=== PATIENT | female | born 1930 | race Caucasian/White ===

== ENCOUNTER 2016-06-19 10:10 | Inpatient (IN) ==
[2016-06-19] MEDS ORDERED: methylPREDNISolone 125 MG/2 ML VIAL IVP ONE (10:19)
[2016-06-19] MEDS ORDERED: Ipratropium/Albuterol Neb 3 ML IH ONE (10:19)
--- NOTE | 2016-06-19 10:33 | Emergency Department Note ---
Disposition Clinical Impression: Acute exacerbation of chronic obstructive airways disease, SVT ( supraventricular tachycardia) Disposition: Admitted As Inpatient Condition: Fair Referrals: NO,PCP [Non-Partnered Physician] - Forms: ED Satisfaction Letter SOB HPI - General Chief Complaint: ED Shortness of Breath/Dyspnea Stated Complaint: Shortness of breath Time Seen by Provider: 06/19/16 10:16 Source: patient, family Limitations: no limitations Nursing Notes Reviewed: Yes Vital Signs Reviewed: Yes - History of Present Illness 86-year-old history of COPD comes in complaining of increasing shortness of breath. Patient apparently left her breathing machine at another house when she was visiting. Does also have a history of blood clots and been off Xarelto since beginning of April. Pt Subjective Complaint: shortness of breath Severity: moderate Consistency/Duration: constant Improves with: nothing Worsens with: exertion Known history of: COPD Treatment prior to arrival: none Cough Frequency: Intermittent - Related Data Home Medications Medication Instructions Recorded Confirmed Albuterol Sulfate [Proair Hfa] 2 puff IH Q4H PRN 10/23/15 04/25/16 Donepezil [Aricept] 5 mg PO HS 10/23/15 04/25/16 Furosemide [Lasix] 40 mg PO DAILY PRN 10/23/15 04/25/16 Rivaroxaban [Xarelto] 20 mg PO DAILY 04/26/16 04/26/16 Previous Rx's Medication Instructions Recorded Metoprolol XL (24 HR) Succ [Toprol 12.5 mg PO DAILY #30 tab.er.24h 10/27/15 Xl] Levofloxacin 500 mg PO DAILY #5 tablet 04/28/16 Allergies Allergy/AdvReac Type Severity Reaction Status Date / Time cefdinir [From Omnicef] Allergy Hypertensio Verified 04/25/16 17:00 n Constitutional: Denies: fever, chills, weakness, weight change Eyes: Denies: eye pain, eye discharge, vision change ENT ED: Denies: ear pain, throat pain, dental pain, hearing loss, epistaxis, congestion, dysphagia Cardiovascular: Denies: chest pain, palpitations, dyspnea on exertion, edema, syncope Respiratory: Reports: cough, dyspnea, wheezes. Denies: hemoptysis, stridor Gastrointestinal: Denies: abdominal pain, nausea, vomiting, diarrhea, constipation, hematemesis, melena, hematochezia Genitourinary: Denies: dysuria, frequency, hematuria, discharge Musculoskeletal: Denies: back pain, neck pain, arthralgia, myalgia Integumentary: Denies: rash, abrasion, lesions Neurological: Denies: headache, weakness, numbness, paresthesias, confusion, abnormal gait, vertigo Psychiatric: Denies: anxiety, depression, suicidal thoughts, homicidal thoughts , auditory hallucinations, visual hallucinations Endocrine: Denies: fatigue Hematological/Lymphatic: Denies: easy bleeding, easy bruising Allergic/Immunologic: Denies: facial swelling, urticaria Past Medical History - Past Medical History Medical history: Reports: hypertension, pulmonary embolus, other Psychiatric history: Reports: no psych history - Social History Smoking Status: Never smoker Smokeless Tobacco Status: No Alcohol use: Reports: none Drug use: Reports: none Physical Exam - General Limitations: no limitations General appearance: alert, in no apparent distress - Head Head exam: atraumatic, normocephalic, normal inspection - Eye Eye exam: Present: normal appearance, PERRL, EOMI - ENT ENT exam: normal exam, normal oropharynx, mucous membranes moist - Neck Neck exam: Present: normal inspection, full ROM, trachea midline - Chest Chest inspection: Present: normal inspection, symmetric chest wall rise - Respiratory Respiratory exam: Present: normal lung sounds bilaterally, wheezes - Cardiovascular Cardiovascular exam: Present: regular rate - Abdominal Exam Abdominal exam: Present: soft, Non-Tender. Absent: tenderness, distention, guarding, rebound, rigidity - Extremities Exam Extremities exam: Present: normal inspection, full ROM. Absent: tenderness, pedal edema - Expanded Lower Extremity Exam Neurovascular/Tendon exam: Absent: motor deficit, sensory deficit, tendon deficit Gait: observed and normal - Back Exam Back exam: Present: normal inspection, full ROM. Absent: tenderness - Neurological Exam Neurological exam: Present: alert, oriented X3 - Psychiatric Psychiatric exam: Present: normal affect, normal mood - Skin Skin exam: Present: warm, dry, intact, normal color Course - Reevaluation(s) Reevaluation #1: Called to the room the patient had a acute onset rapid heartbeat EKG shows an SVT with a rate of about 155. Patient does have a history of pulmonary embolism was on anticoagulation for 6 months and stopped in April. There is some concern that she may have had a blood clot today I did review her renal function back on 28 April and it was normal. Her 1/kg of Lovenox, and we gave 6 and then a card with conversion of the SVT to sinus rhythm. Time: 10:53 - Consultations Consultation #1: Discussed with Dr. Pedraza, admit. Time: 12:47 Vital Signs Temperature 98.0 F 06/19/16 10:13 Pulse Rate 83 06/19/16 10:13 Respiratory Rate 16 06/19/16 10:13 Blood Pressure 220/102 06/19/16 10:13 O2 Sat by Pulse Oximetry 94 L 06/19/16 10:13 Temperature 98.0 F 06/19/16 10:13 Pulse Rate 84 06/19/16 12:36 Respiratory Rate 16 06/19/16 12:36 Blood Pressure 177/86 06/19/16 12:36 O2 Sat by Pulse Oximetry 95 06/19/16 12:36 Oxygen Delivery Oxygen Delivery Nasal Cannula Shortness of Breath/Dyspnea - MDM Narrative Medical decision making narrative: A repeat EKG showed SVT. Repeat EKG after a [place] shows sinus rhythm with PVCs. - Lab Data Lab results reviewed: Yes I reviewed the patient's lab results. Result diagrams: 06/19/16 10:36 06/19/16 10:36 Lab Results 06/19/16 06/19/16 06/19/16 Range/Units 10:36 10:36 10:36 WBC 6.0 (4.3-11.1) K/mcL RBC 5.11 H (3.82-4.97) M/mcL Hgb 14.8 (11.5-15.4) g/dL Hct 44.4 (35.3-44.9) % MCV 86.9 (83.0-100.0) fL MCH 29.0 (28.0-33.3) pg MCHC 33.3 (31.6-35.5) g/dL RDW 12.9 (11.5-14.5) % Plt Count 157 (140-400) K/mcL MPV 9.8 (9.4-12.4) fL Immature Gran % 0.3 (0-4) % Seg Neutrophils % 49.0 % Lymphocytes % 25.3 % Monocytes % 10.9 % Eosinophils % 13.3 % Basophils % 1.2 % Neutrophils # 2.9 (1.6-8.9) K/mcL Lymphocytes # 1.5 (0.6-4.6) K/mcL Monocytes # 0.7 (0.0-1.3) K/mcL Eosinophils # 0.8 H (0.0-0.6) K/mcL Basophils # 0.1 (0.0-0.2) K/mcL D-Dimer (0-500) ng/mLFEU Sodium 141 (136-145) mEq/L Potassium 3.9 (3.5-4.5) mEq/L Chloride 108 (98-109) mEq/L Carbon Dioxide 23 (19-29) mEq/L BUN 13 (7-20) mg/dL Creatinine 0.83 (0.57-1.11) mg/dL Est GFR ( Amer) > 60 (> 60) Est GFR (Non-Af Amer) > 60 (> 60) BUN/Creatinine Ratio 16 (6-26) Glucose 98 (70-99) mg/dL Calculated Osmolality 292 (280-300) Calcium 8.9 (8.6-10.8) mg/dL Troponin I 0.01 (0-0.03) ng/mL B-Natriuretic Peptide (0-100) pg/mL 06/19/16 06/19/16 Range/Units 10:36 10:44 WBC (4.3-11.1) K/mcL RBC (3.82-4.97) M/mcL Hgb (11.5-15.4) g/dL Hct (35.3-44.9) % MCV (83.0-100.0) fL MCH (28.0-33.3) pg MCHC (31.6-35.5) g/dL RDW (11.5-14.5) % Plt Count (140-400) K/mcL MPV (9.4-12.4) fL Immature Gran % (0-4) % Seg Neutrophils % % Lymphocytes % % Monocytes % % Eosinophils % % Basophils % % Neutrophils # (1.6-8.9) K/mcL Lymphocytes # (0.6-4.6) K/mcL Monocytes # (0.0-1.3) K/mcL Eosinophils # (0.0-0.6) K/mcL Basophils # (0.0-0.2) K/mcL D-Dimer 1268 H (0-500) ng/mLFEU Sodium (136-145) mEq/L Potassium (3.5-4.5) mEq/L Chloride (98-109) mEq/L Carbon Dioxide (19-29) mEq/L BUN (7-20) mg/dL Creatinine (0.57-1.11) mg/dL Est GFR ( Amer) (> 60) Est GFR (Non-Af Amer) (> 60) BUN/Creatinine Ratio (6-26) Glucose (70-99) mg/dL Calculated Osmolality (280-300) Calcium (8.6-10.8) mg/dL Troponin I (0-0.03) ng/mL B-Natriuretic Peptide 132 H (0-100) pg/mL - Radiology Data Radiology results reviewed: Yes I reviewed the patient's radiology results. Chest X-Ray 06/19/16 10:19 IMPRESSION: 1. No acute abnormality. D/ / Tito Pittman MD / Tito Pittman MD Interpreting Provider: Tito Pittman MD Chest CTA 06/19/16 11:02 IMPRESSION: 1. No evidence of pulmonary embolus or acute thoracic abnormality. 2. Large hiatal hernia. 3. Cholelithiasis. D/ / 06/19/2016 12:20:20 Milo Hernandez MD / ritika Interpreting Provider: Milo Hernandez MD - EKG Data EKG attestation: Yes I reviewed and interpreted this EKG. EKG shows normal: Reports: sinus rhythm Rate: Reports: normal Rhythm: Reports: NSR Interpretation: Reports: no acute changes
[2016-06-19] MEDS ORDERED: *HR* Adenosine 6 MG/2 ML VIAL IVP ONE (10:40)
[2016-06-19] MEDS ORDERED: 0.9 % Sodium Chloride 1,000 ML ONE (10:44)
[2016-06-19 10:45] LABS: Basophils # 0.1 K/mcL (0.0-0.2); Basophils % 1.2 %; Eosinophils # 0.8 K/mcL (0.0-0.6); Eosinophils % 13.3 %; Hematocrit 44.4 % (35.3-44.9); Hemoglobin 14.8 g/dL (11.5-15.4); Immature Granulocytes % 0.3 % (0-4); Lymphocytes # 1.5 K/mcL (0.6-4.6); Lymphocytes % 25.3 %; Mean Corpuscular HGB Conc 33.3 g/dL (31.6-35.5); Mean Corpuscular Volume 86.9 fL (83.0-100.0); Mean Platelet Volume 9.8 fL (9.4-12.4); Monocytes # 0.7 K/mcL (0.0-1.3); Monocytes % 10.9 %; Neutrophils # 2.9 K/mcL (1.6-8.9); Platelet Count 157 K/mcL (140-400); Red Blood Count 5.11 M/mcL (3.82-4.97); Red Cell Distribution Width 12.9 % (11.5-14.5)
[2016-06-19] MEDS ORDERED: *HR* Enoxaparin 80 MG/0.8 ML SYRINGE SQ STA (10:53)
[2016-06-19 10:57] LABS: BUN/Creatinine Ratio 16 (6-26); Blood Urea Nitrogen 13 mg/dL (7-20); Calcium 8.9 mg/dL (8.6-10.8); Carbon Dioxide 23 mEq/L (19-29); Chloride 108 mEq/L (98-109); Glucose 98 mg/dL (70-99); Osmolality,Calculated 292 (280-300); Potassium 3.9 mEq/L (3.5-4.5); Sodium 141 mEq/L (136-145); eGFR For African Americans > 60 (> 60); eGFR For Non-African Americans > 60 (> 60)
[2016-06-19] MEDS ORDERED: Naloxone 0.4 MG/ML INJ IVP PRN (14:03)
[2016-06-19] MEDS ORDERED: Ondansetron 4 MG/2 ML VIAL IVP PRN (14:03)
[2016-06-19] MEDS ORDERED: Furosemide 40 MG TABLET PO PRN (14:10)
--- NOTE | 2016-06-19 14:17 | Internal Med History&Physical ---
<Dean Paulino - Last Filed: 06/19/16 14:18> Date of Encounter: 06/19/16 Time of Encounter: 13:30 Assessment and Plan (1) Acute exacerbation of chronic obstructive airways disease Current visit: Yes Status: Acute Will start supportive measures with supplemental oxygen, scheduled breathing treatments, and IV steroids No indication for antibiotics at this time as patient does not have fever or white count; await blood cultures She does not have any long acting inhalers at home, and would likely benefit from them upon discharge (2) History of pulmonary embolism Current visit: Yes Status: Acute Patient had likely provoked PE (from long car ride) and completed 6 months of Xarelto in April D-dimer elevated and CTA done in ED unremarkable for PE She did receive one therapeutic dose of of Lovenox, will continue with prophylactic dose (3) Diastolic CHF Current visit: Yes Status: Chronic Not currently in exacerbation as patient does not have any signs of fluid overload Will obtain repeat echocardiogram as patient did have arrhythmia while in ED; last one in August She does have Lasix PRN at home for fluid retention, which we will continue here Measure daily weights and I/O's Qualifiers: Qualified Code(s): I50.30 - Unspecified diastolic (congestive) heart failure (4) SVT (supraventricular tachycardia) Current visit: Yes Status: Resolved Patient did covert to NSR in the ED after Adenosine Will continue on telemetry and obtain echocardiogram (5) Hypertension Current visit: No Status: Chronic BP has been elevated upon admission Start on Hydralazine 10 mg q6hr for SBP > 150 Continue home Toprol dose and monitor vitals closely Qualifiers: Hypertension type: essential hypertension Qualified Code(s): I10 - Essential (primary) hypertension (6) Dementia Current visit: No Status: Chronic According to daughter, patient's mental status currently at baseline Will continue home Aricept Qualifiers: Dementia type: unspecified type Dementia behavioral disturbance: without behavioral disturbance Qualified Code(s): F03.90 - Unspecified dementia without behavioral disturbance (7) DVT prophylaxis Current visit: No Status: Acute Lovenox 40 mg SQ daily Internal Medicine - H&P: HPI Chief complaint: shortness of breath Admitted From: Home Plans for Post Hospital Care: Home History of present illness: Ms. Salmeron is a 86 year old female who presents from home with worsening shortness of breath over the past 2 days. Pt does have dementia and her daughter is at bedside and able to assist with history. She states her symptoms worsen with exertion and she has been having wheezing and a non-productive cough. She does have a history of COPD but does not have home oxygen and left her nebulizer in another state. Patient has a history of pulmonary embolism last October, which was likely provoked due to immobility from a long car ride, and she was treated with 6 months of Xarelto until last April. She denies any chest pain, nausea, vomiting, diarrhea, trouble urinating, fevers, or chills. She had a run of SVT while in the ED and converted to NSR with Adenosine. She does report a history of "fast heart beat". Past Med Surg Social Fam HX - Past Medical History Medical history: hypertension, pulmonary embolus, other Psychiatric history: no psych history - Social History Smoking Status: Never smoker Smokeless Tobacco Status: No Alcohol use: none Drug use: none Internal Medicine - H&P: Meds Albuterol Sulfate [Proair Hfa] 2 puff IH Q4H PRN 10/23/15 [History] Donepezil [Aricept] 5 mg PO HS 10/23/15 [History] Furosemide [Lasix] 40 mg PO DAILY PRN 10/23/15 [History] Metoprolol XL (24 HR) Succ [Toprol Xl] 12.5 mg PO DAILY #30 tab.er.24h 10/27/15 [Rx] Allergies cefdinir [From Omnicef] Allergy (Verified 04/25/16 17:00) Hypertension All Systems PM: A 10-system review of systems was performed and is negative for pertinent findings except as documented above in the HPI. - Constitutional Constitutional: no chills, no fever(s), no night sweats - EENT Eyes: no change in vision, no discharge, no pain, no photophobia Nose, mouth and throat: no dysphagia, no nasal discharge, no neck pain, no sore throat - Cardiovascular Cardiovascular ROS IM: dyspnea, dyspnea on exertion, irregular heart rhythm, no chest pain, no diaphoresis, no lightheadedness, no palpitations, no syncope - Respiratory Respiratory: cough, wheezing, no dyspnea, no excessive phlegm production - Gastrointestinal Gastrointestinal: no abdominal pain, no diarrhea, no hematemesis, no hematochezia, no melena, no nausea, no vomiting - Genitourinary Genitourinary: no change in urinary stream, no dysuria, no flank pain, no hematuria - Musculoskeletal Musculoskeletal ROS IM: no numbness, no tingling - Integumentary Integumentary IM: no rash, no unusual bruising - Neurological Neurological ROS: no confusion, no convulsions, no focal weakness, no numbness, no tingling, no tremor(s) - Hematologic/Lymphatic Hematologic/Lymphatic: no easy bruising - Constitutional Vitals: Temp Pulse Resp BP Pulse Ox 98.1 F 57 16 175/69 95 06/19/16 13:35 06/19/16 14:10 06/19/16 13:35 06/19/16 14:10 06/19/16 14:10 General appearance: Present: cooperative, A&O X 3, pleasant, no acute distress, answers questions appropriately - Head Head exam: Present: atraumatic, normocephalic - Eye Eye exam: Present: PERRL, conjuntiva pink, sclera anicteric - Neck Neck exam general surgery: Present: supple, trachea midline. Absent: lymphadenopathy - Respiratory Respiratory exam: Present: chest wall tenderness (right side ribs), wheezes. Absent: accessory muscle use, rales, rhonchi - Cardiovascular Cardiovascular exam: Present: RRR, +S1, +S2. Absent: diastolic murmur, gallop, rubs, systolic murmur - GI/Abdominal GI/Abdominal exam: Present: normal bowel sounds, soft, no peritoneal signs. Absent: distended, tenderness - Extremities Exam Extremities exam: Present: warm, radial pulses palpable and symetrical. Absent : calf tenderness, cyanotic, pedal edema - Neurological Exam Neurological exam: Present: alert, oriented X3, no focal deficits. Absent: facial droop, speech deficit - Skin Skin exam: Present: dry, intact Internal Med - H&P Results - Labs CBC & Chem 7: 06/19/16 10:36 06/19/16 10:36 <Criselda Temple - Last Filed: 06/19/16 15:29> Date of Encounter: 06/19/16 Internal Medicine - H&P: HPI History of present illness: Ms. Salmeron is a 86 year old female All Systems PM: A 10-system review of systems was performed and is negative for pertinent findings except as documented above in the HPI. - Constitutional Vitals: Temp Pulse Resp BP Pulse Ox 98.1 F 57 16 164/88 95 06/19/16 13:35 06/19/16 14:10 06/19/16 13:35 06/19/16 14:44 06/19/16 14:39 Internal Med - H&P Results - Labs CBC & Chem 7: 06/19/16 10:36 06/19/16 10:36 - Attending Attestation Patient was independently seen and examined with family present at bedside. Patient currently resting comfortably in bed, saturating well on nasal cannula. Reports of not being on home oxygen. Please reevaluate the need of home O2 once patient clinically improves. I had a detailed discussion about patient advanced directives with the patient and the daughter. As of now patient and family wishes to keep the patient as full code. I have reviewed the case with the resident physician and agree with his documented findings, assessment, and plan.
[2016-06-19] MEDS: Ipratropium/Albuterol Neb 3 ML IH SCH ×2 (15:52→22:19)
[2016-06-19] MEDS: MethylPREDNISolone 40 MG/ML VIAL IVP SCH ×2 (18:15→23:45)
[2016-06-19] MEDS: Budesonide/Formoterol 80/4.5 MDI IH SCH (22:19)
[2016-06-20] MEDS ORDERED: Menthol 9.1 MG LOZENGE PO PRN (02:46)
[2016-06-20] MEDS: Benzonatate 100 MG CAPSULE PO PRN ×3 (02:55→23:01)
[2016-06-20] MEDS: Ipratropium/Albuterol Neb 3 ML IH SCH ×4 (04:20→22:27)
[2016-06-20] MEDS: *HR* Enoxaparin 40 MG/0.4 ML SYRINGE SQ SCH (05:22)
[2016-06-20 05:30] LABS: Hematocrit 40.1 % (35.3-44.9); Hemoglobin 13.4 g/dL (11.5-15.4); Immature Granulocytes % 0.7 % (0-4); Lymphocytes # 0.7 K/mcL (0.6-4.6); Lymphocytes % 12.2 %; Mean Corpuscular HGB Conc 33.4 g/dL (31.6-35.5); Mean Corpuscular Hemoglobin 29.2 pg (28.0-33.3); Mean Corpuscular Volume 87.4 fL (83.0-100.0); Mean Platelet Volume 10.5 fL (9.4-12.4); Monocytes # 0.1 K/mcL (0.0-1.3); Neutrophils # 5.2 K/mcL (1.6-8.9); Platelet Count 161 K/mcL (140-400); Red Blood Count 4.59 M/mcL (3.82-4.97); Red Cell Distribution Width 12.9 % (11.5-14.5); Segmented Neutrophils % 86.1 %
[2016-06-20 05:43] LABS: Alanine Aminotransferase 8 Units/L (0-55); Albumin 3.5 g/dL (3.5-5.0); Albumin/Globulin Ratio 1.1 (1.1-2.2); Alkaline Phosphatase 80 Units/L (38-126); Aspartate Amino Transferase 15 Units/L (5-34); BUN/Creatinine Ratio 22 (6-26); Bilirubin,Total 0.5 mg/dL (0.2-1.2); Blood Urea Nitrogen 18 mg/dL (7-20); Carbon Dioxide 16 mEq/L (19-29); Chloride 108 mEq/L (98-109); Globulin 3.1 g/dL (2.4-3.5); Glucose 204 mg/dL (70-99); Osmolality,Calculated 288 (280-300); Potassium 3.9 mEq/L (3.5-4.5); Sodium 135 mEq/L (136-145); Total Protein 6.6 g/dL (6.0-8.3); eGFR For African Americans > 60 (> 60); eGFR For Non-African Americans > 60 (> 60)
[2016-06-20] MEDS: Acetaminophen 325 MG TABLET PO PRN (07:44)
[2016-06-20] MEDS: MethylPREDNISolone 40 MG/ML VIAL IVP SCH ×3 (07:46→23:01)
[2016-06-20] MEDS ORDERED: Metoprolol XL (24 HR) Succ 25 MG TAB.ER.24H PO SCH (09:00)
[2016-06-20] MEDS: Budesonide/Formoterol 80/4.5 MDI IH SCH ×2 (10:08→22:27)
[2016-06-20] MEDS: Levofloxacin 500 MG/100 ML 500 MG/100 ML BAG IVPB SCH (10:49)
--- NOTE | 2016-06-20 12:02 | Event Note ---
Date of Encounter: 06/20/16 Time of Encounter: 11:56 86/female Pertinent medical history: Diastolic CHF, hypertension, history of pulmonary embolism, advanced dementia and COPD. Brief history of present illness: Patient had a worsening history of shortness of breath which was gradually worsening along with the cough and mucopurulent expectoration. Patient lives with her daughter and daughter was really concerned regarding gradually worsening of her mother's illness. Patient was evaluated in the emergency room for worsening shortness of breath. She was worked up for the same. CT of chest was negative for pulmonary embolism. Troponins were negative too. Patient was admitted for further evaluation in the hospital. Reason for admission: Exacerbation of underlying COPD. This requires intravenous antibiotics and intravenous steroids. Physical examination: Examined this patient at bedside. Patient is comfortably lying down in the bed. Examination of her head, eyes, ear, nose, oral cavity and cervical area did not show any abnormality. Examination of the heart was within normal limits. I heard few crepitations and polyphonic wheezes all around her lung area. Examination of her abdomen was benign. A brief neurological examination did not reveal any abnormality. There was no breaks or bruises on the screen. Her mood was normal. Assessment and plan: Possible COPD exacerbation. Plan: -Antibiotics: IV levofloxacin 500 mg 224 hours. -Steroids: Oral prednisone 40 mg every day. -Bronchodilator dose: We will administer bronchodilators at scheduled interval. -We will get echocardiogram. -I have spoken to patient's daughter at length regarding the plan. At this point they do not have any question or concern.
--- NOTE | 2016-06-20 14:37 | ECHO - Doppler Report ---
Echocardiogram Name: Jackie Salmeron Date of Study: 06/20/2016 Date: 1930 Ht: 59.0 in Medical Record#: [id number] Age: 86 Wt: 145.0 lb Gender: Female BSA: 1.61 Order #: [id number] Location: [facility] Room #: 2NE16 Reading Physician: Bouchra Dial DO Second Baker: Keshia Carrasco Ordering Physician: Dean Paulino DO Primary Physician: Chrissy Marie DO Indications: Worsening dyspnea, Hx Congestive Heart Failure Impressions: LVEF 65%. Normal left ventricular size and systolic function. There is evidence of mild diastolic dysfunction of the left ventricle. RV is not well visualized. No significant valvular dysfunction. IVC is not well visualized to measure RVSP. Left Ventricular Wall Motion: Rest Echo Findings All wall segments showed normal motion. Findings: Study Quality * Technically adequate exam. ECG Findings * Normal sinus rhythm. Left Ventricle * LVEF 65%. * Mild left ventricular diastolic dysfunction. * LV wall thickness could not be well measured in the PLAX views. Aortic Valve * No aortic regurgitation. * Aortic valve not well visualized. There does appear to be a fair amount of calcification. * No aortic stenosis. Mitral Valve * No mitral regurgitation. * Normal mitral valve structure. * No mitral stenosis. * Mild mitral annular calcification Tricuspid Valve * Tricuspid valve not well visualized. * No tricuspid regurgitation. Pulmonic Valve * Pulmonic valve is not well visualized. * No pulmonic stenosis. * Trace pulmonic regurgitation. Pulmonary Artery * Pulmonary artery not well visualized. Left Atrium * Normal left atrial size. Right Atrium * Right atrium is not well visualized. Interatrial Septum * Interatrial septum not well evaluated. IVC * The IVC is not well evaluated. Pericardium * There is no pericardial effusion present. Right Ventricle * Not well visualized. Aorta * Normally sized aortic root. History Hypertension 08/13/2015 a Previous Echo was performed. Measurements: BP: 131/ 66 2D Normal Values IVSd: .91 cm 0.6 - 1.0 cm LVIDd: 4.37 cm 3.7 - 5.6 cm LVPWd: .86 cm 0.6 - 1.1 cm LVIDs: 2.19 cm 1.5 - 3.6 cm AO: 2.50 cm < 4.0 cm LA: 3.00 cm 2.0 - 4.0cm %FS: 49.90 cm >25 % LVOT Diam: 1.70 cm LA volume: 45 Mitral Valve Peak E:.98 m/sec Peak A:1.15 m/sec E/A Ratio:0.9 Peak E' Lat Diallo:11.1 cm/s Peak E' Med Diallo:7.83 cm/s E/E' Lat Ratio:8.8 E/E' Med Ratio:12.5 Tricuspid Valve TV Regurg Peak Grad: 24.00mmHg TV Regurg Peak Diallo: 2.46m/sec Updated by Bouchra Dial on 06/20/2016 2:30:54 PM Wall Motion Barone: 1=Normal, 2=Hypokinesis, 3=Akinesis, 4=Dyskinesis, 5=Aneurysmal, 6=Hyperkinetic, X=Not Visualized (Blank)=Missing
[2016-06-20] MEDS ORDERED: *HR* Metoprolol 5 MG/5 ML VIAL IVP ONE (23:58)
[2016-06-21 00:20] LABS: Basophils % 0.1 %; Hemoglobin 13.2 g/dL (11.5-15.4); Immature Granulocytes % 0.5 % (0-4); Lymphocytes # 0.5 K/mcL (0.6-4.6); Lymphocytes % 3.2 %; Mean Corpuscular HGB Conc 33.8 g/dL (31.6-35.5); Mean Corpuscular Hemoglobin 29.3 pg (28.0-33.3); Mean Corpuscular Volume 86.7 fL (83.0-100.0); Mean Platelet Volume 10.4 fL (9.4-12.4); Monocytes # 0.3 K/mcL (0.0-1.3); Monocytes % 1.8 %; Neutrophils # 13.8 K/mcL (1.6-8.9); Platelet Count 163 K/mcL (140-400); Red Cell Distribution Width 13.1 % (11.5-14.5); Segmented Neutrophils % 94.4 %
[2016-06-21 00:31] LABS: Alanine Aminotransferase 8 Units/L (0-55); Albumin 3.7 g/dL (3.5-5.0); Albumin/Globulin Ratio 1.4 (1.1-2.2); Alkaline Phosphatase 73 Units/L (38-126); Aspartate Amino Transferase 19 Units/L (5-34); BUN/Creatinine Ratio 24 (6-26); Bilirubin,Total 0.5 mg/dL (0.2-1.2); Blood Urea Nitrogen 21 mg/dL (7-20); Carbon Dioxide 20 mEq/L (19-29); Chloride 107 mEq/L (98-109); Globulin 2.6 g/dL (2.4-3.5); Glucose 169 mg/dL (70-99); Osmolality,Calculated 287 (280-300); Potassium 3.8 mEq/L (3.5-4.5); Sodium 135 mEq/L (136-145); Total Protein 6.3 g/dL (6.0-8.3); eGFR For African Americans > 60 (> 60); eGFR For Non-African Americans > 60 (> 60)
[2016-06-21] MEDS: Ipratropium/Albuterol Neb 3 ML IH SCH ×4 (03:58→22:31)
[2016-06-21] MEDS: *HR* Enoxaparin 40 MG/0.4 ML SYRINGE SQ SCH (05:24)
[2016-06-21] MEDS: Benzonatate 100 MG CAPSULE PO PRN ×2 (05:27→14:30)
[2016-06-21] MEDS: MethylPREDNISolone 40 MG/ML VIAL IVP SCH (08:43)
[2016-06-21] MEDS ORDERED: Metoprolol XL (24 HR) Succ 50 MG TAB.ER.24H PO SCH (09:00)
[2016-06-21] MEDS: Budesonide/Formoterol 80/4.5 MDI IH SCH ×2 (11:23→22:31)
--- NOTE | 2016-06-21 12:18 | Electrocardiograph Report ---
[facility] Test Date: 2016-06-19 Pat Name: Jackie Salmeron Department: 102 Room: 2NE16 Gender: F Addiction Professional: Ovi : 1930 Requested By: José Miguel Rodríguez Order Number: [id number] Reading MD: Raffaele Celestin DO Measurements Intervals [place] Rate: 84 P: 80 TN: 189 QRS: 51 QRSD: 84 T: 70 QT: 335 QTc: 376 Interpretive Statements Sinus rhythm Left atrial enlargement PVCs Electronically Signed On 06-21-16 12:17:49 EST by Raffaele Celestin DO
--- NOTE | 2016-06-21 12:19 | Electrocardiograph Report ---
[facility] Test Date: 2016-06-19 Pat Name: Jackie Salmeron Department: 102 Room: 2NE16 Gender: F Conventional Machinist: Ovi : 1930 Requested By: Francois Griggs Order Number: [id number] Reading MD: Raffaele Celestin DO Measurements Intervals [place] Rate: 96 P: 64 MS: 190 QRS: 39 QRSD: 90 T: 57 QT: 330 QTc: 384 Interpretive Statements Sinus rhythm Left atrial enlargement Nonspecific ST-T changes Electronically Signed On 06-21-16 12:19:16 EST by Raffaele Celestin DO
--- NOTE | 2016-06-21 12:19 | Electrocardiograph Report ---
[facility] Test Date: 2016-06-19 Pat Name: Jackie Salmeron Department: 102 Room: 2NE16 Gender: F Credit Compliance Officer: Ovi : 1930 Requested By: Francois Griggs Order Number: [id number] Reading MD: Raffaele Celestin DO Measurements Intervals [place] Rate: 148 P: SC: 0 QRS: 54 QRSD: 96 T: 51 QT: 286 QTc: 371 Interpretive Statements Supraventricular tachycardia, possibly AVNRT ST changes probably due to rate Electronically Signed On 06-21-16 12:18:37 EST by Raffaele Celestin DO
--- NOTE | 2016-06-21 12:59 | Internal Med Progress Note ---
<Dean Paulino - Last Filed: 06/21/16 14:30> Date of Encounter: 06/21/16 Time of Encounter: 12:58 - Assessment and plan (1) Acute exacerbation of chronic obstructive airways disease Current Visit: Yes Status: Acute Assessment and plan: Will continue supportive measures with supplemental oxygen, scheduled breathing treatments, and changed to PO steroids Continue Levaquin 500 mg, day 2; blood cultures x2 negative thus far She does not have any oxygen long acting inhalers at home, and would likely benefit from them upon discharge (2) History of pulmonary embolism Current Visit: Yes Status: Acute Assessment and plan: Patient had likely provoked PE (from long car ride) and completed 6 months of Xarelto in April D-dimer elevated and CTA done in ED unremarkable for PE Continue with prophylactic dose of Lovenox (3) Diastolic CHF Current Visit: Yes Status: Chronic Assessment and plan: Not currently in exacerbation as patient does not have any signs of fluid overload Echocardiogram shows EF 65% with mild diastolic dysfunction She does have Lasix PRN at home for fluid retention and beta vicky, which we will continue here Qualifiers: Qualified Code(s): I50.30 - Unspecified diastolic (congestive) heart failure (4) Hypertension Current Visit: No Status: Chronic Assessment and plan: BP has been slightly better since admission Continue Hydralazine 10 mg q6hr for SBP > 150 Increased beta vicky dose and monitor vitals closely Qualifiers: Hypertension type: essential hypertension Qualified Code(s): I10 - Essential (primary) hypertension (5) Dementia Current Visit: No Status: Chronic Assessment and plan: According to daughter, patient's mental status currently at baseline Will continue home Aricept Qualifiers: Dementia type: unspecified type Dementia behavioral disturbance: without behavioral disturbance Qualified Code(s): F03.90 - Unspecified dementia without behavioral disturbance (6) DVT prophylaxis Current Visit: No Status: Acute Assessment and plan: Lovenox 40 mg SQ daily - Subjective Interval history: Pt seen and examined. She states she is breathing better today but still not at her baseline. Denies pain anywhere including her chest. She does report a non- productive cough and being awake all night due to steroids. Denies nausea, vomiting, diarrhea, fevers. - Constitutional Vitals: Temp Pulse Resp BP Pulse Ox 97.4 F L 137 20 142/95 96 06/21/16 11:16 06/21/16 11:16 06/21/16 11:24 06/21/16 11:16 06/21/16 11:24 General appearance: Present: cooperative, pleasant, no acute distress, answers questions appropriately - Head Head exam: Present: atraumatic, normocephalic - Eye Eye exam: Present: PERRL, conjuntiva pink, sclera anicteric - Neck Neck exam general surgery: Present: supple, trachea midline. Absent: lymphadenopathy - Respiratory Respiratory exam: Present: wheezes (mild). Absent: accessory muscle use, rales , rhonchi - Cardiovascular Cardiovascular exam: Present: RRR, +S1, +S2. Absent: diastolic murmur, gallop, rubs, systolic murmur - GI/Abdominal GI/Abdominal exam: Present: normal bowel sounds, soft, no peritoneal signs. Absent: distended, tenderness - Extremities Exam Extremities exam: Present: tenderness, warm, radial pulses palpable and symetrical. Absent: calf tenderness, cyanotic, pedal edema - Neurological Exam Neurological exam: Present: alert, oriented X3, no focal deficits. Absent: facial droop, speech deficit - Skin Skin exam: Present: dry, intact Internal Medicine: Result - Labs CBC & Chem 7: 06/21/16 00:05 06/21/16 00:05 Labs: Short CBC 06/21/16 Range/Units 00:05 WBC 14.6 H D (4.3-11.1) K/mcL Hgb 13.2 (11.5-15.4) g/dL Hct 39.0 (35.3-44.9) % Plt Count 163 (140-400) K/mcL Neutrophils # 13.8 H (1.6-8.9) K/mcL BMP 06/21/16 00:05 Sodium 135 L Potassium 3.8 Chloride 107 Carbon Dioxide 20 BUN 21 H Creatinine 0.88 Glucose 169 H Calcium 9.0 Cardiac Enzymes 06/21/16 06/21/16 06/21/16 Range/Units 00:05 05:15 11:41 Troponin I 0.02 0.02 0.02 (0-0.03) ng/mL Liver Function 06/21/16 Range/Units 00:05 Total Bilirubin 0.5 (0.2-1.2) mg/dL AST 19 (5-34) Units/L ALT 8 (0-55) Units/L Alkaline Phosphatase 73 (38-126) Units/L Albumin 3.7 (3.5-5.0) g/dL - ABG Interpretation ABG results: PT/INR, D-dimer D-Dimer 1268 ng/mLFEU (0-500) H 06/19/16 10:44 Consult Discharge Plan - Plan Referrals: Chrissy Marie DO [Primary Care Provider] - 06/30/16 9:30 am <Francois Griggs - Last Filed: 06/21/16 18:09> Date of Encounter: 06/21/16 - Constitutional Vitals: Temp Pulse Resp BP Pulse Ox 98.1 F 77 16 179/85 94 L 06/21/16 15:35 06/21/16 17:42 06/21/16 17:42 06/21/16 17:42 06/21/16 17:42 Internal Medicine: Result - Labs CBC & Chem 7: 06/21/16 00:05 06/21/16 00:05 Labs: Short CBC 06/21/16 Range/Units 00:05 WBC 14.6 H D (4.3-11.1) K/mcL Hgb 13.2 (11.5-15.4) g/dL Hct 39.0 (35.3-44.9) % Plt Count 163 (140-400) K/mcL Neutrophils # 13.8 H (1.6-8.9) K/mcL BMP 06/21/16 00:05 Sodium 135 L Potassium 3.8 Chloride 107 Carbon Dioxide 20 BUN 21 H Creatinine 0.88 Glucose 169 H Calcium 9.0 Cardiac Enzymes 06/21/16 06/21/16 06/21/16 Range/Units 00:05 05:15 11:41 Troponin I 0.02 0.02 0.02 (0-0.03) ng/mL Liver Function 06/21/16 Range/Units 00:05 Total Bilirubin 0.5 (0.2-1.2) mg/dL AST 19 (5-34) Units/L ALT 8 (0-55) Units/L Alkaline Phosphatase 73 (38-126) Units/L Albumin 3.7 (3.5-5.0) g/dL - ABG Interpretation ABG results: PT/INR, D-dimer D-Dimer 1268 ng/mLFEU (0-500) H 06/19/16 10:44 - Attending Attestation I examined this patient and my medical decision-making was reviewed with the MAIL HANDLER/PA/Advanced Practice Nurse/Resident Physician. I agree with the documented findings, disposition and treatment plan as described except to the extent set forth below.
[2016-06-21] MEDS: Levofloxacin 500 MG/100 ML 500 MG/100 ML BAG IVPB SCH (14:21)
[2016-06-21] MEDS: Acetaminophen 325 MG TABLET PO PRN (14:28)
--- NOTE | 2016-06-21 15:08 | Electrocardiograph Report ---
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
[2016-06-21] MEDS ORDERED: MethylPREDNISolone 40 MG/ML VIAL IVP SCH (19:00)
[2016-06-22] MEDS: Ipratropium/Albuterol Neb 3 ML IH SCH ×4 (04:36→22:02)
[2016-06-22 05:17] LABS: Basophils % 0.1 %; Hematocrit 38.3 % (35.3-44.9); Hemoglobin 12.7 g/dL (11.5-15.4); Immature Granulocytes % 0.6 % (0-4); Lymphocytes % 8.3 %; Mean Corpuscular HGB Conc 33.2 g/dL (31.6-35.5); Mean Corpuscular Hemoglobin 29.1 pg (28.0-33.3); Mean Corpuscular Volume 87.6 fL (83.0-100.0); Mean Platelet Volume 10.5 fL (9.4-12.4); Monocytes # 0.8 K/mcL (0.0-1.3); Neutrophils # 10.6 K/mcL (1.6-8.9); Platelet Count 189 K/mcL (140-400); Red Blood Count 4.37 M/mcL (3.82-4.97); Red Cell Distribution Width 13.3 % (11.5-14.5)
[2016-06-22 05:30] LABS: BUN/Creatinine Ratio 29 (6-26); Blood Urea Nitrogen 23 mg/dL (7-20); Calcium 8.7 mg/dL (8.6-10.8); Carbon Dioxide 20 mEq/L (19-29); Chloride 109 mEq/L (98-109); Glucose 89 mg/dL (70-99); Osmolality,Calculated 287 (280-300); Potassium 4.2 mEq/L (3.5-4.5); Sodium 137 mEq/L (136-145); eGFR For African Americans > 60 (> 60); eGFR For Non-African Americans > 60 (> 60)
[2016-06-22] MEDS: *HR* Enoxaparin 40 MG/0.4 ML SYRINGE SQ SCH (05:54)
[2016-06-22] MEDS ORDERED: predniSONE 20 MG TABLET PO SCH (09:00)
--- NOTE | 2016-06-22 09:22 | Internal Med Progress Note ---
<PaulinoDean - Last Filed: 06/22/16 14:48> Date of Encounter: 06/22/16 Time of Encounter: 09:20 - Assessment and plan (1) Acute exacerbation of chronic obstructive airways disease Current Visit: Yes Status: Acute Assessment and plan: Will continue supportive measures with supplemental oxygen, scheduled breathing treatments; clinically improving today Transitioned to PO steroids and she slept much better last night Add Mucinex to help with expectorant for sputum Continue Levaquin 500 mg, day 3; blood cultures x2 negative thus far She does not have any oxygen long acting inhalers at home, and would likely benefit from them upon discharge (2) History of pulmonary embolism Current Visit: Yes Status: Acute Assessment and plan: Patient had likely provoked PE (from long car ride) and completed 6 months of Xarelto in April D-dimer elevated and CTA done in ED unremarkable for PE Continue with prophylactic dose of Lovenox (3) Diastolic CHF Current Visit: Yes Status: Chronic Assessment and plan: Not currently in exacerbation as patient does not have any signs of fluid overload Echocardiogram shows EF 65% with mild diastolic dysfunction She does have Lasix PRN at home for fluid retention and beta vicky, which we will continue here Qualifiers: Qualified Code(s): I50.30 - Unspecified diastolic (congestive) heart failure (4) Hypertension Current Visit: No Status: Chronic Assessment and plan: BP has been slightly better since admission Continue Hydralazine 10 mg q6hr for SBP > 150 Increased beta vicky dose and monitor vitals closely Qualifiers: Hypertension type: essential hypertension Qualified Code(s): I10 - Essential (primary) hypertension (5) Dementia Current Visit: No Status: Chronic Assessment and plan: According to daughter, patient's mental status currently at baseline Will continue home Aricept PT/OT has recommended home health upon discharge Qualifiers: Dementia type: unspecified type Dementia behavioral disturbance: without behavioral disturbance Qualified Code(s): F03.90 - Unspecified dementia without behavioral disturbance (6) DVT prophylaxis Current Visit: No Status: Acute Assessment and plan: Lovenox 40 mg SQ daily - Subjective Interval history: Pt seen and examined. She continues to improve with her breathing and does not complain of any pain anywhere, as her rib pain has resolved. Eating well, denies any nausea, vomiting, diarrhea. She still has a non-productive cough. - Constitutional Vitals: Temp Pulse Resp BP Pulse Ox 97.6 F 74 16 156/67 97 06/22/16 06:37 06/22/16 06:37 06/22/16 06:37 06/22/16 06:37 06/22/16 06:37 General appearance: Present: cooperative, pleasant, no acute distress, answers questions appropriately - Head Head exam: Present: atraumatic, normocephalic - Eye Eye exam: Present: PERRL, conjuntiva pink, sclera anicteric - Neck Neck exam general surgery: Present: supple, trachea midline. Absent: lymphadenopathy - Respiratory Respiratory exam: Present: wheezes (faint). Absent: accessory muscle use, rhonchi - Cardiovascular Cardiovascular exam: Present: RRR, +S1, +S2. Absent: diastolic murmur, gallop, rubs, systolic murmur - GI/Abdominal GI/Abdominal exam: Present: normal bowel sounds, soft, no peritoneal signs. Absent: distended, tenderness - Extremities Exam Extremities exam: Present: warm, radial pulses palpable and symetrical. Absent : calf tenderness, cyanotic, pedal edema - Neurological Exam Neurological exam: Present: alert, oriented X3, no focal deficits. Absent: pronater drift, facial droop, speech deficit - Skin Skin exam: Present: dry, intact Internal Medicine: Result - Labs CBC & Chem 7: 06/22/16 04:24 06/22/16 04:24 Labs: Short CBC 06/22/16 Range/Units 04:24 WBC 12.5 H (4.3-11.1) K/mcL Hgb 12.7 (11.5-15.4) g/dL Hct 38.3 (35.3-44.9) % Plt Count 189 (140-400) K/mcL Neutrophils # 10.6 H (1.6-8.9) K/mcL BMP 06/22/16 04:24 Sodium 137 Potassium 4.2 Chloride 109 Carbon Dioxide 20 BUN 23 H Creatinine 0.80 Glucose 89 Calcium 8.7 Cardiac Enzymes 06/21/16 Range/Units 11:41 Troponin I 0.02 (0-0.03) ng/mL - ABG Interpretation ABG results: PT/INR, D-dimer D-Dimer 1268 ng/mLFEU (0-500) H 06/19/16 10:44 Consult Discharge Plan - Plan Referrals: Chrissy Marie DO [Primary Care Provider] - 06/30/16 9:30 am <Francois Griggs - Last Filed: 06/22/16 16:39> Date of Encounter: 06/22/16 - Constitutional Vitals: Temp Pulse Resp BP Pulse Ox 97.5 F L 76 16 155/72 94 L 06/22/16 11:45 06/22/16 11:45 06/22/16 15:46 06/22/16 11:45 06/22/16 15:46 Internal Medicine: Result - Labs CBC & Chem 7: 06/22/16 04:24 06/22/16 04:24 Labs: Short CBC 06/22/16 Range/Units 04:24 WBC 12.5 H (4.3-11.1) K/mcL Hgb 12.7 (11.5-15.4) g/dL Hct 38.3 (35.3-44.9) % Plt Count 189 (140-400) K/mcL Neutrophils # 10.6 H (1.6-8.9) K/mcL BMP 06/22/16 04:24 Sodium 137 Potassium 4.2 Chloride 109 Carbon Dioxide 20 BUN 23 H Creatinine 0.80 Glucose 89 Calcium 8.7 - ABG Interpretation ABG results: PT/INR, D-dimer D-Dimer 1268 ng/mLFEU (0-500) H 06/19/16 10:44 - Attending Attestation I examined this patient and my medical decision-making was reviewed with the KEY RINGER/PA/Advanced Practice Nurse/Resident Physician. I agree with the documented findings, disposition and treatment plan as described except to the extent set forth below. Likely home tomorrow.
[2016-06-22] MEDS: Budesonide/Formoterol 80/4.5 MDI IH SCH ×2 (10:44→22:02)
[2016-06-22] MEDS: Benzonatate 100 MG CAPSULE PO PRN ×2 (11:09→20:48)
[2016-06-22] MEDS: Levofloxacin 500 MG/100 ML 500 MG/100 ML BAG IVPB SCH (14:00)
[2016-06-22] MEDS: Acetaminophen 325 MG TABLET PO PRN (17:21)
[2016-06-22] MEDS: predniSONE 20 MG TABLET PO SCH (17:21)
[2016-06-23] MEDS: Ipratropium/Albuterol Neb 3 ML IH SCH ×2 (04:08→10:23)
[2016-06-23 05:31] LABS: Basophils % 0.1 %; Hematocrit 37.1 % (35.3-44.9); Hemoglobin 12.7 g/dL (11.5-15.4); Immature Granulocytes % 1.2 % (0-4); Immature Platelets 4.4 % (1.1-6.1); Lymphocytes # 0.8 K/mcL (0.6-4.6); Lymphocytes % 11.2 %; Mean Corpuscular HGB Conc 34.2 g/dL (31.6-35.5); Mean Corpuscular Hemoglobin 29.4 pg (28.0-33.3); Mean Corpuscular Volume 85.9 fL (83.0-100.0); Mean Platelet Volume 10.5 fL (9.4-12.4); Monocytes # 0.2 K/mcL (0.0-1.3); Monocytes % 3.3 %; Neutrophils # 6.2 K/mcL (1.6-8.9); Platelet Count 174 K/mcL (140-400); Red Blood Count 4.32 M/mcL (3.82-4.97); Red Cell Distribution Width 13.1 % (11.5-14.5); Segmented Neutrophils % 84.2 %
[2016-06-23 05:46] LABS: BUN/Creatinine Ratio 26 (6-26); Blood Urea Nitrogen 19 mg/dL (7-20); Calcium 8.4 mg/dL (8.6-10.8); Carbon Dioxide 20 mEq/L (19-29); Chloride 107 mEq/L (98-109); Glucose 134 mg/dL (70-99); Osmolality,Calculated 286 (280-300); Potassium 4.2 mEq/L (3.5-4.5); Sodium 136 mEq/L (136-145); eGFR For African Americans > 60 (> 60); eGFR For Non-African Americans > 60 (> 60)
[2016-06-23] MEDS: *HR* Enoxaparin 40 MG/0.4 ML SYRINGE SQ SCH (06:19)
[2016-06-23 07:07] VITALS: BP 149/75
--- NOTE | 2016-06-23 08:24 | Discharge Summary ---
<Dean Paulino - Last Filed: 06/23/16 12:22> Date of Encounter: 06/23/16 Time of Encounter: 08:19 - Discharge Diagnosis (1) Acute exacerbation of chronic obstructive airways disease Priority: Primary Status: Acute (2) History of pulmonary embolism Priority: Secondary Status: Acute (3) Diastolic CHF Priority: Secondary Status: Chronic Qualifiers: Qualified Code(s): I50.30 - Unspecified diastolic (congestive) heart failure (4) Hypertension Priority: Secondary Status: Chronic Qualifiers: Hypertension type: essential hypertension Qualified Code(s): I10 - Essential (primary) hypertension (5) Dementia Priority: Secondary Status: Chronic Qualifiers: Dementia type: unspecified type Dementia behavioral disturbance: without behavioral disturbance Qualified Code(s): F03.90 - Unspecified dementia without behavioral disturbance - Discharge Medications Prescriptions: Albuterol Neb [AccuNeb] 1.25 mg IH BID 30 Days Budesonide/Formoterol 160/4.5 [Symbicort] 1 puff IH BID 30 Days Guaifenesin [Mucinex] 1,200 mg PO BID #30 tab.er.12h Levofloxacin [Levaquin] 500 mg PO DAILY #3 tablet Nebulizer/Compressor [Portable Nebulizer System] 1 each MC BID #1 each PredniSONE 40 mg PO DAILY #5 tablet Home Medications: Albuterol Sulfate [Proair Hfa] 2 puff IH Q4H PRN 10/23/15 [History] Donepezil [Aricept] 5 mg PO HS 10/23/15 [History] Furosemide [Lasix] 40 mg PO DAILY PRN 10/23/15 [History] Metoprolol XL (24 HR) Succ [Toprol Xl] 12.5 mg PO DAILY #30 tab.er.24h 10/27/15 [Rx] Albuterol Neb [AccuNeb] 1.25 mg IH BID 30 Days 06/23/16 [Rx] Budesonide/Formoterol 160/4.5 [Symbicort] 1 puff IH BID 30 Days 06/23/16 [Rx] Guaifenesin [Mucinex] 1,200 mg PO BID #30 tab.er.12h 06/23/16 [Rx] Levofloxacin [Levaquin] 500 mg PO DAILY #3 tablet 06/23/16 [Rx] Nebulizer/Compressor [Portable Nebulizer System] 1 each MC BID #1 each 06/23/16 [Rx] PredniSONE 40 mg PO DAILY #5 tablet 06/23/16 [Rx] Allergies/Adverse Reactions: Allergies cefdinir [From Omnicef] Allergy (Verified 04/25/16 17:00) Hypertension Procedures/tests Complete & Pending: Procedures Performed prior 72 hours Category Date Time Status ECG 12 lead ECG [ECG] Routine Y 06/20/16 23:31 Completed Date of admission: 06/20/16 09:12 Primary care physician: Javad Ivey Discharging clinician: Francois Griggs Anticipated date of discharge: 06/23/16 - Patient Status Disposition: Home Health Service Condition: Fair Functional capacity at discharge: uses cane/walker Overall status at discharge: patient is progressing back to baseline - Discharge Instructions Instructions: Albuterol (By breathing), Guaifenesin (By mouth), Levofloxacin ( By mouth), Budesonide/Formoterol (By breathing), Heart Failure (DC), Urinary Tract Infection in Women (DC), Chronic Obstructive Pulmonary Disease (DC), Chronic Hypertension (DC) Follow Up With: Chrissy Maire DO [Primary Care Provider] - 06/30/16 9:30 am Additional Instructions: Please follow up with your PCP in 1 week - Diet and Activity Activity: increase activity as tolerated Diet: low fat, low cholesterol Hospital course: Ms. Salmeron is a 86 year old female presented on 06/19 with worsening shortness of breath over the past 2 days due to COPD exacerbation. Pt does have dementia and her daughter is at bedside and able to assist with history. She states her symptoms worsen with exertion and she has been having wheezing and a non- productive cough. She does have a history of COPD but does not have home oxygen and [place] nebulizer [place] state. /Of note, she has a history of pulmonary embolism last October, which was likely provoked due to immobility from a long car ride, and she was treated with 6 months of Xarelto until last April. She was started on Levaquin, steroids, and scheduled breathing treatments. She has been qualified for home O2 and PT/OT has recommended home health upon discharge. Today, she continues to breathe better and has no issues with any pain. She denies any nausea, vomiting, diarrhea, fever, or chills. She will be going home with Symbicort as she lacks any long acting inhalers at home. Also will prescribe her nebulizer and albuterol, as she left her machine at a friend's house out of state. Will give 5 days of steroids and 3 more days of PO Levaquin. - Time Spent with Patient Total time spent providing and/or coordinating discharge services: Greater than 30 minutes - Constitutional Vitals: Temp Pulse Resp BP Pulse Ox 97.9 F 79 16 149/75 94 L 06/23/16 07:04 06/23/16 07:04 06/23/16 07:04 06/23/16 07:04 06/23/16 07:04 General appearance: Present: cooperative, pleasant, no acute distress, answers questions appropriately - Head Head exam: Present: atraumatic, normocephalic - Eye Eye exam: Present: PERRL, conjuntiva pink, sclera anicteric - Neck Neck exam general surgery: Present: supple, trachea midline. Absent: lymphadenopathy - Respiratory Respiratory exam: Present: wheezes (faint). Absent: accessory muscle use, rales , rhonchi - Cardiovascular Cardiovascular exam: Present: RRR, +S1, +S2. Absent: diastolic murmur, gallop, rubs, systolic murmur - GI/Abdominal GI/Abdominal exam: Present: normal bowel sounds, soft, no peritoneal signs. Absent: distended, tenderness - Extremities Exam Extremities exam: Present: warm, radial pulses palpable and symetrical. Absent : calf tenderness, cyanotic, pedal edema - Neurological Exam Neurological exam: Present: alert, CN II-XII intact, no focal deficits. Absent : facial droop, speech deficit - Skin Skin exam: Present: dry, intact <Indu,Francois P - Last Filed: 06/23/16 18:23> Date of Encounter: 06/23/16 Procedures/tests Complete & Pending: Procedures Performed prior 72 hours Category Date Time Status ECG 12 lead ECG [ECG] Routine Y 06/20/16 23:31 Completed Date of admission: 06/20/16 09:12 Primary care physician: Javad Ivey Hospital course: Ms. Salmeron is a 86 year old female - Time Spent with Patient Total time spent providing and/or coordinating discharge services: - Constitutional Vitals: Temp Pulse Resp BP Pulse Ox 97.9 F 79 18 149/75 97 06/23/16 07:04 06/23/16 07:04 06/23/16 10:24 06/23/16 07:04 06/23/16 12:00 - Attending Attestation I examined this patient and my medical decision-making was reviewed with the SUPERVISOR COMMUNICATIONS AND SIGNALS/PA/Advanced Practice Nurse/Resident Physician. I agree with the documented findings, disposition and treatment plan as described except to the extent set forth below.
--- NOTE | 2016-06-23 08:29 | Physician Discharge Referral ---
<Dean Paulino - Last Filed: 06/23/16 12:23> Home Health/Hosp Referral Info Transfer to: Home Health Attending Provider: Francois Griggs MD Provider in Charge Post Discharge: PCP - Diagnosis (1) Acute exacerbation of chronic obstructive airways disease Priority: Primary Status: Acute (2) History of pulmonary embolism Priority: Secondary Status: Acute (3) Diastolic CHF Priority: Secondary Status: Chronic (4) Hypertension Priority: Secondary Status: Chronic (5) Dementia Priority: Secondary Status: Chronic - Respiratory Orders Smoking Cessation: Smoking cessation has been advised. For more information, call the [place] Tobacco Quit Line at 1-913-ABYI-NOW. - Diet/Nutrition Diet/Nutrition Orders: Cardiac - Activity Activity Orders: Walker - Services Needed Following services are medically necessary services: Nursing, Home Health Aide, Physical Therapy, Occupational Therapy - Transfer Medications Prescriptions: Albuterol Neb [AccuNeb] 1.25 mg IH BID 30 Days Budesonide/Formoterol 160/4.5 [Symbicort] 1 puff IH BID 30 Days Guaifenesin [Mucinex] 1,200 mg PO BID #30 tab.er.12h Levofloxacin [Levaquin] 500 mg PO DAILY #3 tablet Nebulizer/Compressor [Portable Nebulizer System] 1 each MC BID #1 each PredniSONE 40 mg PO DAILY #5 tablet Home Medications: Albuterol Sulfate [Proair Hfa] 2 puff IH Q4H PRN 10/23/15 [History] Donepezil [Aricept] 5 mg PO HS 10/23/15 [History] Furosemide [Lasix] 40 mg PO DAILY PRN 10/23/15 [History] Metoprolol XL (24 HR) Succ [Toprol Xl] 12.5 mg PO DAILY #30 tab.er.24h 10/27/15 [Rx] Albuterol Neb [AccuNeb] 1.25 mg IH BID 30 Days 06/23/16 [Rx] Budesonide/Formoterol 160/4.5 [Symbicort] 1 puff IH BID 30 Days 06/23/16 [Rx] Guaifenesin [Mucinex] 1,200 mg PO BID #30 tab.er.12h 06/23/16 [Rx] Levofloxacin [Levaquin] 500 mg PO DAILY #3 tablet 06/23/16 [Rx] Nebulizer/Compressor [Portable Nebulizer System] 1 each MC BID #1 each 06/23/16 [Rx] PredniSONE 40 mg PO DAILY #5 tablet 06/23/16 [Rx] Allergies/Adverse Reactions: Allergies cefdinir [From Omnicef] Allergy (Verified 04/25/16 17:00) Hypertension Certification: Further, I certify that my clinical findings support that this patient is homebound (i.e. absences from home require considerable and taxing effort and are for medical reasons or rastafarian services or infrequently or short duration when for other reasons) because: Homebound Reason: Patient requires assistance of a person or device to safely leave home Attestation: My signature below is to certify that this patient is under my care and that I, or nurse practitioner, or a physician's assistant professor of philosophy working with me, has a face-to -face encounter with this patient. <Francois Griggs P - Last Filed: 06/23/16 18:23> - Respiratory Orders Smoking Cessation: Smoking cessation has been advised. For more information, call the [place] Tobacco Quit Line at 9-345-AIBP-NOW. Certification: Further, I certify that my clinical findings support that this patient is homebound (i.e. absences from home require considerable and taxing effort and are for medical reasons or rastafarian services or infrequently or short duration when for other reasons) because: Attestation: My signature below is to certify that this patient is under my care and that I, or nurse practitioner, or a physician's assistant professor of philosophy working with me, has a face-to -face encounter with this patient.
[2016-06-23] MEDS: Budesonide/Formoterol 80/4.5 MDI IH SCH (10:23)
[2016-06-23] MEDS: predniSONE 20 MG TABLET PO SCH (11:02)
[2016-06-23] MEDS: Levofloxacin 500 MG/100 ML 500 MG/100 ML BAG IVPB SCH (11:04)
== END 2016-06-23 13:10 | disposition home health service (06) | DRG 191 ==
LOC: EMEROO 10:10 → 2NENU 10:10
PROVIDERS: ADMIT Internal Medicine; ATTEND Internal Medicine

== ENCOUNTER 2016-08-30 08:54 | Observation (INO) ==
[2016-08-30] MEDS ORDERED: Ondansetron 4 MG/2 ML VIAL IVP ONE (09:21)
[2016-08-30 09:35] LABS: Basophils % 0.3 %; Eosinophils # 0.1 K/mcL (0.0-0.6); Eosinophils % 0.9 %; Hematocrit 42.6 % (35.3-44.9); Hemoglobin 14.3 g/dL (11.5-15.4); Immature Granulocytes % 1.3 % (0-4); Lymphocytes # 1.8 K/mcL (0.6-4.6); Lymphocytes % 12.8 %; Mean Corpuscular HGB Conc 33.6 g/dL (31.6-35.5); Mean Corpuscular Hemoglobin 29.1 pg (28.0-33.3); Mean Corpuscular Volume 86.8 fL (83.0-100.0); Mean Platelet Volume 9.8 fL (9.4-12.4); Monocytes # 1.3 K/mcL (0.0-1.3); Monocytes % 9.5 %; Neutrophils # 10.4 K/mcL (1.6-8.9); Platelet Count 141 K/mcL (140-400); Red Blood Count 4.91 M/mcL (3.82-4.97); Red Cell Distribution Width 13.6 % (11.5-14.5); Segmented Neutrophils % 75.2 %
--- NOTE | 2016-08-30 09:39 | Emergency Department Note ---
Disposition Clinical Impression: Biliary colic, Hyperbilirubinemia Leukocytosis Qualifiers: Leukocytosis type: unspecified Qualified Code(s): D72.829 - Elevated white blood cell count, unspecified Cholelithiasis Qualifiers: Cholelithiasis location: other site Biliary obstruction: with biliary obstruction Qualified Code(s): K80.81 - Other cholelithiasis with obstruction Abdominal pain Qualifiers: Abdominal location: right upper quadrant Qualified Code(s): R10.11 - Right upper quadrant pain Disposition: Admitted As Inpatient Condition: Fair Referrals: Chrissy Marie DO [Primary Care Provider] - Time of Disposition: 11:31 Abdominal Pain HPI - General Chief Complaint: ED Abdominal Pain Stated Complaint: R flank pain Time Seen by Provider: 08/30/16 09:11 Source: patient, EMS Mode of arrival: EMS Limitations: no limitations Nursing Notes Reviewed: Yes Vital Signs Reviewed: Yes - History of Present Illness HPI Narrative: 86-year-old female with acute onset right upper quadrant pain starting this morning at rest. Patient has some dementia but is a fairly good historian, other history is obtained from her daughter who is at bedside. Patient states that she has as bad as 10 out of 10 pain, currently has 6 out of 10, crampy right upper quadrant, radiating from her right upper quadrant to right flank. Denies dysuria or hematuria. Weight loss chills. Pain is worse after meals and patient does not have an appetite. Patient denies any chest pain, no history of NC, no history of cholecystectomy or appendectomy. No hx Renal stones Pt Subjective Complaint: abdominal pain Consistency: intermittent Location: RUQ Pain Severity: moderate Pain Scale: 3 Radiation: R flank Improves with: nothing Worsens with: eating Associated symptoms: Reports: nausea. Denies: vomiting, diarrhea, fever, chills , constipation, dysuria, hematemesis, hematochezia - Related Data Home Medications Medication Instructions Recorded Confirmed Albuterol Sulfate [Proair Hfa] 2 puff IH Q4H PRN 10/23/15 08/30/16 Donepezil [Aricept] 5 mg PO DAILY 10/23/15 08/30/16 Furosemide [Lasix] 40 mg PO DAILY PRN 10/23/15 08/30/16 Albuterol Neb [AccuNeb] 1.25 mg IH Q12H 07/21/16 08/30/16 Previous Rx's Medication Instructions Recorded Metoprolol XL (24 HR) Succ [Toprol 12.5 mg PO DAILY #30 tab.er.24h 10/27/15 Xl] Budesonide/Formoterol 160/4.5 1 puff IH BID 30 Days 06/23/16 [Symbicort 160/4.5] Allergies Allergy/AdvReac Type Severity Reaction Status Date / Time cefdinir [From Omnicef] Allergy Hypertensio Verified 04/25/16 17:00 n All systems ED: reviewed and negative except as stated. Constitutional: Reports: as per HPI, weakness. Denies: fever, chills Cardiovascular: Reports: as per HPI. Denies: chest pain, palpitations, dyspnea on exertion Respiratory: Reports: as per HPI, cough. Denies: dyspnea, wheezes Gastrointestinal: Reports: as per HPI, abdominal pain, nausea. Denies: vomiting , diarrhea, hematemesis, melena Genitourinary: Denies: urgency, dysuria, frequency Musculoskeletal: Reports: as per HPI, back pain Neurological: Reports: as per HPI, weakness, confusion (baseline dementia). Denies: headache, numbness, abnormal gait Abdominal Pain PMH - Past Medical History Medical history: Reports: asthma, dementia, hypertension, pulmonary embolus, SVT , other Female Surgical History: Reports: hysterectomy Psychiatric history: Reports: anxiety - Social History Smoking status: Never smoker Alcohol use: Reports: none Drug use: Reports: none Physical Exam Constitutional: Elderly female, appears in no acute distress, mildly uncomfortable, vitals signs reviewed and were normal limits HEENT: NCAT, sclera anicteric, PERRLA bilaterally, normal external ears bilaterally, nasal septum nondeviated, average dentition, mucous membranes dry Neck: normal inspection, neck is supple, trachea midline Resp: normal chest inspection, CTA bilaterally, no resp distress CV: RRR, no m/g/r GI: Moderate right upper quadrant tenderness to palpation epigastrium tenderness to palpation with positive Tucker sign. Otherwise abdomen is soft, normoactive bowel sounds. Positive right CVA tenderness. Back: normal inspection, no tenderness to palpation Neuro: A&O3, no gross motor or sensory deficits bilaterally Skin: Poor skin turgor. - General Limitations: no limitations General appearance: alert, in no apparent distress Course Course Narrative: 86-year-old female with concerns for hepatobiliary etiology of her symptoms in the right upper quadrant tenderness with Tucker sign, I did want to check a gallbladder ultrasound this was ordered along with initial nursing abdominal labs and do agree with lipase, CBC BMP urinalysis and also order her antiemetics and IV fluids. Reassessed - Reevaluation(s) Reevaluation #1: Admitted to Dr Ruiz for Cholelithiassis biliary colic, for surgical eval. Time: 11:30 - Consultations Consultation #1: I spoke with Dr. Garner given leukocytosis positive Tucker sign and evidence of gallstones on ultrasound, she agrees with admission, given age and comorbids she will eval to disucss with patient possible op management, we will keep the patient nothing by mouth at this time admission to the hospitalist service, no recommendation for empiric abx. Consult placed in ED> Vital Signs Temperature 98.3 F 08/30/16 08:56 Pulse Rate 64 08/30/16 08:56 Respiratory Rate 16 08/30/16 08:56 Blood Pressure 138/69 08/30/16 08:56 O2 Sat by Pulse Oximetry 95 08/30/16 08:56 Temperature 98.3 F 08/30/16 08:56 Pulse Rate 64 08/30/16 10:34 Respiratory Rate 18 08/30/16 10:34 Blood Pressure 151/69 08/30/16 10:34 O2 Sat by Pulse Oximetry 94 L 08/30/16 10:34 Oxygen Delivery Oxygen Delivery Room Air Abdominal Pain - MDM Narrative Medical decision making narrative: 86-year-old female with leukocytosis, right upper quadrant pain, biliary colic, hyperbilirubinemia, admitted to medicine service with surgical evaluation in stable condition nothing by mouth - Differential Diagnosis Differential Diagnosis: Likely: abdominal pain non-specific, acute appendicitis , colonic obstruction, diverticulitis, diverticulosis - Medical Records Medical records reviewed: Yes I reviewed the patient's medical records. - Lab Data Lab results reviewed: Yes I reviewed the patient's lab results. Result diagrams: 08/30/16 09:29 08/30/16 09:29 Lab Results 08/30/16 08/30/16 08/30/16 Range/Units 09:25 09:29 09:29 WBC 13.8 H (4.3-11.1) K/mcL RBC 4.91 (3.82-4.97) M/mcL Hgb 14.3 (11.5-15.4) g/dL Hct 42.6 (35.3-44.9) % MCV 86.8 (83.0-100.0) fL MCH 29.1 (28.0-33.3) pg MCHC 33.6 (31.6-35.5) g/dL RDW 13.6 (11.5-14.5) % Plt Count 141 (140-400) K/mcL MPV 9.8 (9.4-12.4) fL Immature Gran % 1.3 (0-4) % Seg Neutrophils % 75.2 % Lymphocytes % 12.8 % Monocytes % 9.5 % Eosinophils % 0.9 % Basophils % 0.3 % Neutrophils # 10.4 H (1.6-8.9) K/mcL Lymphocytes # 1.8 (0.6-4.6) K/mcL Monocytes # 1.3 (0.0-1.3) K/mcL Eosinophils # 0.1 (0.0-0.6) K/mcL Basophils # 0.0 (0.0-0.2) K/mcL PT 13.6 H (9.4-12.1) Seconds INR 1.3 APTT 26.0 (26.0-36.0) Seconds Sodium 134 L (136-145) mEq/L Potassium 4.1 (3.5-4.5) mEq/L Chloride 103 (98-109) mEq/L Carbon Dioxide 24 (19-29) mEq/L BUN 18 (7-20) mg/dL Creatinine 0.76 (0.57-1.11) mg/dL Est GFR ( Amer) > 60 (> 60) Est GFR (Non-Af Amer) > 60 (> 60) BUN/Creatinine Ratio 24 (6-26) Glucose 76 (70-99) mg/dL Calculated Osmolality 279 L (280-300) Calcium 7.9 L (8.6-10.8) mg/dL Total Bilirubin 1.6 H (0.2-1.2) mg/dL Direct Bilirubin 0.5 (0.0-0.5) mg/dL Indirect Bilirubin 1.1 (0.0-1.2) mg/dL AST 17 (5-34) Units/L ALT 14 (0-55) Units/L Alkaline Phosphatase 57 (38-126) Units/L Troponin I (0-0.03) ng/mL Serum Total Protein 5.2 L (6.0-8.3) g/dL Albumin 2.9 L (3.5-5.0) g/dL Globulin 2.3 L (2.4-3.5) g/dL Albumin/Globulin Ratio 1.3 (1.1-2.2) Lipase 66 (8-78) Units/L Urine Color (Yellow) Urine Clarity (Clear) Urine pH (5.0-8.0) pH Units Ur Specific [place] (1.010-1.025) Urine Protein (Neg-Trace) mg/dL Urine Glucose (UA) (Normal) mg/dL Urine Ketones (Negative) mg/dL Urine Blood (Negative) Urine Nitrite (Negative) Urine Bilirubin (Negative) Urine Urobilinogen (Normal) mg/dL Ur Leukocyte Esterase (Negative) Urine Microscopic RBC (0-3) per hpf Urine Microscopic WBC (0-3) per hpf Ur Squamous Epith Cells (None-Few) per lpf Urine Bacteria (None-Few) per hpf Hyaline Casts (None-Few) per lpf Ur Culture Indicated? (NO) 08/30/16 08/30/16 Range/Units 09:29 09:40 WBC (4.3-11.1) K/mcL RBC (3.82-4.97) M/mcL Hgb (11.5-15.4) g/dL Hct (35.3-44.9) % MCV (83.0-100.0) fL MCH (28.0-33.3) pg MCHC (31.6-35.5) g/dL RDW (11.5-14.5) % Plt Count (140-400) K/mcL MPV (9.4-12.4) fL Immature Gran % (0-4) % Seg Neutrophils % % Lymphocytes % % Monocytes % % Eosinophils % % Basophils % % Neutrophils # (1.6-8.9) K/mcL Lymphocytes # (0.6-4.6) K/mcL Monocytes # (0.0-1.3) K/mcL Eosinophils # (0.0-0.6) K/mcL Basophils # (0.0-0.2) K/mcL PT (9.4-12.1) Seconds INR APTT (26.0-36.0) Seconds Sodium (136-145) mEq/L Potassium (3.5-4.5) mEq/L Chloride (98-109) mEq/L Carbon Dioxide (19-29) mEq/L BUN (7-20) mg/dL Creatinine (0.57-1.11) mg/dL Est GFR ( Amer) (> 60) Est GFR (Non-Af Amer) (> 60) BUN/Creatinine Ratio (6-26) Glucose (70-99) mg/dL Calculated Osmolality (280-300) Calcium (8.6-10.8) mg/dL Total Bilirubin (0.2-1.2) mg/dL Direct Bilirubin (0.0-0.5) mg/dL Indirect Bilirubin (0.0-1.2) mg/dL AST (5-34) Units/L ALT (0-55) Units/L Alkaline Phosphatase (38-126) Units/L Troponin I 0.02 (0-0.03) ng/mL Serum Total Protein (6.0-8.3) g/dL Albumin (3.5-5.0) g/dL Globulin (2.4-3.5) g/dL Albumin/Globulin Ratio (1.1-2.2) Lipase (8-78) Units/L Urine Color Yellow (Yellow) Urine Clarity Clear (Clear) Urine pH 7.5 (5.0-8.0) pH Units Ur Specific [place] 1.021 (1.010-1.025) Urine Protein Negative (Neg-Trace) mg/dL Urine Glucose (UA) Normal (Normal) mg/dL Urine Ketones Negative (Negative) mg/dL Urine Blood Negative (Negative) Urine Nitrite Negative (Negative) Urine Bilirubin Negative (Negative) Urine Urobilinogen 2.0 H (Normal) mg/dL Ur Leukocyte Esterase Small H (Negative) Urine Microscopic RBC 0-3 (0-3) per hpf Urine Microscopic WBC 5-15 H (0-3) per hpf Ur Squamous Epith Cells Many H (None-Few) per lpf Urine Bacteria None Seen (None-Few) per hpf Hyaline Casts None Seen (None-Few) per lpf Ur Culture Indicated? YES A (NO) - Radiology Data Radiology results reviewed: Yes I reviewed the patient's radiology results. - EKG Data EKG attestation: Yes I reviewed and interpreted this EKG. EKG shows normal: sinus rhythm Rate: normal (60 bpm SC 161 QRS 89 QTc 383) Stephen/QRS: normal Interpretation: no acute changes - Core Measures AMI Core Measures Followed: No Measure Exclusions: not indicated Attestation Statement - Attestation Attestation: I examined this patient and my medical decision-making was reviewed with the BARMAID/PA/Advanced Practice Nurse/Resident Physician. I agree with the documented findings, disposition and treatment plan as described except to the extent set forth below. Patient to emergency Department with a chief complaint of right-sided abdominal pain. Woke up this morning. Still has her gallbladder. On exam he has right upper quadrant tenderness and guarding. Plan. Labs and ultrasound gallbladder. Leukocytosis. Ultrasound pending. Hemodynamically stable at this time. Ultrasound shows gallstones. She does have a positive sign and a white count. She was discussed with surgery. Admitted to hospitalist with surgical consult.
[2016-08-30 09:50] LABS: Alanine Aminotransferase 14 Units/L (0-55); Albumin 2.9 g/dL (3.5-5.0); Albumin/Globulin Ratio 1.3 (1.1-2.2); Alkaline Phosphatase 57 Units/L (38-126); Aspartate Amino Transferase 17 Units/L (5-34); BUN/Creatinine Ratio 24 (6-26); Bilirubin,Direct 0.5 mg/dL (0.0-0.5); Bilirubin,Indirect 1.1 mg/dL (0.0-1.2); Bilirubin,Total 1.6 mg/dL (0.2-1.2); Blood Urea Nitrogen 18 mg/dL (7-20); Calcium 7.9 mg/dL (8.6-10.8); Carbon Dioxide 24 mEq/L (19-29); Chloride 103 mEq/L (98-109); Globulin 2.3 g/dL (2.4-3.5); Glucose 76 mg/dL (70-99); Lipase 66 Units/L (8-78); Osmolality,Calculated 279 (280-300); Potassium 4.1 mEq/L (3.5-4.5); Sodium 134 mEq/L (136-145); Total Protein 5.2 g/dL (6.0-8.3); eGFR For African Americans > 60 (> 60); eGFR For Non-African Americans > 60 (> 60)
[2016-08-30 09:52] LABS: Bilirubin,Urine Negative (Negative); Blood,Urine Negative (Negative); Clarity,Urine Clear (Clear); Color,Urine Yellow (Yellow); Glucose,Urine (UA) Normal (Normal); Ketones,Urine Negative (Negative); Leukocyte Esterase,Urine Small (Negative); Nitrite,Urine Negative (Negative); PH,Urine 7.5 pH Units (5.0-8.0); Protein,Urine Negative (Neg-Trace); Specific Gravity,Urine 1.021 (1.010-1.025)
[2016-08-30 09:55] LABS: Bacteria,Urine None Seen per hpf (None-Few); Hyaline Casts,Urine None Seen per lpf (None-Few); RBC,Urine 0-3 per hpf (0-3); Squamous Epithelial Cell,Urine Many per lpf (None-Few)
[2016-08-30] MEDS ORDERED: 0.9 % Sodium Chloride 1,000 ML IV ONE (10:17)
[2016-08-30 10:28] LABS: INR 1.3; Prothrombin Time 13.6 Seconds (9.4-12.1)
[2016-08-30] MEDS ORDERED: Ondansetron 4 MG/2 ML VIAL IVP PRN (11:07)
[2016-08-30] MEDS ORDERED: Naloxone 0.4 MG/ML INJ IVP PRN (11:07)
[2016-08-30] MEDS ORDERED: *HR* Morphine 2 MG/ML SYRINGE IVP PRN (11:07)
--- NOTE | 2016-08-30 12:26 | General Surgery Consult Note ---
<Salvador Arshad - Last Filed: 08/30/16 19:00> Date of Encounter: 08/30/16 Time of Encounter: 12:24 Assessment and Plan (1) Abdominal pain Current Visit: Yes Status: Acute Pt. with acute onset RUQ pain. She is also having suprapubic tenderness. Gallbladder u/s: revealed gallstones. common bile duct is 2mm (wnl) mild RUQ tenderness on exam. negative murphys sign. no guarding, no rebound. no nausea/vomiting, afebrile, no tachycardia mild leukocytosis, wbc: 13.8 total bili: 1.6, albumin 2.9, Otherwise hepatic panel wnl. Unclear etiology for abdominal pain. Will obtain CT abd/pel to r/o acute process. 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 (3) Hypertension Current Visit: Yes Status: Chronic Qualifiers: Hypertension type: essential hypertension Qualified Code(s): I10 - Essential (primary) hypertension (4) Dementia Current Visit: No Status: Chronic Qualifiers: Dementia type: unspecified type Dementia behavioral disturbance: without behavioral disturbance Qualified Code(s): F03.90 - Unspecified dementia without behavioral disturbance (5) DVT prophylaxis Current Visit: No Status: Acute History of Present Illness Consult date: 08/30/16 Reason for consult: gallstones Requesting physician: Tohmas Arrington History of present illness: Ms. Negron is a pleasant 86-year-old female with acute onset right upper quadrant pain starting this morning at rest. She has a history significant for PE (not currently anticoagulated), HTN, obstructive lung disease, Afib s/p ablation. This history was taken mainly from the patient family in the room as the patient has mild dementia. This morning she had acute onset RUQ pain which was rated as 10/10, and she was unable to move d/t the pain. The pain did not radiate and is intermittent in nature. She has not had any nausea or vomiting. She states she currently does have an appetite. She has no dysuria. She is having flatus and recent bm. She was just treated for bronchitis outpatient and finished a 5 day course of Levaquin and prednisone. She had her Afib ablation done on 08/10/16. She reports abdominal pain (RUQ), fatigue and diaphoresis. She denies fever, n/ v/d, sob, cp, tachycardia, melena, hematochezia, or hemoptysis. Past Med Surg Social Fam HX - Past Medical History Medical history: asthma, dementia, hypertension, pulmonary embolus, SVT, other Psychiatric history: anxiety - Past Surgical History Surgical History: hysterectomy - Social History Smoking Status: Never smoker Smokeless Tobacco Status: No Alcohol use: none Drug use: none - Family History Father Living Status: Hx Family Cardiac Disorders: Yes (OR) Medications and Allergies Albuterol Sulfate [Proair Hfa] 2 puff IH Q4H PRN 10/23/15 [History] Donepezil [Aricept] 5 mg PO DAILY 10/23/15 [History] Furosemide [Lasix] 40 mg PO DAILY PRN 10/23/15 [History] Metoprolol XL (24 HR) Succ [Toprol Xl] 12.5 mg PO DAILY #30 tab.er.24h 10/27/15 [Rx] Budesonide/Formoterol 160/4.5 [Symbicort 160/4.5] 1 puff IH BID 30 Days [Rx] Albuterol Neb [AccuNeb] 1.25 mg IH Q12H 07/21/16 [History] Allergies cefdinir [From Omnicef] Allergy (Verified 04/25/16 17:00) Hypertension Review of Systems All systems PM: reviewed and no additional remarkable complaints except as stated All systems PM: A 10-system review of systems was performed and is negative for pertinent findings except as documented above in the HPI. - Constitutional fatigue - EENT Nose, mouth and throat: dry mouth - Cardiovascular no chest pain, no dyspnea, no rapid heart rate - Respiratory no cough, no hemoptysis, no dyspnea on exertion - Gastrointestinal abdominal pain, cramping, no coffee ground emesis, no constipation, no diarrhea , no melena, no nausea, no vomiting - Neurological confusion (baseline dementia), no syncope General Surgery Exam Initial Vital Signs Temp Pulse Resp BP Pulse Ox 98.3 F 64 16 138/69 95 08/30/16 08:56 08/30/16 08:56 08/30/16 08:56 08/30/16 08:56 08/30/16 08:56 - General physical appearance well developed, no distress - Neck trachea midline - Respiratory clear to auscultation - Cardiovascular Cardiovascular exam: Present: RRR - Abdomen Abdomen general surgery: Present: bowel sounds present, soft, tender. Absent: guarding, rebound, rigid Abdominal Tenderness: Present: RUQ - Neurologic Present: CN 2-12 grossly intact - Psychiatric Psychiatric general surgery: Present: A&Ox3 Exam Initial Vital Signs Temp Pulse Resp BP Pulse Ox 98.3 F 64 16 138/69 95 08/30/16 08:56 08/30/16 08:56 08/30/16 08:56 08/30/16 08:56 08/30/16 08:56 Results - Labs 08/30/16 09:29 08/30/16 09:29 Abnormal lab results WBC 13.8 K/mcL (4.3-11.1) H 08/30/16 09:29 Neutrophils # 10.4 K/mcL (1.6-8.9) H 08/30/16 09:29 PT 13.6 Seconds (9.4-12.1) H 08/30/16 09:25 Sodium 134 mEq/L (136-145) L 08/30/16 09:29 Calculated Osmolality 279 (280-300) L 08/30/16 09:29 Calcium 7.9 mg/dL (8.6-10.8) L 08/30/16 09:29 Total Bilirubin 1.6 mg/dL (0.2-1.2) H 08/30/16 09:29 Serum Total Protein 5.2 g/dL (6.0-8.3) L 08/30/16 09:29 Albumin 2.9 g/dL (3.5-5.0) L 08/30/16 09:29 Globulin 2.3 g/dL (2.4-3.5) L 08/30/16 09:29 Urine Urobilinogen 2.0 mg/dL (Normal) H 08/30/16 09:40 Ur Leukocyte Esterase Small (Negative) H 08/30/16 09:40 Urine Microscopic WBC 5-15 per hpf (0-3) H 08/30/16 09:40 Ur Squamous Epith Cells Many per lpf (None-Few) H 08/30/16 09:40 Ur Culture Indicated? YES (NO) A 08/30/16 09:40 All other labs normal. Consult Discharge Plan - Plan Referrals: Chrissy Marie, [Primary Care Provider] - <María Garner - Last Filed: 08/30/16 19:36> Assessment and Plan (1) Lower abdominal pain Current Visit: Yes Status: Acute patients complaints of pain and tenderness are bilateral lower abdominal without rebound or guarding, her pain is mild. Given her urinalysis I question if she has a uti, await culture. Cannot rule out diverticulitis or appendicits. Will ct abdomen and pelvis with po and iv contrast, discussed with patient and family She has no RUQ pain and although her US showed cholelithiasis I do not think it is a gallbladder problem (2) Hypertension Current Visit: Yes Status: Chronic Qualifiers: Hypertension type: essential hypertension Qualified Code(s): I10 - Essential (primary) hypertension (3) Cholelithiasis Current Visit: Yes Status: Acute patient US gallbladder showed cholelithiasis with normal cbd, no pericholecystic fluid, no gb wall thickening, she is not tender in RUQ, no nausea or diarrhea I do not feel it is a gallbladder issue at this time her elevated T bilirubin in 1/10th point above normal Qualifiers: Cholelithiasis location: gallbladder Cholecystitis presence: without cholecystitis Biliary obstruction: without biliary obstruction Qualified Code(s): K80.20 - Calculus of gallbladder without cholecystitis without obstruction (4) Leukocytosis Current Visit: Yes Status: Acute she has recently been on steroids, will trend afebrile, no bandemia Qualifiers: Leukocytosis type: unspecified Qualified Code(s): D72.829 - Elevated white blood cell count, unspecified History of Present Illness History of present illness: Information gathered from patient and family present in room. She had right sided abdominal pain this am. Denies nausea or emesis. No diarrhea. Unable to say if has dysuria. In the room she states her pain is bilateral lower abdomen. She is crying and tearful in the room and cannot state why. She was recently treated from a pneumonia with antibiotics and steroids, 20 mg po x 10 days. Past Med Surg Social Fam HX - Past Medical History Source: patient, obtained from family Medical history: DVT Review of Systems All systems PM: A 10-system review of systems was performed and is negative for pertinent findings except as documented above in the HPI. General Surgery Exam Initial Vital Signs Temp Pulse Resp BP Pulse Ox 98.3 F 64 16 138/69 95 08/30/16 08:56 08/30/16 08:56 08/30/16 08:56 08/30/16 08:56 08/30/16 08:56 - General physical appearance well nourished, no distress, no pain - Eyes PERRL, normal ocular movement - ENT normal mucosa, normocephalic - Neck trachea midline - Respiratory normal respiratory effort - Cardiovascular Cardiovascular exam: Present: RRR - Abdomen Abdomen general surgery: Present: soft, tender (mildly). Absent: guarding, rebound, rigid Abdominal Tenderness: Present: RLQ, LLQ. Absent: RUQ, LUQ - Integumentary Integumentary general surgery: Present: no abnormal pigmentation - Neurologic Present: CN 2-12 grossly intact - Musculoskeletal Present: normal posture - Psychiatric Psychiatric general surgery: Present: oriented to person, tearful Exam Initial Vital Signs Temp Pulse Resp BP Pulse Ox 98.3 F 64 16 138/69 95 08/30/16 08:56 08/30/16 08:56 08/30/16 08:56 08/30/16 08:56 08/30/16 08:56 Results - Labs 08/30/16 09:29 08/30/16 09:29 Abnormal lab results WBC 13.8 K/mcL (4.3-11.1) H 08/30/16 09:29 Neutrophils # 10.4 K/mcL (1.6-8.9) H 08/30/16 09:29 PT 13.6 Seconds (9.4-12.1) H 08/30/16 09:25 Sodium 134 mEq/L (136-145) L 08/30/16 09:29 Calculated Osmolality 279 (280-300) L 08/30/16 09:29 Calcium 7.9 mg/dL (8.6-10.8) L 08/30/16 09:29 Total Bilirubin 1.6 mg/dL (0.2-1.2) H 08/30/16 09:29 Serum Total Protein 5.2 g/dL (6.0-8.3) L 08/30/16 09:29 Albumin 2.9 g/dL (3.5-5.0) L 08/30/16 09:29 Globulin 2.3 g/dL (2.4-3.5) L 08/30/16 09:29 Urine Urobilinogen 2.0 mg/dL (Normal) H 08/30/16 09:40 Ur Leukocyte Esterase Small (Negative) H 08/30/16 09:40 Urine Microscopic WBC 5-15 per hpf (0-3) H 08/30/16 09:40 Ur Squamous Epith Cells Many per lpf (None-Few) H 08/30/16 09:40 Ur Culture Indicated? YES (NO) A 08/30/16 09:40 All other labs normal. - Imaging US - abdomen: report reviewed - Attending Attestation I examined this patient and my medical decision-making was reviewed with the TECHNICAL SPECIALIST/PA/Advanced Practice Nurse/Resident Physician. I agree with the documented findings, disposition and treatment plan as described except to the extent set forth below.
--- NOTE | 2016-08-30 13:30 | Internal Med History&Physical ---
Date of Encounter: 08/30/16 Time of Encounter: 13:15 Assessment and Plan (1) Abdominal pain Current visit: Yes Status: Acute Acute intractable right upper quadrant pain. Likely from biliary colic and cholelithiasis. Will keep nothing by mouth. Treat underlying pain. IV hydration. Antiemetics for nausea. Consult surgery for further recommendations. Observation in the hospital for now Qualifiers: Abdominal location: right upper quadrant Qualified Code(s): R10.11 - Right upper quadrant pain (2) Bilateral lower extremity pain Current visit: Yes Status: Acute Bilateral lower extremity pain. Will get venous Doppler given her history of PE. (3) Biliary colic Current visit: Yes Status: Acute Will treat with keeping the patient nothing by mouth and with IV hydration, IV pain medications. Consult surgery. (4) Cholelithiasis Current visit: Yes Status: Acute Patient with cholelithiasis. She does have positive Tucker's sign and leukocytosis. Her liver enzymes are not elevated. Patient does have a slight increase in bilirubin. Treat empirically as above. If patient develops fever will start antibiotics. Qualifiers: Cholelithiasis location: gallbladder Cholecystitis presence: without cholecystitis Biliary obstruction: without biliary obstruction Qualified Code(s): K80.20 - Calculus of gallbladder without cholecystitis without obstruction (5) History of pulmonary embolism Current visit: No Status: Chronic Not on any anticoagulation currently. We will use O2 supplementation if needed (6) Hypertension Current visit: Yes Status: Chronic Monitor blood pressure. Currently elevated due to pain. Resume home medications. Qualifiers: Hypertension type: essential hypertension Qualified Code(s): I10 - Essential (primary) hypertension Internal Medicine - H&P: HPI Chief complaint: Right upper quadrant abdominal pain Admitted From: Emergency Dept Plans for Post Hospital Care: Home History of present illness: Ms. Salmeron is a 86 year old female history of dementia, essential hypertension , pulmonary embolism, atrial fibrillation status post ablation presented to the ER with complaints of severe right upper quadrant pain. It was 10 out of 10 in severity on presentation without any radiation or relation to diet. Patient was severely disabled from the pain. She was brought into the ER and was given pain medications with improvement in her pain. She still gets the pain when she ambulates or sits up. She did not have any nausea or vomiting. No diarrhea or constipation. She has not had similar kind of pain before. She underwent radiofrequency ablation for atrial fibrillation last month. She was treated for bronchitis with prednisone and Levaquin recently. She denies any fever or chills or night sweats. No dysuria or hematuria. No Cough or shortness of breath at this time. Patient had a PE last year and was treated with Coumadin for that. She is not on Coumadin or any anticoagulation at this time. Given the patient's dementia, also the history has been obtained through her daughters who were present at bedside. Past Med Surg Social Fam HX - Past Medical History Source: old records reviewed, obtained from family Medical history: asthma, atrial fibrillation, dementia, hypertension, pulmonary embolus, SVT, other Psychiatric history: anxiety - Past Surgical History Surgical History: hysterectomy - Social History Smoking Status: Never smoker Smokeless Tobacco Status: No Alcohol use: none Drug use: none - Family History Father Living Status: Age at : 69 Cause of : Heart attack Hx Family Cardiac Disorders: Yes Hx Family Respiratory Disorders: No Hx Family Cancer: Yes (Melenoma) Hx Family GI Disorders: No Hx Family Genitourinary Disorders: No Hx Family Endocrine Disorder: No Hx Family Musculoskeletal Disorders: No Hx Family Neuromuscular Disorders: No Hx Family Neurologic Disorders: No Hx Family HEENT Disorders: No Hx Family Autoimmune Disorders: No Hx Family Reproductive Disorders: No Hx Family Psychosocial Disorders: No Hx Family Medical Disorders: No - Additional Family History Additional family history: Reviewed and found to be noncontributory at this time Internal Medicine - H&P: Meds Albuterol Sulfate [Proair Hfa] 2 puff IH Q4H PRN 10/23/15 [History] Donepezil [Aricept] 5 mg PO DAILY 10/23/15 [History] Furosemide [Lasix] 40 mg PO DAILY PRN 10/23/15 [History] Metoprolol XL (24 HR) Succ [Toprol Xl] 12.5 mg PO DAILY #30 tab.er.24h 10/27/15 [Rx] Budesonide/Formoterol 160/4.5 [Symbicort 160/4.5] 1 puff IH BID 30 Days [Rx] Albuterol Neb [AccuNeb] 1.25 mg IH Q12H 07/21/16 [History] Allergies cefdinir [From Omnicef] Allergy (Verified 04/25/16 17:00) Hypertension All Systems PM: A 10-system review of systems was performed and is negative for pertinent findings except as documented above in the HPI. - Constitutional Constitutional: no chills, no fever(s), no night sweats - EENT Eyes: no change in vision, no discharge, no pain, no photophobia Ears: no ear discharge, no ear pain, no tinnitus Nose, mouth and throat: no dysphagia, no nasal discharge, no neck pain, no sore throat - Cardiovascular Cardiovascular ROS IM: no chest pain, no diaphoresis, no dyspnea, no lightheadedness, no palpitations, no syncope - Respiratory Respiratory: no cough, no dyspnea, no wheezing, no excessive phlegm production - Gastrointestinal Gastrointestinal: abdominal pain, no diarrhea, no hematemesis, no hematochezia, no melena, no nausea, no vomiting - Constitutional Vitals: Temp Pulse Resp BP Pulse Ox 97.5 F L 59 20 148/81 95 08/30/16 12:25 08/30/16 12:25 08/30/16 12:25 08/30/16 12:25 08/30/16 12:25 General appearance: Present: cooperative, A&O X 2, mild distress, answers questions appropriately - Neck Neck exam general surgery: Present: supple, trachea midline. Absent: lymphadenopathy - Cardiovascular Cardiovascular exam: Present: RRR, +S1, +S2. Absent: diastolic murmur, gallop, rubs, systolic murmur - GI/Abdominal GI/Abdominal exam: Present: normal bowel sounds, soft, tenderness (In the right upper quadrant with positive Tucker's sign), no peritoneal signs. Absent: distended - Extremities Exam Extremities exam: Present: tenderness (In bilateral lower legs), warm, radial pulses palpable and symetrical. Absent: calf tenderness, cyanotic, pedal edema - Neurological Exam Neurological exam: Present: alert, CN II-XII intact, no focal deficits. Absent : facial droop, speech deficit - Skin Skin exam: Present: dry, intact Internal Med - H&P Results - Labs CBC & Chem 7: 08/30/16 09:29 08/30/16 09:29 - Impressions Impressions Gallbladder Ultrasound 08/30/16 09:21 IMPRESSION: Slightly nodular echogenic liver. Gallstones. Right renal cyst. D/ / Junior Gonzalez MD / Junior Gonzalez MD Interpreting Provider: Junior Gonzalez MD Chest X-Ray 08/30/16 09:22 IMPRESSION: 1. No acute cardiopulmonary disease. 2. Hiatal hernia. D/ / 08/30/2016 10:03:13 Marsha Kurtz MD / triston Interpreting Provider: Marsha Kurtz MD - Attending Attestation This document has been at least partially created by [employer] recognition technology by Dr. Ruiz. Errors in grammar, wording or other phrases may exist. If errors are found after the documentation is signed, they will be addressed individually in the addendum section of this document when appropriate.
[2016-08-30] MEDS ORDERED: Albuterol Neb 1.25 MG/3 ML VIAL IH SCH (13:45)
[2016-08-30] MEDS: 0.9 % Sodium Chloride 1,000 ML IVC SCH (14:25)
--- NOTE | 2016-08-30 16:28 | Electrocardiograph Report ---
[address] [address] Test Date: 2016-08-30 Pat Name: Jackie Salmeron Department: 104 Room: 3A Gender: F Corporate Training Manager: : 1930 Requested By: Thomas Arrington Order Number: [id number] Reading MD: Wilfredo Flaherty MD Measurements Intervals [place] Rate: 62 P: 56 DE: 161 QRS: 46 QRSD: 89 T: 59 QT: 378 QTc: 383 Interpretive Statements SINUS RHYTHM Electronically Signed On 08-30-2016 16:27:05 EDT by Wilfredo Flaherty MD
[2016-08-30] MEDS ORDERED: *HR* Heparin 5,000 UNIT/ML VIAL IVP PRN ×2 (17:55)
[2016-08-30] MEDS ORDERED: *HR* Heparin 5,000 UNIT/ML VIAL SQ SCH (18:00)
[2016-08-30] MEDS: Metoprolol XL (24 HR) Succ 25 MG TAB.ER.24H PO SCH (18:15)
[2016-08-30] MEDS: Heparin 25,000 UNIT/500 ML D5W 25,000 UNIT/500 ML MLS IVC SCH (20:23)
[2016-08-30] MEDS: Budesonide/Formoterol 160/4.5 MDI IH SCH (22:06)
[2016-08-30] MEDS: Albuterol Neb 1.25 MG/3 ML VIAL IH SCH (22:06)
[2016-08-31] MEDS: 0.9 % Sodium Chloride 1,000 ML IVC SCH ×3 (00:35→21:08)
[2016-08-31 04:13] LABS: Basophils % 0.2 %; Eosinophils # 0.1 K/mcL (0.0-0.6); Eosinophils % 1.5 %; Hematocrit 40.9 % (35.3-44.9); Hemoglobin 13.2 g/dL (11.5-15.4); Immature Granulocytes % 1.6 % (0-4); Lymphocytes # 1.3 K/mcL (0.6-4.6); Lymphocytes % 13.4 %; Mean Corpuscular HGB Conc 32.3 g/dL (31.6-35.5); Mean Corpuscular Hemoglobin 28.7 pg (28.0-33.3); Mean Corpuscular Volume 88.9 fL (83.0-100.0); Mean Platelet Volume 10.4 fL (9.4-12.4); Monocytes # 0.9 K/mcL (0.0-1.3); Monocytes % 9.1 %; Neutrophils # 7.2 K/mcL (1.6-8.9); Platelet Count 125 K/mcL (140-400); Red Cell Distribution Width 13.5 % (11.5-14.5); Segmented Neutrophils % 74.2 %
[2016-08-31 04:22] LABS: BUN/Creatinine Ratio 16 (6-26); Blood Urea Nitrogen 11 mg/dL (7-20); Calcium 7.5 mg/dL (8.6-10.8); Carbon Dioxide 19 mEq/L (19-29); Chloride 105 mEq/L (98-109); Glucose 66 mg/dL (70-99); Osmolality,Calculated 276 (280-300); Potassium 4.5 mEq/L (3.5-4.5); Sodium 134 mEq/L (136-145); eGFR For African Americans > 60 (> 60); eGFR For Non-African Americans > 60 (> 60)
[2016-08-31 04:23] LABS: Albumin 2.7 g/dL (3.5-5.0); Albumin/Globulin Ratio 1.2 (1.1-2.2); Bilirubin,Direct 0.6 mg/dL (0.0-0.5); Bilirubin,Indirect 1.1 mg/dL (0.0-1.2); Bilirubin,Total 1.7 mg/dL (0.2-1.2); Globulin 2.3 g/dL (2.4-3.5)
[2016-08-31 04:35] LABS: Activated Partial Thrombo Time 125.4 Seconds (26.0-36.0)
[2016-08-31 04:45] LABS: Heparin anti-factor XA UFH 0.76 IU/mL (0.30-0.70)
[2016-08-31] MEDS: Acetaminophen 325 MG TABLET PO PRN (06:05)
[2016-08-31] MEDS: Budesonide/Formoterol 160/4.5 MDI IH SCH ×2 (07:32→21:05)
[2016-08-31] MEDS: Albuterol Neb 1.25 MG/3 ML VIAL IH SCH ×2 (07:33→21:05)
[2016-08-31] MEDS ORDERED: Metoprolol XL (24 HR) Succ 25 MG TAB.ER.24H PO SCH (09:00)
--- NOTE | 2016-08-31 11:56 | Venous Imaging Report ---
LE Venous Duplex Patient Name:Jackie Salmeron Order Number:[id number] Procedure Date:08/30/2016 Date:1930Age:86 yrs Gender:Female Location:[facility] Room #: 3A52 [place] Firer/Fireman:La Nena Galeano Referring MD:Keara Ruiz MD medical center director:DO Ran Meza MD:David Tran MD Primary Indications:BLE pain, new onset Secondary Indications: Risk Factors Yes/No Hx of DVT Hx of Chemotherapy Impressions: Acute deep venous thrombosis is present in the right common femoral vein. Normal right lower extremity superficial venous exam. Normal left lower extremity deep and superficial venous exam. Recommendations: Test completed on 08/30/2016 at 5:13:00 pm. Critical findings reported to PAUL Leon in person at 5:15:00 pm on 08/30/2016 by La Nena Galeano. Findings Venous Duplex Results: Right: There is an acute occlusive thrombus seen in the right common femoral. Prior Study: No prior study available for comparison. Lower Extremity Venous Duplex Side Vein Compress Spontaneous Flow Augment Diameter (cm) Depth (cm) Right Distal Iliac Normal Yes Phasic Yes Right Common Femoral None no Absent no Right Superficial Femoral Normal Yes Phasic Yes Right Popliteal Normal Yes Phasic Yes Right Posterior Tibial Normal Yes Phasic Yes Right Peroneal Normal Yes Phasic Yes Right Saphenofemoral [place]unction Normal Yes Phasic Yes Right Great Saphenous Normal Yes Phasic Yes Right Lesser Saphenous Normal Yes Phasic Yes Left Distal Iliac Normal Yes Phasic Yes Left Common Femoral Normal Yes Phasic Yes Left Superficial Femoral Normal Yes Phasic Yes Left Popliteal Normal Yes Phasic Yes Left Posterior Tibial Normal Yes Phasic Yes Left Peroneal Normal Yes Phasic Yes Left Saphenofemoral [place] Normal Yes Phasic Yes Left Great Saphenous Normal Yes Phasic Yes Left Lesser Saphenous Normal Yes Phasic Yes Updated by David Tran MD on 08/31/2016 11:51:10 AM electronically signed on 08/31/2016 11:51:24 AM with status of Final
--- NOTE | 2016-08-31 15:29 | General Surgery Progress Note ---
Date of Encounter: 08/31/16 Time of Encounter: 15:15 - Assessment and Plan (1) Abdominal pain Current Visit: Yes Status: Resolved CT scan of abdomen/pelvis with no acute abnormality to account for patient previous pain Pain resolved No surgical intervention indicated Continue cardiac diet Surgery will sign off at this time. Thank you for allowing us to participate in the care of this patient. Please call with any further questions/concerns. Qualifiers: Abdominal location: lower abdomen, unspecified Qualified Code(s): R10.30 - Lower abdominal pain, unspecified (2) Cholelithiasis Current Visit: Yes Status: Chronic No surgical intervention indicated Qualifiers: Cholelithiasis location: gallbladder Cholecystitis presence: without cholecystitis Biliary obstruction: without biliary obstruction Qualified Code(s): K80.20 - Calculus of gallbladder without cholecystitis without obstruction (3) Pulmonary embolism Current Visit: No Status: Acute Heparin gtt Management per medicine service Qualifiers: Pulmonary embolism type: other Chronicity: acute Acute cor pulmonale presence: without acute cor pulmonale Qualified Code(s): I26.99 - Other pulmonary embolism without acute cor pulmonale (4) Hypertension Current Visit: Yes Status: Chronic Normotensive Management per medicine service Qualifiers: Hypertension type: essential hypertension Qualified Code(s): I10 - Essential (primary) hypertension (5) Dementia Current Visit: No Status: Chronic Qualifiers: Dementia type: unspecified type Dementia behavioral disturbance: without behavioral disturbance Qualified Code(s): F03.90 - Unspecified dementia without behavioral disturbance (6) DVT prophylaxis Current Visit: No Status: Acute Heparin gtt Subjective Patient reports: no new complaints, feels better, tolerating a regular diet, voiding w/o difficulty, flatus, bowel movement, afebrile, other (Abdominal pain resolved) Objective Vital Signs - Last 8 Hours Temp Pulse Resp BP Pulse Ox 08/31/16 11:31 97.5 F L 57 18 117/64 95 08/31/16 08:06 97.5 F L 71 18 122/59 93 L 08/31/16 07:32 18 94 L Intake and Output 08/30/16 08/31/16 08/31/16 23:59 07:59 15:59 Intake Total 0 / 0 1189 / 1189 1700 / 1700 Output Total 700 / 700 750 / 750 400 / 400 Balance -700 / -700 439 / 439 1300 / 1300 Intake: IV Fluids 1139 / 1139 1250 / 1250 0.9 % Sodium Chloride 1, 1000 / 1000 1000 / 1000 000 ML @ 100 mls/hr IVC . Q10H [facility] Rx#:[id number] Heparin 25,000 UNIT/500 139 / 139 250 / 250 ML D5W 25,000 unit In 500 ml @ 14 UNIT/KG/HR 19. 051 mls/hr IVC .Q24H [facility] Rx#:[id number] Oral 0 / 0 50 / 50 450 / 450 Output: Urine 700 / 700 750 / 750 400 / 400 Other: Meal Breakfast Percent of Meal Consumed 10% Weight 68 kg Patient Weight 08/31/16 23:59 Weight 68 kg - General physical appearance well developed, well nourished, no distress, no pain - Eyes normal ocular movement - ENT normal mucosa, atraumatic, normocephalic - Neck Neck exam: trachea midline - Respiratory normal respiratory effort, clear to auscultation - Cardiovascular Cardiovascular exam: Present: RRR - Abdomen Abdomen: Present: bowel sounds present, soft, non tender - Neurologic CN 2-12 grossly intact - Musculoskeletal normal gait, normal posture - Psychiatric oriented to time, oriented to person, oriented to place, speech is normal, memory intact - Labs 08/31/16 03:27 08/31/16 03:27 Diabetes panel 08/31/16 08/31/16 Range/Units 03:27 03:27 Sodium 134 L (136-145) mEq/L Potassium 4.5 (3.5-4.5) mEq/L Chloride 105 (98-109) mEq/L Carbon Dioxide 19 (19-29) mEq/L BUN 11 (7-20) mg/dL Creatinine 0.67 (0.57-1.11) mg/dL Glucose 66 L (70-99) mg/dL Calcium 7.5 L (8.6-10.8) mg/dL AST 15 (5-34) Units/L ALT 11 (0-55) Units/L Alkaline Phosphatase 50 (38-126) Units/L Albumin 2.7 L (3.5-5.0) g/dL Calcium panel 08/31/16 08/31/16 Range/Units 03:27 03:27 Calcium 7.5 L (8.6-10.8) mg/dL Albumin 2.7 L (3.5-5.0) g/dL Pituitary panel 08/31/16 Range/Units 03:27 Sodium 134 L (136-145) mEq/L Potassium 4.5 (3.5-4.5) mEq/L Chloride 105 (98-109) mEq/L Carbon Dioxide 19 (19-29) mEq/L BUN 11 (7-20) mg/dL Creatinine 0.67 (0.57-1.11) mg/dL Glucose 66 L (70-99) mg/dL Calcium 7.5 L (8.6-10.8) mg/dL Adrenal panel 08/31/16 08/31/16 Range/Units 03:27 03:27 Sodium 134 L (136-145) mEq/L Potassium 4.5 (3.5-4.5) mEq/L Chloride 105 (98-109) mEq/L Carbon Dioxide 19 (19-29) mEq/L BUN 11 (7-20) mg/dL Creatinine 0.67 (0.57-1.11) mg/dL Glucose 66 L (70-99) mg/dL Calcium 7.5 L (8.6-10.8) mg/dL Total Bilirubin 1.7 H (0.2-1.2) mg/dL AST 15 (5-34) Units/L ALT 11 (0-55) Units/L Alkaline Phosphatase 50 (38-126) Units/L Albumin 2.7 L (3.5-5.0) g/dL Consult Discharge Plan - Plan Referrals: Chrissy Marie DO [Primary Care Provider] - - Attending Attestation I examined this patient and my medical decision-making was reviewed with the MISSION MANAGER/PA/Advanced Practice Nurse/Resident Physician. I agree with the documented findings, disposition and treatment plan as described except to the extent set forth below. Do mot bill patient for visit for me today (Dr Garner), patient was solely evaluated by Lilli Fitzgerald, we personally discussed patient and given my visit with patient yesterday do not disagree with her assessment and plan
--- NOTE | 2016-08-31 16:22 | Internal Med Progress Note ---
Date of Encounter: 08/31/16 Time of Encounter: 16:20 - Assessment and plan (1) DVT (deep venous thrombosis) Current Visit: Yes Status: Acute Assessment and plan: Would like to carry her out on heparin for 48 hours prior to discharge. I will do that today. We will start Xarelto in the morning and discontinue the heparin shortly thereafter. Qualifiers: DVT location: lower extremity Affected thrombotic vein of extremity: femoral Laterality: right Chronicity: acute Qualified Code(s): I82.411 - Acute embolism and thrombosis of right femoral vein (2) Abdominal pain Current Visit: Yes Status: Resolved Qualifiers: Abdominal location: lower abdomen, unspecified Qualified Code(s): R10.30 - Lower abdominal pain, unspecified - Time Spent With Patient 25 - 35 minutes - Subjective Interval history: Right upper quadrant pain is resolved. She states she feeling good there. She is on heparin for DVT. Family does not want her on any Coumadin. She had been on Xarelto before and that one is ok by them. - Constitutional Vitals: Temp Pulse Resp BP Pulse Ox 97.5 F L 57 18 117/64 95 08/31/16 11:31 08/31/16 11:31 08/31/16 11:31 08/31/16 11:31 08/31/16 11:31 General appearance: Present: cooperative, A&O X 2, answers questions appropriately - Respiratory Respiratory exam: Present: CTAB. Absent: respiratory distress, rhonchi - Cardiovascular Cardiovascular exam: Present: RRR Internal Medicine: Result - Labs CBC & Chem 7: 08/31/16 03:27 08/31/16 03:27 Labs: Short CBC 08/31/16 Range/Units 03:27 WBC 9.6 (4.3-11.1) K/mcL Hgb 13.2 (11.5-15.4) g/dL Hct 40.9 (35.3-44.9) % Plt Count 125 L (140-400) K/mcL Neutrophils # 7.2 (1.6-8.9) K/mcL BMP 08/31/16 03:27 Sodium 134 L Potassium 4.5 Chloride 105 Carbon Dioxide 19 BUN 11 Creatinine 0.67 Glucose 66 L Calcium 7.5 L Liver Function 08/31/16 Range/Units 03:27 Total Bilirubin 1.7 H (0.2-1.2) mg/dL Direct Bilirubin 0.6 H (0.0-0.5) mg/dL AST 15 (5-34) Units/L ALT 11 (0-55) Units/L Alkaline Phosphatase 50 (38-126) Units/L Albumin 2.7 L (3.5-5.0) g/dL - ABG Interpretation ABG results: PT/INR, D-dimer PT 13.6 Seconds (9.4-12.1) H 08/30/16 09:25 - Impressions Impressions Abdomen/Pelvis CT 08/30/16 20:30 IMPRESSION: 1. No acute findings are identified in the abdomen and pelvis. 2. Moderate to large hiatal hernia. 3. Cholelithiasis. D/ / 08/30/2016 21:23:58 Indio Connell MD / ritika Interpreting Provider: Indio Connell MD Consult Discharge Plan - Plan Referrals: Chrissy Marie DO [Primary Care Provider] -
[2016-08-31] MEDS ORDERED: Furosemide 40 MG TABLET PO PRN (16:26)
[2016-08-31] MEDS: Metoprolol XL (24 HR) Succ 25 MG TAB.ER.24H PO SCH (17:29)
[2016-09-01] MEDS: Heparin 25,000 UNIT/500 ML D5W 25,000 UNIT/500 ML MLS IVC SCH (03:19)
[2016-09-01 07:55] LABS: Heparin anti-factor XA UFH 0.6 IU/mL (0.30-0.70)
[2016-09-01] MEDS: Albuterol Neb 1.25 MG/3 ML VIAL IH SCH ×2 (07:59→21:04)
[2016-09-01] MEDS: Budesonide/Formoterol 160/4.5 MDI IH SCH ×2 (07:59→21:04)
[2016-09-01] MEDS ORDERED: Heparin 25,000 UNIT/500 ML D5W 25,000 UNIT/500 ML MLS IVC SCH (08:32)
[2016-09-01] MEDS ORDERED: *HR* Rivaroxaban 15 MG TABLET PO SCH (09:00)
[2016-09-01] MEDS: *HR* Rivaroxaban 15 MG TABLET PO SCH ×2 (09:45→21:46)
[2016-09-01] MEDS: Acetaminophen 325 MG TABLET PO PRN ×2 (12:46→21:48)
--- NOTE | 2016-09-01 13:42 | Discharge Summary ---
Date of Encounter: 09/01/16 Time of Encounter: 13:37 - Discharge Diagnosis (1) DVT (deep venous thrombosis) Priority: Primary Status: Acute Qualifiers: DVT location: lower extremity Affected thrombotic vein of extremity: femoral Laterality: right Chronicity: acute Qualified Code(s): I82.411 - Acute embolism and thrombosis of right femoral vein (2) Abdominal pain Priority: Secondary Status: Resolved Qualifiers: Abdominal location: lower abdomen, unspecified Qualified Code(s): R10.30 - Lower abdominal pain, unspecified - Discharge Medications Prescriptions: Rivaroxaban [Xarelto] 15 mg PO BID #40 tablet Rivaroxaban [Xarelto] 20 mg PO DAILY #30 tablet Home Medications: Albuterol Sulfate [Proair Hfa] 2 puff IH Q4H PRN 10/23/15 [History] Donepezil [Aricept] 5 mg PO DAILY 10/23/15 [History] Furosemide [Lasix] 40 mg PO DAILY PRN 10/23/15 [History] Metoprolol XL (24 HR) Succ [Toprol Xl] 12.5 mg PO DAILY #30 tab.er.24h 10/27/15 [Rx] Budesonide/Formoterol 160/4.5 [Symbicort 160/4.5] 1 puff IH BID 30 Days [Rx] Albuterol Neb [AccuNeb] 1.25 mg IH Q12H 07/21/16 [History] Rivaroxaban [Xarelto] 15 mg PO BID #40 tablet 09/01/16 [Rx] Rivaroxaban [Xarelto] 20 mg PO DAILY #30 tablet 09/01/16 [Rx] Allergies/Adverse Reactions: Allergies cefdinir [From Omnicef] Allergy (Verified 04/25/16 17:00) Hypertension Procedures/tests Complete & Pending: Procedures Performed prior 72 hours Category Date Time Status CT abd pelvis w iv and oral [CT] Stat Cat Scan 08/30/16 20:30 Completed Venous Doppler [EV venous imaging LE BI] Stat Y 08/30/16 13:31 Completed Date of admission: 08/30/16 11:00 Primary care physician: Javad Ivey Consults: 08/30/16 11:24 Consult to Surgery [CONS] Routine Consulting Provider: María Garner Reason for Consult: Called in ED, Gallstones, eval for curtis leukocytosis Call Completed: Yes - Patient Status Disposition: Home, Self-Care Condition: Fair Functional capacity at discharge: independent ambulation Overall status at discharge: patient is not back to baseline - Discharge Instructions Follow Up With: Chrissy Marie DO [Primary Care Provider] - - Diet and Activity Activity: increase activity as tolerated Diet: low fat, low cholesterol Hospital course: Ms. Salmeron is a 86 year old female who presented to the emergency room with abdominal pain for about a day prior to presentation to the emergency department. Evaluation in emergency department indicated leukocytosis. Right upper quadrant tenderness. She also had a bilirubin level of 1.6 with normal After admission her next morning's white blood cell count was back to normal at 9.6. She was spontaneously normal on her abdominal discomfort. In passing she was having swelling of the legs and got a duplex of the leg that showed a DVT. She was started on heparin initially. Family wants her transition to his overall toe. And we have converted over to several toe. She will go home on Cymbalta for her DVT. She will 1:15 twice a day for 3 weeks followed by [address] scan of the abdomen and pelvis showed multiple calcified gallstones. There is no pericholecystic edema. Ultrasound showed the evidence for gallstones but no mention of any acute inflammatory issues from the gallstones. She did have some slight bit of a right lower lung effusion - Time Spent with Patient Total time spent providing and/or coordinating discharge services: - Constitutional Vitals: Temp Pulse Resp BP Pulse Ox 100.4 F H 76 18 146/76 96 09/01/16 12:54 09/01/16 11:46 09/01/16 11:46 09/01/16 11:46 09/01/16 11:46 General appearance: Present: cooperative, A&O X 2, answers questions appropriately - Respiratory Respiratory exam: Present: decreased breath sounds, CTAB - Cardiovascular Cardiovascular exam: Present: RRR - GI/Abdominal GI/Abdominal exam: Present: normal bowel sounds, soft
[2016-09-01 15:05] LABS: Basophils % 0.2 %; Eosinophils # 0.1 K/mcL (0.0-0.6); Eosinophils % 0.5 %; Hematocrit 39.1 % (35.3-44.9); Immature Granulocytes % 0.8 % (0-4); Lymphocytes # 1.2 K/mcL (0.6-4.6); Lymphocytes % 9.3 %; Mean Corpuscular HGB Conc 33.2 g/dL (31.6-35.5); Mean Corpuscular Hemoglobin 29.2 pg (28.0-33.3); Mean Corpuscular Volume 87.9 fL (83.0-100.0); Mean Platelet Volume 10.2 fL (9.4-12.4); Monocytes # 1.1 K/mcL (0.0-1.3); Monocytes % 8.4 %; Neutrophils # 10.5 K/mcL (1.6-8.9); Platelet Count 128 K/mcL (140-400); Red Blood Count 4.45 M/mcL (3.82-4.97); Red Cell Distribution Width 13.5 % (11.5-14.5); Segmented Neutrophils % 80.8 %
[2016-09-01 15:17] LABS: Alanine Aminotransferase 9 Units/L (0-55); Albumin 2.7 g/dL (3.5-5.0); Alkaline Phosphatase 48 Units/L (38-126); Aspartate Amino Transferase 13 Units/L (5-34); BUN/Creatinine Ratio 10 (6-26); Bilirubin,Total 1.4 mg/dL (0.2-1.2); Blood Urea Nitrogen 8 mg/dL (7-20); Calcium 8.3 mg/dL (8.6-10.8); Carbon Dioxide 24 mEq/L (19-29); Chloride 102 mEq/L (98-109); Globulin 2.7 g/dL (2.4-3.5); Glucose 156 mg/dL (70-99); Osmolality,Calculated 274 (280-300); Potassium 3.8 mEq/L (3.5-4.5); Sodium 131 mEq/L (136-145); Total Protein 5.4 g/dL (6.0-8.3); eGFR For African Americans > 60 (> 60); eGFR For Non-African Americans > 60 (> 60)
[2016-09-01] MEDS ORDERED: Levofloxacin 500 MG/100 ML 500 MG/100 ML BAG IVPB ONE (17:00)
[2016-09-01] MEDS ORDERED: *HR* OxyCODONE/APAP 5/325 TABLET PO PRN (17:00)
--- NOTE | 2016-09-01 17:05 | Event Note ---
Date of Encounter: 09/01/16 Time of Encounter: 17:02 I was called to see the patient because of increasing fever, and as staff said was "right upper quadrant pain". When I get there are find that she is having pain in her lower rib cage areas. She is tender on her lower rib cage from her posterior toward her anterior abdomen. She had a temperature runner 0.3. She has rales present at that base. She has also been recently diagnosed with a DVT. There was a small pleural effusion on that right lower lung field with some changes. Apparently the ladies had some past history and recalcitrant history of pneumonia Chest x-ray reveals worsening changes in that right lower lung field consistent with a progressing pneumonia. White count was elevated. Plan; hold the discharge right now... Start on Levaquin 500 IV daily one dose now. We will check a CBC in the morning and if she becomes afebrile with a normal white count will get her discharged home at that time.
[2016-09-01] MEDS: 0.9 % Sodium Chloride 1,000 ML IVC SCH (19:00)
[2016-09-01] MEDS: Metoprolol XL (24 HR) Succ 25 MG TAB.ER.24H PO SCH (19:00)
[2016-09-02 05:19] LABS: Basophils % 0.2 %; Eosinophils # 0.1 K/mcL (0.0-0.6); Eosinophils % 0.6 %; Immature Granulocytes % 0.8 % (0-4); Lymphocytes # 1.1 K/mcL (0.6-4.6); Lymphocytes % 10.9 %; Mean Corpuscular HGB Conc 32.3 g/dL (31.6-35.5); Mean Corpuscular Hemoglobin 28.5 pg (28.0-33.3); Mean Corpuscular Volume 88.4 fL (83.0-100.0); Mean Platelet Volume 10.3 fL (9.4-12.4); Monocytes # 0.9 K/mcL (0.0-1.3); Monocytes % 9.1 %; Neutrophils # 7.9 K/mcL (1.6-8.9); Platelet Count 113 K/mcL (140-400); Red Blood Count 3.96 M/mcL (3.82-4.97); Red Cell Distribution Width 13.4 % (11.5-14.5); Segmented Neutrophils % 78.4 %
[2016-09-02 05:39] LABS: Hemoglobin 11.3 g/dL (11.5-15.4)
[2016-09-02 05:54] LABS: BUN/Creatinine Ratio 9 (6-26); Blood Urea Nitrogen 6 mg/dL (7-20); Calcium 7.7 mg/dL (8.6-10.8); Carbon Dioxide 23 mEq/L (19-29); Chloride 109 mEq/L (98-109); Glucose 84 mg/dL (70-99); Osmolality,Calculated 283 (280-300); Potassium 4.2 mEq/L (3.5-4.5); eGFR For African Americans > 60 (> 60); eGFR For Non-African Americans > 60 (> 60)
[2016-09-02 05:58] LABS: Sodium 138 mEq/L (136-145)
[2016-09-02] MEDS: 0.9 % Sodium Chloride 1,000 ML IVC SCH (06:48)
[2016-09-02 07:41] VITALS: BP 135/74
[2016-09-02] MEDS: Budesonide/Formoterol 160/4.5 MDI IH SCH (07:52)
[2016-09-02] MEDS: Albuterol Neb 1.25 MG/3 ML VIAL IH SCH (07:52)
--- NOTE | 2016-09-02 09:53 | Discharge Summary ---
Date of Encounter: 09/02/16 (n) Time of Encounter: 09:49 - Discharge Diagnosis (1) DVT (deep venous thrombosis) Priority: Primary Status: Acute Qualifiers: DVT location: lower extremity Affected thrombotic vein of extremity: femoral Laterality: right Chronicity: acute Qualified Code(s): I82.411 - Acute embolism and thrombosis of right femoral vein (2) Abdominal pain Priority: Primary Status: Resolved Qualifiers: Abdominal location: lower abdomen, unspecified Qualified Code(s): R10.30 - Lower abdominal pain, unspecified (3) Community acquired bacterial pneumonia Priority: Primary Status: Acute - Discharge Medications Prescriptions: OxyCODONE/APAP 5/325 [Percocet 5/325 MG] 1 each PO Q4HR PRN #12 tablet PRN Reason: Pain Levofloxacin [Levaquin] 500 mg PO DAILY #7 tablet Rivaroxaban [Xarelto] 15 mg PO BID #40 tablet Rivaroxaban [Xarelto] 20 mg PO DAILY #30 tablet Home Medications: Albuterol Sulfate [Proair Hfa] 2 puff IH Q4H PRN 10/23/15 [History] Donepezil [Aricept] 5 mg PO DAILY 10/23/15 [History] Furosemide [Lasix] 40 mg PO DAILY PRN 10/23/15 [History] Metoprolol XL (24 HR) Succ [Toprol Xl] 12.5 mg PO DAILY #30 tab.er.24h 10/27/15 [Rx] Budesonide/Formoterol 160/4.5 [Symbicort 160/4.5] 1 puff IH BID 30 Days [Rx] Albuterol Neb [AccuNeb] 1.25 mg IH Q12H 07/21/16 [History] Rivaroxaban [Xarelto] 15 mg PO BID #40 tablet 09/01/16 [Rx] Rivaroxaban [Xarelto] 20 mg PO DAILY #30 tablet 09/01/16 [Rx] Levofloxacin [Levaquin] 500 mg PO DAILY #7 tablet 09/02/16 [Rx] OxyCODONE/APAP 5/325 [Percocet 5/325 MG] 1 each PO Q4HR PRN #12 tablet 09/02/16 [Rx] Allergies/Adverse Reactions: Allergies cefdinir [From Omnicef] Allergy (Verified 04/25/16 17:00) Hypertension Procedures/tests Complete & Pending: Procedures Performed prior 72 hours Category Date Time Status CT abd pelvis w iv and oral [CT] Stat Cat Scan 08/30/16 20:30 Completed Venous Doppler [EV venous imaging LE BI] Stat Y 08/30/16 13:31 Completed Date of admission: 08/30/16 11:00 Primary care physician: Javad Ivey Consults: 08/30/16 11:24 Consult to Surgery [CONS] Routine Consulting Provider: María Garner Reason for Consult: Called in ED, Gallstones, eval for curtis leukocytosis Call Completed: Yes - Patient Status Disposition: Home, Self-Care Condition: Fair Functional capacity at discharge: independent ambulation Overall status at discharge: patient is progressing back to baseline - Discharge Instructions Follow Up With: Chrissy Marie DO [Primary Care Provider] - (7-10 days, sooner if any problems ) - Diet and Activity Activity: increase activity as tolerated Diet: advance to your usual diet Hospital course: Ms. Salmeron is a 86 year old female admitted to the hospitalfor her long-term anticoagulants with a DVT in her leg and acute abdominal pain in her right upper quadrant. CAT scan of the abdomen and pelvis demonstrated cholelithiasis without acute changes, hiatal hernia, and no acute changes to explain her current pain. Venous duplex of the legs revealed an acute venous thrombus in the right common femoral vein. She was initially started on heparin then transitioned to Xarelto for herl gaby-term anticoagulation. We had her ready for discharge yesterday when she developed a fever, and what appeared to be right upper quadrant pain. However on my exam she had rales at her right base and chest x- ray indicated a developing right lower lobe pneumonia. She had an elevated white count at the time as well. So we started her on Levaquin This morning, she is afebrile, her pain is settled down. Her white count returned to normal. She wants to go home. - Time Spent with Patient Total time spent providing and/or coordinating discharge services: - Constitutional Vitals: Temp Pulse Resp BP Pulse Ox 99.0 F 79 18 135/74 93 L 09/02/16 07:35 09/02/16 07:35 09/02/16 07:35 09/02/16 07:35 09/02/16 07:35 General appearance: Present: cooperative, A&O X 2, answers questions appropriately - Respiratory Respiratory exam: Present: chest wall tenderness (right lower rib cage is very tender), CTAB (clear except for the sounds in the right lower base) - Expanded Respiratory Exam Location: rales: Right, Lower - Cardiovascular Cardiovascular exam: Present: RRR
[2016-09-02] MEDS: *HR* Rivaroxaban 15 MG TABLET PO SCH (11:22)
[2016-09-02] MEDS ORDERED: Levofloxacin 250 MG/50 ML 250 MG/50 ML BAG IVPB SCH (17:00)
== END 2016-09-02 11:58 | disposition home or self-care (01) ==
LOC: 3ANU 08:54 → EMEROO 08:54 → 3ANU 11:40
PROVIDERS: ADMIT Internal Medicine; ATTEND Internal Medicine

== ENCOUNTER 2017-06-29 10:37 | Observation (INO) ==
[2017-06-29] MEDS ORDERED: Ipratropium/Albuterol Neb 3 ML ONE (10:43)
[2017-06-29] MEDS ORDERED: Ipratropium/Albuterol Neb 3 ML IH ONE ×2 (10:53→11:04)
[2017-06-29] MEDS ORDERED: methylPREDNISolone 125 MG/2 ML VIAL IVP ONE (11:04)
[2017-06-29] MEDS ORDERED: Aspirin 81 MG TAB.CHEW PO ONE (11:06)
[2017-06-29 12:19] LABS: Bilirubin,Urine Negative (Negative); Blood,Urine Negative (Negative); Clarity,Urine Clear (Clear); Color,Urine Yellow (Yellow); Glucose,Urine (UA) Normal (Normal); Ketones,Urine Negative (Negative); Leukocyte Esterase,Urine Moderate (Negative); Nitrite,Urine Negative (Negative); Protein,Urine Negative (Neg-Trace); Specific Gravity,Urine 1.026 (1.010-1.025); Urobilinogen,Urine Normal (Normal)
[2017-06-29 12:22] LABS: Bacteria,Urine None Seen per hpf (None-Few); Hyaline Casts,Urine None Seen per lpf (None-Few); Squamous Epithelial Cell,Urine Many per lpf (None-Few); WBC,Urine 15-30 per hpf (0-3)
--- NOTE | 2017-06-29 13:00 | Emergency Department Note ---
Disposition Clinical Impression: Hypoxia Asthma exacerbation Qualifiers: Asthma severity: moderate Asthma persistence: unspecified Qualified Code(s): J45.901 - Unspecified asthma with (acute) exacerbation Dyspnea Qualifiers: Dyspnea type: unspecified Qualified Code(s): R06.00 - Dyspnea, unspecified Disposition: Admitted As Inpatient Condition: Good General Adult HPI - General Chief complaint: ED Shortness of Breath/Dyspnea Stated complaint: JORDON Time Seen by Provider: 06/29/17 10:54 Source: patient, family, EMS Limitations: no limitations Nursing Notes Reviewed: Yes Vital Signs Reviewed: Yes - History of Present Illness HPI Narrative: 87-year-old female who reports proximal 2 weeks of cough and shortness of breath with exertion. She has a history of asthma. She denies any cardiac history. She reports that it gets significantly better she sticks her head in the freezer. She has dementia and hypertension. She has not had a fever. She reports that she was seen by her primary care physician and given prednisone and an antibiotic and that she initially got better but now she is worse again. She does use breathing treatments at home which does help. Prior PE on Xarelto. Pain Scale: 0 Improves with: nothing Worsens with: movement Associated symptoms: Reports: denies other symptoms Treatments Prior to Arrival: none - Related Data Home Medications Medication Instructions Recorded Confirmed Albuterol Sulfate [Proair Hfa] 2 puff IH Q4H PRN 10/23/15 06/29/17 Donepezil [Aricept] 5 mg PO DAILY 10/23/15 06/29/17 Albuterol Neb [AccuNeb] 1.25 mg IH Q12H 07/21/16 06/29/17 Metoprolol XL (24 HR) Succ [Toprol 25 mg PO DAILY 06/29/17 06/29/17 Xl] Previous Rx's Medication Instructions Recorded Rivaroxaban [Xarelto] 20 mg PO DAILY #30 tablet 09/01/16 Benzonatate [Tessalon] 100 mg PO TID PRN #30 capsule 10/09/16 Allergies Allergy/AdvReac Type Severity Reaction Status Date / Time cefdinir [From Omnicef] Allergy Hypertensio Verified 10/09/16 21:12 n All systems ED: reviewed and negative except as stated. Constitutional: Denies: fever ENT ED: Denies: throat pain Cardiovascular: Denies: chest pain Respiratory: Reports: cough Gastrointestinal: Denies: abdominal pain, nausea, vomiting Musculoskeletal: Denies: back pain Integumentary: Denies: rash Neurological: Denies: headache Past Medical History - Past Medical History Medical history: Reports: asthma, DVT, dementia, hypertension Surgical history: Reports: hysterectomy Psychiatric history: Reports: anxiety - Social History Smoking Status: Never smoker Smokeless Tobacco Status: No Alcohol use: Reports: none Drug use: Reports: none Physical Exam - General Limitations: no limitations General appearance: alert - Head Head exam: atraumatic - Eye Eye exam: Present: normal appearance, PERRL - ENT ENT exam: normal exam, normal oropharynx - Neck Neck exam: Present: normal inspection - Chest Chest inspection: Present: normal inspection - Respiratory Respiratory exam: Present: other (Current wheezes are present. No accessory muscle use. No distress) - Cardiovascular Cardiovascular exam: Present: regular rate, normal rhythm - Abdominal Exam Abdominal exam: Present: soft, Non-Tender - Extremities Exam Extremities exam: Present: normal inspection. Absent: pedal edema - Neurological Exam Neurological exam: Present: alert - Skin Skin exam: Present: warm, dry Course Course Narrative: Acting normally according to family/caregivers in the room. CTA negative. Labwork stable. Still requiring O2 so will admit for asthma exacerbation. Vital Signs Temperature 97.8 F 06/29/17 10:44 Pulse Rate 78 06/29/17 10:44 Respiratory Rate 28 06/29/17 10:44 Blood Pressure 173/112 06/29/17 10:44 O2 Sat by Pulse Oximetry 94 06/29/17 10:44 Temperature 97.8 F 06/29/17 10:44 Pulse Rate 98 06/29/17 17:00 Respiratory Rate 18 06/29/17 17:30 Blood Pressure 152/84 06/29/17 17:30 O2 Sat by Pulse Oximetry 92 06/29/17 17:00 Oxygen Delivery Oxygen Delivery Nasal Cannula Medical Decision Making - Medical Records Medical records reviewed: Yes I reviewed the patient's medical records. - Lab Data Lab results reviewed: Yes I reviewed the patient's lab results. Result diagrams: 06/29/17 13:21 06/29/17 13:21 Lab Results 06/29/17 06/29/17 06/29/17 Range/Units 12:10 13:21 13:21 WBC 4.3 (4.3-11.1) K/mcL RBC 4.79 (3.82-4.97) M/mcL Hgb 14.1 (11.5-15.4) g/dL Hct 42.2 (35.3-44.9) % MCV 88.1 (83.0-100.0) fL MCH 29.4 (28.0-33.3) pg MCHC 33.4 (31.6-35.5) g/dL RDW 13.1 (11.5-14.5) % Plt Count 170 (140-400) K/mcL MPV 9.9 (9.4-12.4) fL Immature Gran % 0.2 (0-4) % Seg Neutrophils % 63.9 % Lymphocytes % 18.7 % Monocytes % 3.0 % Eosinophils % 12.6 % Basophils % 1.6 % Neutrophils # 2.7 (1.6-8.9) K/mcL Lymphocytes # 0.8 (0.6-4.6) K/mcL Monocytes # 0.1 (0.0-1.3) K/mcL Eosinophils # 0.5 (0.0-0.6) K/mcL Basophils # 0.1 (0.0-0.2) K/mcL PT (9.4-12.1) Seconds INR APTT (26.0-36.0) Seconds Sodium (136-145) mEq/L Potassium (3.5-5.1) mEq/L Chloride (98-107) mEq/L Carbon Dioxide (23-29) mEq/L BUN (8-23) mg/dL Creatinine (0.60-1.20) mg/dL Est GFR ( Amer) (> 60) Est GFR (Non-Af Amer) (> 60) BUN/Creatinine Ratio (6-26) Glucose (70-105) mg/dL Calculated Osmolality (280-300) Lactic Acid (0.5-2.2) mmol/L Calcium (8.6-10.3) mg/dL Total Bilirubin 0.8 (0.3-1.0) mg/dL Direct Bilirubin 0.1 (0.0-0.2) mg/dL Indirect Bilirubin 0.7 (0.0-1.2) mg/dL AST 17 (13-39) Units/L ALT 9 (7-52) Units/L Alkaline Phosphatase 72 (34-104) Units/L Troponin I (< 0.04) ng/mL B-Natriuretic Peptide (Less than 100) pg/mL Serum Total Protein 5.9 L (6.4-8.9) g/dL Albumin 3.7 (3.5-5.7) g/dL Globulin 2.2 L (2.4-3.5) g/dL Albumin/Globulin Ratio 1.7 (1.1-2.2) Urine Color Yellow (Yellow) Urine Clarity Clear (Clear) Urine pH 6.0 (5.0-8.0) pH Units Ur Specific [place] 1.026 H (1.010-1.025) Urine Protein Negative (Neg-Trace) mg/dL Urine Glucose (UA) Normal (Normal) mg/dL Urine Ketones Negative (Negative) mg/dL Urine Blood Negative (Negative) Urine Nitrite Negative (Negative) Urine Bilirubin Negative (Negative) Urine Urobilinogen Normal (Normal) mg/dL Ur Leukocyte Esterase Moderate H (Negative) Urine Microscopic RBC 3-5 H (0-3) per hpf Urine Microscopic WBC 15-30 H (0-3) per hpf Ur Squamous Epith Cells Many H (None-Few) per lpf Urine Bacteria None Seen (None-Few) per hpf Hyaline Casts None Seen (None-Few) per lpf Ur Culture Indicated? NO. (NO) 06/29/17 06/29/17 06/29/17 Range/Units 13:21 13:21 13:21 WBC (4.3-11.1) K/mcL RBC (3.82-4.97) M/mcL Hgb (11.5-15.4) g/dL Hct (35.3-44.9) % MCV (83.0-100.0) fL MCH (28.0-33.3) pg MCHC (31.6-35.5) g/dL RDW (11.5-14.5) % Plt Count (140-400) K/mcL MPV (9.4-12.4) fL Immature Gran % (0-4) % Seg Neutrophils % % Lymphocytes % % Monocytes % % Eosinophils % % Basophils % % Neutrophils # (1.6-8.9) K/mcL Lymphocytes # (0.6-4.6) K/mcL Monocytes # (0.0-1.3) K/mcL Eosinophils # (0.0-0.6) K/mcL Basophils # (0.0-0.2) K/mcL PT 16.9 H (9.4-12.1) Seconds INR 1.6 APTT 32.8 (26.0-36.0) Seconds Sodium 139 (136-145) mEq/L Potassium 4.2 (3.5-5.1) mEq/L Chloride 108 H (98-107) mEq/L Carbon Dioxide 26 (23-29) mEq/L BUN 17 (8-23) mg/dL Creatinine 0.76 (0.60-1.20) mg/dL Est GFR ( Amer) > 60 (> 60) Est GFR (Non-Af Amer) > 60 (> 60) BUN/Creatinine Ratio 22 (6-26) Glucose 95 (70-105) mg/dL Calculated Osmolality 289 (280-300) Lactic Acid 1.1 (0.5-2.2) mmol/L Calcium 8.9 (8.6-10.3) mg/dL Total Bilirubin (0.3-1.0) mg/dL Direct Bilirubin (0.0-0.2) mg/dL Indirect Bilirubin (0.0-1.2) mg/dL AST (13-39) Units/L ALT (7-52) Units/L Alkaline Phosphatase (34-104) Units/L Troponin I (< 0.04) ng/mL B-Natriuretic Peptide (Less than 100) pg/mL Serum Total Protein (6.4-8.9) g/dL Albumin (3.5-5.7) g/dL Globulin (2.4-3.5) g/dL Albumin/Globulin Ratio (1.1-2.2) Urine Color (Yellow) Urine Clarity (Clear) Urine pH (5.0-8.0) pH Units Ur Specific [place] (1.010-1.025) Urine Protein (Neg-Trace) mg/dL Urine Glucose (UA) (Normal) mg/dL Urine Ketones (Negative) mg/dL Urine Blood (Negative) Urine Nitrite (Negative) Urine Bilirubin (Negative) Urine Urobilinogen (Normal) mg/dL Ur Leukocyte Esterase (Negative) Urine Microscopic RBC (0-3) per hpf Urine Microscopic WBC (0-3) per hpf Ur Squamous Epith Cells (None-Few) per lpf Urine Bacteria (None-Few) per hpf Hyaline Casts (None-Few) per lpf Ur Culture Indicated? (NO) 06/29/17 06/29/17 Range/Units 13:21 13:21 WBC (4.3-11.1) K/mcL RBC (3.82-4.97) M/mcL Hgb (11.5-15.4) g/dL Hct (35.3-44.9) % MCV (83.0-100.0) fL MCH (28.0-33.3) pg MCHC (31.6-35.5) g/dL RDW (11.5-14.5) % Plt Count (140-400) K/mcL MPV (9.4-12.4) fL Immature Gran % (0-4) % Seg Neutrophils % % Lymphocytes % % Monocytes % % Eosinophils % % Basophils % % Neutrophils # (1.6-8.9) K/mcL Lymphocytes # (0.6-4.6) K/mcL Monocytes # (0.0-1.3) K/mcL Eosinophils # (0.0-0.6) K/mcL Basophils # (0.0-0.2) K/mcL PT (9.4-12.1) Seconds INR APTT (26.0-36.0) Seconds Sodium (136-145) mEq/L Potassium (3.5-5.1) mEq/L Chloride (98-107) mEq/L Carbon Dioxide (23-29) mEq/L BUN (8-23) mg/dL Creatinine (0.60-1.20) mg/dL Est GFR ( Amer) (> 60) Est GFR (Non-Af Amer) (> 60) BUN/Creatinine Ratio (6-26) Glucose (70-105) mg/dL Calculated Osmolality (280-300) Lactic Acid (0.5-2.2) mmol/L Calcium (8.6-10.3) mg/dL Total Bilirubin (0.3-1.0) mg/dL Direct Bilirubin (0.0-0.2) mg/dL Indirect Bilirubin (0.0-1.2) mg/dL AST (13-39) Units/L ALT (7-52) Units/L Alkaline Phosphatase (34-104) Units/L Troponin I < 0.03 (< 0.04) ng/mL B-Natriuretic Peptide 92 (Less than 100) pg/mL Serum Total Protein (6.4-8.9) g/dL Albumin (3.5-5.7) g/dL Globulin (2.4-3.5) g/dL Albumin/Globulin Ratio (1.1-2.2) Urine Color (Yellow) Urine Clarity (Clear) Urine pH (5.0-8.0) pH Units Ur Specific [place] (1.010-1.025) Urine Protein (Neg-Trace) mg/dL Urine Glucose (UA) (Normal) mg/dL Urine Ketones (Negative) mg/dL Urine Blood (Negative) Urine Nitrite (Negative) Urine Bilirubin (Negative) Urine Urobilinogen (Normal) mg/dL Ur Leukocyte Esterase (Negative) Urine Microscopic RBC (0-3) per hpf Urine Microscopic WBC (0-3) per hpf Ur Squamous Epith Cells (None-Few) per lpf Urine Bacteria (None-Few) per hpf Hyaline Casts (None-Few) per lpf Ur Culture Indicated? (NO) - Radiology Data Radiology results reviewed: Yes I reviewed the patient's radiology results. Chest X-Ray 06/29/17 11:05 IMPRESSION: Normal chest x-ray D/ / Kiko Sorensen MD / Kiko Sorensen MD Interpreting Provider: Kiko Sorensen MD Chest CTA 06/29/17 14:14 IMPRESSION: No evidence of pulmonary embolism or acute pulmonary abnormality. Large hiatal hernia. Cholelithiasis. D/ / 06/29/2017 15:42:19 Virginia Neal MD / [facility] Interpreting Provider: Virginia Neal MD - EKG Data EKG #1 EKG attestation: Yes I reviewed and interpreted this EKG. EKG shows normal: sinus rhythm Rate: normal Rhythm: NSR [place]/QRS: normal Interpretation: no acute changes Attestation Statement - Attestation Attestation: I examined this patient and my medical decision-making was reviewed with the Resident Physician, Dr. Parra. I agree with the documented findings, disposition and treatment plan as described except to the extent set forth below. Patient is an 87-year-old white female with history of asthma and prior PE on Xarelto who presents to the emergency department today brought by her daughters with concerns for gradually worsening difficulty breathing. Patient has had upper respiratory symptoms consistent with a viral illness for the past 2 weeks and has been complaining of gradually worsening shortness of breath and increased shortness of breath with exertion. Patient had nasal congestion, scratchy throat, productive cough with greenish sputum and increasing wheezing and difficulty breathing. Patient's been using her aerosols at home without improvement. Patient was also seen by her primary care physician and completed a round of antibiotics and steroids with no improvement. Patient was hypoxic on arrival with expiratory and inspiratory wheezing bilaterally on auscultation increased work of breathing. She denies any chest pain pressure or heaviness, no diaphoresis, no lightheadedness or syncope, no abdominal pain or flank pain. Patient's physical exam findings as documented. Patient hypertensive on arrival. Patient's EKG showed no acute ischemia. Normal sinus rhythm. A DuoNeb and IV steroids as well as aspirin on arrival. Laboratory values were within normal limits including BNP and troponin. Chest x-ray was unremarkable for infiltrates or pulmonary edema. On reevaluation patient was improved with improvement of her wheezing on auscultation but still remained hypoxic on room air. We will obtain a CTA of the chest with patient's recent history of PE. CTA was negative for any abnormalities. Patient will be admitted for acute exacerbation of asthma and dyspnea. Patient remains hemodynamically stable at this time.
[2017-06-29 13:30] LABS: Basophils # 0.1 K/mcL (0.0-0.2); Basophils % 1.6 %; Eosinophils # 0.5 K/mcL (0.0-0.6); Eosinophils % 12.6 %; Hematocrit 42.2 % (35.3-44.9); Hemoglobin 14.1 g/dL (11.5-15.4); Immature Granulocytes % 0.2 % (0-4); Lymphocytes # 0.8 K/mcL (0.6-4.6); Lymphocytes % 18.7 %; Mean Corpuscular HGB Conc 33.4 g/dL (31.6-35.5); Mean Corpuscular Hemoglobin 29.4 pg (28.0-33.3); Mean Corpuscular Volume 88.1 fL (83.0-100.0); Mean Platelet Volume 9.9 fL (9.4-12.4); Monocytes # 0.1 K/mcL (0.0-1.3); Neutrophils # 2.7 K/mcL (1.6-8.9); Platelet Count 170 K/mcL (140-400); Red Blood Count 4.79 M/mcL (3.82-4.97); Red Cell Distribution Width 13.1 % (11.5-14.5); Segmented Neutrophils % 63.9 %
[2017-06-29 13:36] LABS: INR 1.6; Prothrombin Time 16.9 Seconds (9.4-12.1)
[2017-06-29 13:39] LABS: Activated Partial Thrombo Time 32.8 Seconds (26.0-36.0)
[2017-06-29 13:48] LABS: Albumin 3.7 g/dL (3.5-5.7); Albumin/Globulin Ratio 1.7 (1.1-2.2); Bilirubin,Direct 0.1 mg/dL (0.0-0.2); Bilirubin,Indirect 0.7 mg/dL (0.0-1.2); Bilirubin,Total 0.8 mg/dL (0.3-1.0); Globulin 2.2 g/dL (2.4-3.5); Total Protein 5.9 g/dL (6.4-8.9)
[2017-06-29 13:50] LABS: BUN/Creatinine Ratio 22 (6-26); Blood Urea Nitrogen 17 mg/dL (8-23); Calcium 8.9 mg/dL (8.6-10.3); Carbon Dioxide 26 mEq/L (23-29); Chloride 108 mEq/L (98-107); Glucose 95 mg/dL (70-105); Osmolality,Calculated 289 (280-300); Potassium 4.2 mEq/L (3.5-5.1); Sodium 139 mEq/L (136-145); eGFR For African Americans > 60 (> 60); eGFR For Non-African Americans > 60 (> 60)
[2017-06-29] MEDS ORDERED: Albuterol 2.5 MG/3 ML NEBULIZER ONE (21:49)
[2017-06-29] MEDS ORDERED: Acetaminophen 325 MG TABLET PO PRN (21:51)
[2017-06-29] MEDS ORDERED: Naloxone 0.4 MG/ML INJ IVP PRN (21:51)
[2017-06-29] MEDS: Albuterol 2.5 MG/3 ML NEBULIZER IH PRN (22:00)
--- NOTE | 2017-06-29 22:09 | Internal Med History&Physical ---
<Olesya Rocha - Last Filed: 06/29/17 22:16> Date of Encounter: 06/29/17 Time of Encounter: 22:17 Assessment and Plan (1) Asthma exacerbation Current visit: Yes Status: Acute 1 patient has been experiencing increasing shortness of breath and cough wheezing for the past 2 weeks, shortness of breath and worsening over the past 24 hours presented to the ER with wheezing, requiring oxygen supplementation normally is not on oxygen. Continue with oxygen titrated to maintain a strict 2 g 92% Continue with duo nebs IV Solu-Medrol 60 mg every 6 Qualifiers: Asthma severity: moderate Asthma persistence: unspecified Qualified Code( s): J45.901 - Unspecified asthma with (acute) exacerbation (2) Hx of deep venous thrombosis Current visit: Yes Status: Acute Diagnosed with DVT last year continue with Xarelto CTA negative for any PE (3) DVT prophylaxis Current visit: No Status: Acute xarelto Internal Medicine - H&P: HPI Chief complaint: SOB Admitted From: Emergency Dept Plans for Post Hospital Care: Home History of present illness: Ms. Morales is a 87 year old female past medical history of asthma dementia and DVT. Patient has been experiencing increasing shortness of breath past 2 weeks she does have a history of asthma. Denies any fevers chills nausea vomiting diarrhea. Past 24 hours she has grown increasingly short of breath wheezing and coughing despite the use of breathing treatments. She presented to the ER requiring oxygen supplementation CTA chest was negative for any PE she was given duo nebs as well as steroids which did improve her respiratory state. She has been admitted for further workup and evaluation. Past Med Surg Social Fam HX - Past Medical History Medical history: asthma, DVT, dementia, hypertension Psychiatric history: anxiety - Past Surgical History Surgical History: hysterectomy - Social History Smoking Status: Never smoker Smokeless Tobacco Status: No Alcohol use: none Drug use: none - Family History Father Adopted: [place]: Maxi Graham Family Member Ethnicity: Non- Living Status: Age at : 69 Cause of : AR Hx Family Cardiac Disorders: Yes Hx Family Respiratory Disorders: No Hx Family Cancer: Yes (Melenoma) Hx Family GI Disorders: No Hx Family Endocrine Disorder: No Hx Family Neuromuscular Disorders: No Hx Family Neurologic Disorders: No Hx Family HEENT Disorders: No Hx Family Autoimmune Disorders: No Internal Medicine - H&P: Meds Albuterol Sulfate [Proair Hfa] 2 puff IH Q4H PRN 10/23/15 [History] Donepezil [Aricept] 5 mg PO DAILY 10/23/15 [History] Albuterol Neb [AccuNeb] 1.25 mg IH Q12H 07/21/16 [History] Rivaroxaban [Xarelto] 20 mg PO DAILY #30 tablet 09/01/16 [Rx] Benzonatate [Tessalon] 100 mg PO TID PRN #30 capsule 10/09/16 [Rx] Metoprolol XL (24 HR) Succ [Toprol Xl] 25 mg PO DAILY 06/29/17 [History] 3 Allergy/AdvReac Type Severity Reaction Status Date / Time cefdinir [From Omnicef] Allergy Hypertensio Verified 10/09/16 21:12 n All Systems PM: A 10-system review of systems was performed and is negative for pertinent findings except as documented above in the HPI. - Constitutional Constitutional: no chills, no fever(s), no night sweats - EENT Eyes: no change in vision, no discharge, no pain, no photophobia Ears: no ear discharge, no ear pain, no tinnitus Nose, mouth and throat: no dysphagia, no nasal discharge, no neck pain, no sore throat - Cardiovascular Cardiovascular ROS IM: no chest pain, no diaphoresis, no dyspnea, no lightheadedness, no palpitations, no syncope - Respiratory Respiratory: cough, wheezing, no dyspnea, no excessive phlegm production - Genitourinary Genitourinary: no change in urinary stream, no dysuria, no flank pain, no hematuria - Musculoskeletal Musculoskeletal ROS IM: no numbness, no tingling - Integumentary Integumentary IM: no rash, no unusual bruising - Neurological Neurological ROS: no confusion, no convulsions, no focal weakness, no numbness, no tingling, no tremor(s) - Hematologic/Lymphatic Hematologic/Lymphatic: no easy bruising - Constitutional Vitals: Temp Pulse Resp BP Pulse Ox 97.4 F L 96 16 167/81 98 06/29/17 19:08 06/29/17 19:08 06/29/17 19:08 06/29/17 19:08 06/29/17 19:08 General appearance: Present: A&O X 3 - Head Head exam: Present: atraumatic, normocephalic - Eye Eye exam: Present: PERRL, conjuntiva pink, sclera anicteric Pupils: Present: PERRL - Neck Neck exam general surgery: Present: supple, trachea midline. Absent: lymphadenopathy - Respiratory Respiratory exam: Present: wheezes. Absent: accessory muscle use, rales, rhonchi - Cardiovascular Cardiovascular exam: Present: RRR, +S1, +S2. Absent: diastolic murmur, gallop, rubs, systolic murmur - GI/Abdominal GI/Abdominal exam: Present: normal bowel sounds, soft, no peritoneal signs. Absent: distended, tenderness - Extremities Exam Extremities exam: Present: warm, radial pulses palpable and symmetrical. Absent : calf tenderness, cyanotic, pedal edema - Neurological Exam Neurological exam: Present: CN II-XII intact, oriented X3, no focal deficits. Absent: pronater drift, facial droop, speech deficit - Skin Skin exam: Present: dry, intact Internal Med - H&P Results - Labs CBC & Chem 7: 06/29/17 13:21 06/29/17 13:21 - EKG Data EKG shows normal: sinus rhythm - Diagnostic Studies Other Images Additional comments: Chest X-Ray 06/29/17 11:05 IMPRESSION: Normal chest x-ray D/ / Kiko Sorensen MD / Kiko Sorensen MD Interpreting Provider: Kiko Sorensen MD Chest CTA 06/29/17 14:14 IMPRESSION: No evidence of pulmonary embolism or acute pulmonary abnormality. Large hiatal hernia. Cholelithiasis. D/ / 06/29/2017 15:42:19 Virginia Neal MD / donna Interpreting Provider: Virginia Neal MD <Robb Encinas - Last Filed: 06/30/17 01:29> Date of Encounter: 06/29/17 Time of Encounter: 23:45 - Constitutional Constitutional: no chills, no fever(s), no night sweats - EENT Nose, mouth and throat: no nasal congestion, no sinus pressure, no sore throat - Cardiovascular Cardiovascular ROS IM: no chest pain, no palpitations - Respiratory Respiratory: cough, wheezing - Gastrointestinal Gastrointestinal: no diarrhea, no nausea, no vomiting - Genitourinary Genitourinary: no dysuria - Musculoskeletal Musculoskeletal ROS IM: no back pain, no muscle cramps, no myalgias - Integumentary Integumentary IM: no rash - Allergic/Immunologic Allergic/Immunologic: wheezing, no GI upset with certain foods - Constitutional Vitals: Temp Pulse Resp BP Pulse Ox 98.4 F 101 16 134/79 95 06/29/17 23:31 06/29/17 23:31 06/29/17 23:31 06/29/17 23:31 06/29/17 23:31 General appearance: Present: cooperative, mild distress, A&O X 3, pleasant - Eye Eye exam: Present: PERRL. Absent: scleral icterus - ENT ENT exam: Present: mucous membranes dry, normal exam - Neck Neck exam general surgery: Present: supple. Absent: lymphadenopathy, tenderness - Respiratory Respiratory exam: Present: prolonged expiratory phase, respiratory distress ( mild), wheezes. Absent: chest wall tenderness, rales, rhonchi - Cardiovascular Cardiovascular exam: Present: RRR, +S1, +S2 - GI/Abdominal GI/Abdominal exam: Present: soft. Absent: tenderness - Extremities Exam Extremities exam: Present: warm, radial pulses palpable and symmetrical. Absent : calf tenderness, pedal edema, tenderness - Back Exam Back exam: Absent: CVA tenderness (L), CVA tenderness (R) - Neurological Exam Neurological exam: Present: alert, oriented X3, no focal deficits - Psychiatric Psychiatric exam: Present: normal affect, normal mood - Skin Skin exam: Present: dry, warm. Absent: rash Internal Med - H&P Results - Labs CBC & Chem 7: 06/29/17 13:21 06/29/17 13:21 - Diagnostic Studies Chest x-ray Status: image reviewed by me (negative) - Attending Attestation I discussed the patient HO-CHUNK, PMH, ROS, lab data, and exam findings with Olesya Rocha CNP. I then saw and examined patient independently as well. Patient is audibly wheezing, coughing, and in some mild respiratory distress from an acute asthma exacerbation. She denies any fevers, chills, myalgias, or any other infectious symptomatology. I do not feel she needs antibiotics presently , and I agree with Olesya's treatment plan for acute asthma exacerbation. If she declines, however, and/or develops any fever, I would then have a low threshold to start antibiotics. I will order a Flu test on her given her acute asthma flare. Other than my comments above and noted exam findings, I agree with Olesya' s assessment and plan.
[2017-06-29] MEDS: Ipratropium/Albuterol Neb 3 ML IH SCH (23:10)
[2017-06-29] MEDS: methylPREDNISolone 125 MG/2 ML VIAL IVP SCH (23:53)
[2017-06-30] MEDS: Benzonatate 100 MG CAPSULE PO PRN ×2 (00:04→10:41)
[2017-06-30] MEDS: Albuterol 2.5 MG/3 ML NEBULIZER IH PRN (01:17)
[2017-06-30] MEDS: Ipratropium/Albuterol Neb 3 ML IH SCH ×6 (03:31→23:09)
[2017-06-30 04:17] LABS: Basophils % 0.2 %; Hematocrit 41.7 % (35.3-44.9); Hemoglobin 13.9 g/dL (11.5-15.4); Immature Granulocytes % 0.8 % (0-4); Lymphocytes # 0.3 K/mcL (0.6-4.6); Lymphocytes % 6.7 %; Mean Corpuscular HGB Conc 33.3 g/dL (31.6-35.5); Mean Corpuscular Hemoglobin 29.3 pg (28.0-33.3); Mean Corpuscular Volume 87.8 fL (83.0-100.0); Mean Platelet Volume 10.3 fL (9.4-12.4); Monocytes % 0.6 %; Neutrophils # 4.7 K/mcL (1.6-8.9); Platelet Count 191 K/mcL (140-400); Red Blood Count 4.75 M/mcL (3.82-4.97); Red Cell Distribution Width 13.1 % (11.5-14.5); Segmented Neutrophils % 91.7 %
[2017-06-30 04:21] LABS: 2009 H1N1 PCR NOT DETECTED (Not Detect); Influenza A PCR Negative (Negative); Influenza B PCR Negative (Negative)
[2017-06-30 04:47] LABS: BUN/Creatinine Ratio 27 (6-26); Blood Urea Nitrogen 20 mg/dL (8-23); Carbon Dioxide 21 mEq/L (23-29); Chloride 107 mEq/L (98-107); Glucose 209 mg/dL (70-105); Magnesium 1.7 mg/dL (1.6-2.6); Osmolality,Calculated 293 (280-300); Potassium 3.8 mEq/L (3.5-5.1); Sodium 137 mEq/L (136-145); eGFR For African Americans > 60 (> 60); eGFR For Non-African Americans > 60 (> 60)
[2017-06-30] MEDS: methylPREDNISolone 125 MG/2 ML VIAL IVP SCH ×3 (05:31→18:26)
[2017-06-30] MEDS: Metoprolol XL (24 HR) Succ 25 MG TAB.ER.24H PO SCH (10:13)
[2017-06-30] MEDS: *HR* Rivaroxaban 10 MG TABLET PO SCH (10:13)
[2017-06-30 13:42] LABS: Adenovirus Not Detected (Not Detect); Bordetella Pertussis Not Detected (Not Detect); Chlamydophila pneumoniae Not Detected (Not Detect); Coronavirus 229E Not Detected (Not Detect); Coronavirus HKU1 Not Detected (Not Detect); Coronavirus NL63 Not Detected (Not Detect); Coronavirus OC43 Not Detected (Not Detect); Human Metapneumovirus Not Detected (Not Detect); Human Rhinovirus/Enterovirus Not Detected (Not Detect); Influenza A Subtype 2009 H1 Not Detected (Not Detect); Influenza A Untypeable Not Detected (Not Detect); Influenza B Not Detected (Not Detect); Mycoplasma pneumoniae Not Detected (Not Detect); Parainfluenza Virus 1 Not Detected (Not Detect); Parainfluenza Virus 2 Not Detected (Not Detect); Parainfluenza Virus 3 Not Detected (Not Detect); Parainfluenza Virus 4 Not Detected (Not Detect); Respiratory Syncytial Virus Not Detected (Not Detect)
--- NOTE | 2017-06-30 14:01 | Internal Med Progress Note ---
<Francois Storey - Last Filed: 06/30/17 13:58> Date of Encounter: 06/30/17 Time of Encounter: 08:00 - Assessment and plan (1) Asthma exacerbation Current Visit: Yes Status: Acute Assessment and plan: Patient has been experiencing increasing shortness of breath and cough, wheezing for the past 2 weeks, shortness of breath and worsening. requiring oxygen supplementation; normally is not on oxygen. CXR and CT chest are negative for PE or pulmonary abnormality. Continue with oxygen titrated to maintain a strict 2 g 92% Continue with duo nebs IV Solu-Medrol 60 mg every 6 Qualifiers: Asthma severity: moderate Asthma persistence: unspecified Qualified Code( s): J45.901 - Unspecified asthma with (acute) exacerbation (2) DVT prophylaxis Current Visit: No Status: Acute Assessment and plan: Continue with home med Xarelto (3) Hx of deep venous thrombosis Current Visit: No Status: Acute Assessment and plan: Continue with Home med Xarelto (4) Dementia Current Visit: No Status: Chronic Assessment and plan: Patient is AOx3. Continue with home meds. Qualifiers: Dementia type: unspecified type Dementia behavioral disturbance: without behavioral disturbance Qualified Code(s): F03.90 - Unspecified dementia without behavioral disturbance - Time Spent With Patient 25 - 35 minutes - Subjective Interval history: 87F PMH asthma, dementia, prior PE on Xeralto admitted for worsening dypsnea with cough for last 2 weeks. Denies f/c/n/v/diarrhea. CTA negative for PE. Admits having albuterol at home but no intranasal steroids. Continues to wheeze and dysneic. - Constitutional Vitals: Temp Pulse Resp BP Pulse Ox 98 F 115 15 134/81 91 06/30/17 10:31 06/30/17 10:31 06/30/17 10:31 06/30/17 11:32 06/30/17 12:16 General appearance: Present: cooperative, mild distress, A&O X 3, pleasant - Head Head exam: Present: atraumatic, normocephalic - Eye Eye exam: Present: normal appearance - ENT ENT exam: Present: mucous membranes dry - Neck Neck exam general surgery: Present: full ROM, supple, trachea midline - Respiratory Respiratory exam: Present: decreased breath sounds. Absent: accessory muscle use, rales, rhonchi, wheezes - Cardiovascular Cardiovascular exam: Present: distant heart sounds, +S1, +S2. Absent: systolic murmur - GI/Abdominal GI/Abdominal exam: Present: normal bowel sounds, soft, no peritoneal signs. Absent: hepatomegaly, splenomegaly, tenderness - Extremities Exam Extremities exam: Present: full ROM, warm, radial pulses palpable and symmetrical - Neurological Exam Neurological exam: Present: alert, CN II-XII intact, oriented X3, no focal deficits. Absent: facial droop, speech deficit - Skin Skin exam: Present: dry, intact Internal Medicine: Result - Labs CBC & Chem 7: 06/30/17 03:16 06/30/17 03:16 Labs: Short CBC 06/30/17 Range/Units 03:16 WBC 5.1 (4.3-11.1) K/mcL Hgb 13.9 (11.5-15.4) g/dL Hct 41.7 (35.3-44.9) % Plt Count 191 (140-400) K/mcL Neutrophils # 4.7 (1.6-8.9) K/mcL BMP 06/30/17 03:16 Sodium 137 Potassium 3.8 Chloride 107 Carbon Dioxide 21 L BUN 20 Creatinine 0.75 Glucose 209 H Calcium 9.0 - ABG Interpretation ABG results: PT/INR, D-dimer PT 16.9 Seconds (9.4-12.1) H 06/29/17 13:21 Consult Discharge Plan - Plan Referrals: Chrissy Marie DO [Primary Care Provider] - <Barron Luo - Last Filed: 06/30/17 19:00> Date of Encounter: 06/30/17 - Constitutional Vitals: Temp Pulse Resp BP Pulse Ox 98.2 F 101 16 134/77 98 06/30/17 15:19 06/30/17 15:19 06/30/17 15:43 06/30/17 15:19 06/30/17 18:30 Internal Medicine: Result - Labs CBC & Chem 7: 06/30/17 03:16 06/30/17 03:16 Labs: Short CBC 06/30/17 Range/Units 03:16 WBC 5.1 (4.3-11.1) K/mcL Hgb 13.9 (11.5-15.4) g/dL Hct 41.7 (35.3-44.9) % Plt Count 191 (140-400) K/mcL Neutrophils # 4.7 (1.6-8.9) K/mcL BMP 06/30/17 03:16 Sodium 137 Potassium 3.8 Chloride 107 Carbon Dioxide 21 L BUN 20 Creatinine 0.75 Glucose 209 H Calcium 9.0 - ABG Interpretation ABG results: PT/INR, D-dimer PT 16.9 Seconds (9.4-12.1) H 06/29/17 13:21 - Attending Attestation I conducted a face to face diagnostic evaluation of this patient and my medical decision-making was reviewed with the Resident Physician. I agree with the documented findings, disposition and treatment plan as described except to the extent set forth below: Patient is in no acute distress, speaking in full sentences. On physical exam her lung auscultation reveals bilateral expiratory wheezes. Diminished breath sounds. Plan: Continue IV steroids. Inhaled bronchodilators. No need for antibiotic. Barron Luo MD
[2017-06-30] MEDS ORDERED: Benzonatate 100 MG CAPSULE PO PRN (17:02)
[2017-07-01] MEDS ORDERED: Haloperidol Lactate 5 MG/ML VIAL IVP ONE (00:54)
[2017-07-01] MEDS ORDERED: Haloperidol Lactate 5 MG/ML VIAL ONE (00:55)
[2017-07-01] MEDS: methylPREDNISolone 125 MG/2 ML VIAL IVP SCH ×3 (01:07→12:35)
[2017-07-01] MEDS: Ipratropium/Albuterol Neb 3 ML IH SCH ×4 (03:26→16:48)
[2017-07-01 04:56] LABS: Hematocrit 39.4 % (35.3-44.9); Hemoglobin 13.2 g/dL (11.5-15.4); Mean Corpuscular HGB Conc 33.5 g/dL (31.6-35.5); Mean Corpuscular Hemoglobin 29.5 pg (28.0-33.3); Mean Corpuscular Volume 87.9 fL (83.0-100.0); Mean Platelet Volume 10.2 fL (9.4-12.4); Platelet Count 199 K/mcL (140-400); Red Blood Count 4.48 M/mcL (3.82-4.97); Red Cell Distribution Width 13.4 % (11.5-14.5)
[2017-07-01 05:11] LABS: BUN/Creatinine Ratio 32 (6-26); Blood Urea Nitrogen 26 mg/dL (8-23); Calcium 9.2 mg/dL (8.6-10.3); Carbon Dioxide 22 mEq/L (23-29); Chloride 106 mEq/L (98-107); Glucose 144 mg/dL (70-105); Osmolality,Calculated 289 (280-300); Potassium 3.9 mEq/L (3.5-5.1); Sodium 136 mEq/L (136-145); eGFR For African Americans > 60 (> 60); eGFR For Non-African Americans > 60 (> 60)
--- NOTE | 2017-07-01 09:02 | Internal Med Progress Note ---
Date of Encounter: 07/01/17 Time of Encounter: 08:40 - Assessment and plan (1) Asthma exacerbation Current Visit: Yes Status: Acute Qualifiers: Asthma severity: moderate Asthma persistence: unspecified Qualified Code( s): J45.901 - Unspecified asthma with (acute) exacerbation (2) DVT prophylaxis Current Visit: No Status: Acute (3) Hx of deep venous thrombosis Current Visit: No Status: Acute (4) Dementia Current Visit: No Status: Chronic Qualifiers: Dementia type: unspecified type Dementia behavioral disturbance: without behavioral disturbance Qualified Code(s): F03.90 - Unspecified dementia without behavioral disturbance - Subjective Interval history: 87F PMH asthma, dementia, prior PE on Xeralto admitted for worsening dypsnea with cough for last 2 weeks. Denies f/c/n/v/chest pain, abdominal pain, and diarrhea. CTA negative for PE. Admits having albuterol at home but no intranasal steroids. Continues to wheeze and dysneic. Per nurse, patient had episode of confusion and agitation last night and received 5mg of Haldol. AOx2, not oriented to time. Has no further complaints. - Constitutional Vitals: Temp Pulse Resp BP Pulse Ox 97.6 F 105 18 165/74 93 07/01/17 07:11 07/01/17 07:11 07/01/17 07:49 07/01/17 07:11 07/01/17 07:49 General appearance: Present: cooperative, mild distress, A&O X 3, pleasant - Head Head exam: Present: atraumatic, normocephalic - Eye Eye exam: Present: normal appearance - ENT ENT exam: Present: mucous membranes dry - Neck Neck exam general surgery: Present: supple, trachea midline. Absent: lymphadenopathy - Respiratory Respiratory exam: Present: wheezes (bilateral) Additional comments: Constant cough - Cardiovascular Cardiovascular exam: Present: +S1, +S2, systolic murmur (systemic click ) - GI/Abdominal GI/Abdominal exam: Present: normal bowel sounds, soft, no peritoneal signs - Expanded GI/Abdominal Exam GI/Abdominal exam expanded: Absent: Tucker's sign, Rovsing's sign - Extremities Exam Extremities exam: Present: full ROM, warm, radial pulses palpable and symmetrical - Neurological Exam Neurological exam: Present: alert, no focal deficits. Absent: oriented X3 ( Oriented to name and place, but not to time. ), facial droop, speech deficit - Skin Skin exam: Present: dry, warm. Absent: rash Internal Medicine: Result - Labs CBC & Chem 7: 07/01/17 04:02 07/01/17 04:02 Labs: Short CBC 07/01/17 Range/Units 04:02 WBC 15.1 H D (4.3-11.1) K/mcL Hgb 13.2 (11.5-15.4) g/dL Hct 39.4 (35.3-44.9) % Plt Count 199 (140-400) K/mcL BMP 07/01/17 04:02 Sodium 136 Potassium 3.9 Chloride 106 Carbon Dioxide 22 L BUN 26 H Creatinine 0.81 Glucose 144 H Calcium 9.2 - ABG Interpretation ABG results: PT/INR, D-dimer PT 16.9 Seconds (9.4-12.1) H 06/29/17 13:21 Consult Discharge Plan - Plan Referrals: Chrissy Marie DO [Primary Care Provider] -
[2017-07-01] MEDS: *HR* Rivaroxaban 10 MG TABLET PO SCH (09:15)
[2017-07-01] MEDS: Metoprolol XL (24 HR) Succ 25 MG TAB.ER.24H PO SCH (09:15)
--- NOTE | 2017-07-01 13:56 | Discharge Summary ---
<Francois Storey - Last Filed: 07/01/17 17:38> Date of Encounter: 07/01/17 Time of Encounter: 10:00 - Discharge Diagnosis (1) Asthma exacerbation Priority: Primary Status: Acute Qualifiers: Asthma severity: moderate Asthma persistence: unspecified Qualified Code( s): J45.901 - Unspecified asthma with (acute) exacerbation (2) Hx of deep venous thrombosis Priority: Secondary Status: Acute (3) Dementia Priority: Secondary Status: Chronic Qualifiers: Dementia type: unspecified type Dementia behavioral disturbance: without behavioral disturbance Qualified Code(s): F03.90 - Unspecified dementia without behavioral disturbance - Discharge Medications Prescriptions: Budesonide/Formoterol 160/4.5 [Symbicort 160/4.5] 1 puff IH BIDR #1 hfa.aer.ad PredniSONE [Deltasone] 10 mg PO DAILY 6 Days #18 tablet Home Medications: Albuterol Sulfate [Proair Hfa] 2 puff IH Q4H PRN 10/23/15 [History] Donepezil [Aricept] 5 mg PO DAILY 10/23/15 [History] Albuterol Neb [AccuNeb] 1.25 mg IH Q12H 07/21/16 [History] Rivaroxaban [Xarelto] 20 mg PO DAILY #30 tablet 09/01/16 [Rx] Benzonatate [Tessalon] 100 mg PO TID PRN #30 capsule 10/09/16 [Rx] Metoprolol XL (24 HR) Succ [Toprol Xl] 25 mg PO DAILY 06/29/17 [History] Budesonide/Formoterol 160/4.5 [Symbicort 160/4.5] 1 puff IH BIDR #1 hfa.aer.ad 07/01/17 [Rx] PredniSONE [Deltasone] 10 mg PO DAILY 6 Days #18 tablet 07/01/17 [Rx] Allergies/Adverse Reactions: 3 Allergy/AdvReac Type Severity Reaction Status Date / Time cefdinir [From Omnicef] Allergy Hypertensio Verified 10/09/16 21:12 n Date of admission: 06/29/17 16:50 Primary care physician: Javad Ivey Discharging clinician: Francois Storey Anticipated date of discharge: 07/01/17 - Patient Status Disposition: Home, Self-Care Condition: Good Functional capacity at discharge: independent ambulation Overall status at discharge: patient is back to baseline - Discharge Instructions Instructions: Asthma (DC) Follow Up With: Chrissy Marie DO [Primary Care Provider] - Additional Instructions: Follow-up appointments: If there is not an appointment listed below, please call your physician and schedule a follow-up appointment. If you have congestive heart failure and your symptoms return, make an appointment with your physician. Medication List: Carry an up to date list of medications you are taking at all time. We have given you an updated medication list including any new medications that you have been prescribed. Please provide that list to your primary provider Symptoms: If your condition changes or you experience any of the following symptoms, notify your physician immediately: Unusual or worsening pain, fever, persistent nausea and vomiting, bleeding, increase in swelling (especially in your legs), sudden weight gain, extreme dizziness, chest pain, increased drainage or redness from a wound or incision. Go to the emergency department if you experience a problem with breathing. Weights: If you have a history of swelling or shortness of breath, weigh yourself daily and notify your physician if you have a weight gain of two or more pounds in one day or 5 or more pounds in a week. If you experience any of the warning signs for stroke: Sudden numbness or weakness of the face, arm or leg; especially on one side of the body, sudden confusion, trouble speaking or understanding, sudden trouble seeing in one or both eyes, sudden trouble walking, dizziness, loss of balance or coordination, sudden sever headache with no cause; Call 911 or go to the emergency room. Stroke is a medical emergency. Some risk factors for stroke: Age, cigarette smoking, diabetes, excessive alcohol consumption, family history , high blood pressure, overweight, physical inactivity, prior stroke, heart attack, diagnosis of carotid artery stenosis or other artery disease. If you smoke, STOP: Smoking or tobacco use significantly increases your risk of heart and lung disease. Your chance of disease greatly increases if you continue to smoke. For more information, call the [employer] tobacco quit line for smoking cessation QUIT-NOW ( ) - Diet and Activity Diet: advance to your usual diet Hospital course: Ms. Morales is a 87 year old female with PMHx of asthma, dementia, DVT, PE on Xarelto presented for worsening dyspnea for 2 weeks with cough despite breathing treatments. RIP was negative. CTA was also negative for PE. She was admitted for asthma exacerbation on 06/29/17 and was started on albuterol inhaler and solu-medrol and symptoms improved on day 1. She continued to demonstrate wheezing and dypsnea and was kept for monitoring. Patient's wheezing , cough, and shortness of breath have improved further today. She is alert and oriented to person and place but not to time. Her family and the patient herself reports return to baseline. Patient is to be discharged with symbicort 2puffs as needed, prednisone taper, and home oxygen. Time spent discussing smoking cessation with patient: 3 to 10 minutes - Time Spent with Patient Total time spent providing and/or coordinating discharge services: Greater than 30 minutes - Constitutional Vitals: Temp Pulse Resp BP Pulse Ox 98.2 F 89 16 154/91 95 07/01/17 11:49 07/01/17 11:49 07/01/17 12:32 07/01/17 11:49 07/01/17 12:32 General appearance: Present: cooperative, mild distress, A&O X 3, pleasant - Head Head exam: Present: atraumatic, normocephalic - Eye Eye exam: Present: normal appearance - ENT ENT exam: Present: mucous membranes moist, normal exam - Neck Neck exam general surgery: Present: full ROM, supple, trachea midline - Respiratory Respiratory exam: Present: CTAB. Absent: accessory muscle use, wheezes - Cardiovascular Cardiovascular exam: Present: RRR, +S1, +S2 - GI/Abdominal GI/Abdominal exam: Present: normal bowel sounds, soft. Absent: guarding, tenderness - Extremities Exam Extremities exam: Present: full ROM, warm, radial pulses palpable and symmetrical - Neurological Exam Neurological exam: Present: alert, CN II-XII intact, oriented X3, no focal deficits. Absent: facial droop, speech deficit - Skin Skin exam: Present: dry, intact, warm <Barron Luo - Last Filed: 07/01/17 18:21> Date of Encounter: 07/01/17 Date of admission: 06/29/17 16:50 Primary care physician: Javad Ivey Hospital course: Ms. Morales is a 87 year old female - Time Spent with Patient Total time spent providing and/or coordinating discharge services: - Constitutional Vitals: Temp Pulse Resp BP Pulse Ox 97.5 F L 94 18 141/81 93 07/01/17 15:48 07/01/17 15:48 07/01/17 15:48 07/01/17 15:48 07/01/17 15:48 - Attending Attestation I conducted a face to face diagnostic evaluation of this patient and my medical decision-making was reviewed with the Resident Physician. I agree with the documented findings, disposition and treatment plan as described except to the extent set forth below: Patient is awake alert oriented in no acute distress, speaking in full sentences. Lungs sounds are clear bilaterally, no wheezes. Abdomen is soft. Heart is regular. Plan: Discharge home with home oxygen, steroid taper and inhaled bronchodilators. Additional discharge diagnosis: Acute hypoxic respiratory failure present on admission. Barron Luo MD
[2017-07-01 15:50] VITALS: BP 141/81
--- NOTE | 2017-07-02 06:37 | Electrocardiograph Report ---
[place] [id number] Test Date: 2017-06-29 Pat Name: Jackie Morales Department: 103 Room: 3B21 Gender: F Plumber Supervisor: CONNIE : [id number] Requested By: Elmira Perez Order Number: [id number] Reading MD: Wilfredo Flaherty MD Measurements Intervals [place] Rate: 73 P: 69 AK: 188 QRS: 38 QRSD: 92 T: 61 QT: 385 QTc: 411 Interpretive Statements SINUS RHYTHM Electronically Signed On 07-02-2017 6:35:27 EST by Wilfredo Flaherty MD
== END 2017-07-01 16:53 | disposition home or self-care (01) ==
LOC: 3ANU 10:37 → EMEROO 10:37 → SUATTDRO 16:50 → 3ANU 17:33 → 3BNU 23:44
PROVIDERS: ADMIT Hospitalist; ATTEND Internal Medicine

== ENCOUNTER 2018-06-13 12:46 | Inpatient (IN) ==
--- NOTE | 2018-06-13 13:05 | Emergency Department Note ---
Disposition Clinical Impression: Hypoxia, Reactive airway disease, Dyspnea Disposition: Admitted As Inpatient Condition: Fair General Adult HPI - General Chief complaint: ED Shortness of Breath/Dyspnea Stated complaint: pnuemonia Time Seen by Provider: 06/13/18 12:54 - Related Data Home Medications Medication Instructions Recorded Confirmed Albuterol Neb [AccuNeb] 1.25 mg IH Q12H PRN 06/13/18 06/13/18 Fluticasone/Salmeterol [Advair 1 puff IH BID 06/13/18 06/13/18 250-50 Diskus] Metoprolol Succinate [Toprol Xl] 12.5 mg PO DAILY 06/13/18 06/13/18 RX: Benzonatate [Tessalon] 200 mg PO TID PRN 06/13/18 06/13/18 RX: Donepezil [Aricept] 10 mg PO DAILY 06/13/18 06/13/18 RX: Quetiapine Fumarate [Seroquel] 25 mg PO HS 06/13/18 06/13/18 levoFLOXacin [Levofloxacin] 500 mg PO DAILY 06/13/18 06/13/18 predniSONE [PredniSONE] 40 mg PO DAILY 06/13/18 06/13/18 Allergies Allergy/AdvReac Type Severity Reaction Status Date / Time cefdinir [From Omnicef] AdvReac Hypertensio Verified 06/13/18 14:25 n Past Medical History - Past Medical History Medical history: Reports: asthma, DVT, dementia, hypertension Surgical history: Reports: hysterectomy Psychiatric history: Reports: anxiety - Social History Smoking Status: Never smoker Smokeless Tobacco Status: No Alcohol use: Reports: none Drug use: Reports: none Course Vital Signs Temperature 98.3 F 06/13/18 12:51 Pulse Rate 85 06/13/18 12:51 Respiratory Rate 22 06/13/18 12:51 Blood Pressure 149/83 06/13/18 12:51 O2 Sat by Pulse Oximetry 98 06/13/18 12:51 Temperature 98.7 F 06/13/18 19:59 Pulse Rate 101 06/13/18 19:59 Respiratory Rate 17 06/13/18 22:07 Blood Pressure 132/82 06/13/18 19:59 O2 Sat by Pulse Oximetry 98 06/13/18 22:07 Oxygen Delivery Oxygen Delivery Nasal Cannula Medical Decision Making - Lab Data Result diagrams: 06/13/18 13:03 06/13/18 13:03 Lab Results 06/13/18 06/13/18 06/13/18 Range/Units 13:03 13:03 13:03 WBC 8.2 (4.3-11.1) K/mcL RBC 4.87 (3.82-4.97) M/mcL Hgb 14.4 (11.5-15.4) g/dL Hct 42.8 (35.3-44.9) % MCV 87.9 (83.0-100.0) fL MCH 29.6 (28.0-33.3) pg MCHC 33.6 (31.6-35.5) g/dL RDW 13.2 (11.5-14.5) % Plt Count 152 (140-400) K/mcL MPV 10.0 (9.4-12.4) fL Immature Gran % 0.7 (0-4) % Seg Neutrophils % 86.7 % Lymphocytes % 7.7 % Monocytes % 4.8 % Eosinophils % 0.0 % Basophils % 0.1 % Neutrophils # 7.1 (1.6-8.9) K/mcL Lymphocytes # 0.6 (0.6-4.6) K/mcL Monocytes # 0.4 (0.0-1.3) K/mcL Eosinophils # 0.0 (0.0-0.6) K/mcL Basophils # 0.0 (0.0-0.2) K/mcL PT 12.3 H (9.4-12.1) Seconds INR 1.1 Sodium 138 (136-145) mEq/L Potassium 3.9 (3.5-5.1) mEq/L Chloride 103 (98-107) mEq/L Carbon Dioxide 25 (23-29) mEq/L BUN 21 (8-23) mg/dL Creatinine 0.93 (0.60-1.20) mg/dL Est GFR ( Amer) > 60 (> 60) Est GFR (Non-Af Amer) 57 L (> 60) BUN/Creatinine Ratio 23 (6-26) Glucose 86 (70-105) mg/dL Calculated Osmolality 288 (280-300) Lactic Acid (0.5-2.2) mmol/L Calcium 8.8 (8.6-10.3) mg/dL Total Bilirubin 0.8 (0.3-1.0) mg/dL Direct Bilirubin 0.2 (0.0-0.2) mg/dL Indirect Bilirubin 0.6 (0.0-1.2) mg/dL AST 23 (13-39) Units/L ALT 13 (7-52) Units/L Alkaline Phosphatase 71 (34-104) Units/L Troponin I < 0.03 (< 0.04) ng/mL B-Natriuretic Peptide (Less than 100) pg/mL Serum Total Protein 6.4 (6.4-8.9) g/dL Albumin 4.1 (3.5-5.7) g/dL Globulin 2.3 L (2.4-3.5) g/dL Albumin/Globulin Ratio 1.8 (1.1-2.2) 06/13/18 06/13/18 Range/Units 13:03 13:07 WBC (4.3-11.1) K/mcL RBC (3.82-4.97) M/mcL Hgb (11.5-15.4) g/dL Hct (35.3-44.9) % MCV (83.0-100.0) fL MCH (28.0-33.3) pg MCHC (31.6-35.5) g/dL RDW (11.5-14.5) % Plt Count (140-400) K/mcL MPV (9.4-12.4) fL Immature Gran % (0-4) % Seg Neutrophils % % Lymphocytes % % Monocytes % % Eosinophils % % Basophils % % Neutrophils # (1.6-8.9) K/mcL Lymphocytes # (0.6-4.6) K/mcL Monocytes # (0.0-1.3) K/mcL Eosinophils # (0.0-0.6) K/mcL Basophils # (0.0-0.2) K/mcL PT (9.4-12.1) Seconds INR Sodium (136-145) mEq/L Potassium (3.5-5.1) mEq/L Chloride (98-107) mEq/L Carbon Dioxide (23-29) mEq/L BUN (8-23) mg/dL Creatinine (0.60-1.20) mg/dL Est GFR ( Amer) (> 60) Est GFR (Non-Af Amer) (> 60) BUN/Creatinine Ratio (6-26) Glucose (70-105) mg/dL Calculated Osmolality (280-300) Lactic Acid 2.2 (0.5-2.2) mmol/L Calcium (8.6-10.3) mg/dL Total Bilirubin (0.3-1.0) mg/dL Direct Bilirubin (0.0-0.2) mg/dL Indirect Bilirubin (0.0-1.2) mg/dL AST (13-39) Units/L ALT (7-52) Units/L Alkaline Phosphatase (34-104) Units/L Troponin I (< 0.04) ng/mL B-Natriuretic Peptide 235 H (Less than 100) pg/mL Serum Total Protein (6.4-8.9) g/dL Albumin (3.5-5.7) g/dL Globulin (2.4-3.5) g/dL Albumin/Globulin Ratio (1.1-2.2) Attestation Statement - Attestation Attestation: I examined this patient and my medical decision-making was reviewed with the R duyen Physician. I agree with the documented findings, disposition and treatment plan as described except to the extent set forth below. [id number] time provided Patient arrives with increasing dyspnea and cough. She is not oxygen dependent at baseline. Mild tachypnea and minimally productive cough identified on exam. Triage note and vitals reviewed by me. The patient was seen at an urgent care and prescribed levofloxacin and prednisone
[2018-06-13] MEDS ORDERED: Ipratropium/Albuterol Neb 3 ML IH ONE (13:09)
[2018-06-13] MEDS ORDERED: methylPREDNISolone 125 MG/2 ML VIAL IVP ONE (13:10)
--- NOTE | 2018-06-13 13:13 | Emergency Department Note ---
Disposition Clinical Impression: Hypoxia Reactive airway disease Qualifiers: Asthma severity: unspecified severity Asthma persistence: unspecified Asthma c omplication type: uncomplicated Qualified Code(s): J45.909 - Unspecified asthma, uncomplicated Dyspnea Qualifiers: Dyspnea type: unspecified Qualified Code(s): R06.00 - Dyspnea, unspecified Disposition: Admitted As Inpatient Condition: Fair Time of Disposition: 15:31 General Adult HPI - General Chief complaint: ED Shortness of Breath/Dyspnea Stated complaint: pnuemonia Time Seen by Provider: 06/13/18 12:54 Source: patient Mode of arrival: ambulatory Limitations: no limitations Nursing Notes Reviewed: Yes Vital Signs Reviewed: Yes - History of Present Illness HPI Narrative: 88-year-old female with a history of hypertension, DVT presents for evaluation of cough and shortness of breath. Patient's in the care of family. States symptoms started approximately 2 days ago. Notes that she has had progressive dyspnea with a nonproductive cough. Patient also requiring some oxygen. States she does not typically wear oxygen but does have available at baseline. Patient states that she has a history of asthma. Does have breathing treatments over home. Also was seen in urgent care and started on Levaquin and prednisone. Patient denies abdominal pain. No chest pain. No nausea vomiting or diaphoresis. No history of heart attacks or stents. Not currently on any anticoagulation. Patient does have a significant secondhand smoke history. - Related Data Home Medications Medication Instructions Recorded Confirmed Albuterol Neb [AccuNeb] 1.25 mg IH Q12H PRN 06/13/18 06/13/18 Benzonatate [Tessalon] 200 mg PO TID PRN 06/13/18 06/13/18 Donepezil [Aricept] 10 mg PO DAILY 06/13/18 06/13/18 Fluticasone/Salmeterol [Advair 1 puff IH BID 06/13/18 06/13/18 250-50 Diskus] Metoprolol Succinate [Toprol Xl] 12.5 mg PO DAILY 06/13/18 06/13/18 Quetiapine Fumarate [Seroquel] 25 mg PO HS 06/13/18 06/13/18 levoFLOXacin [Levofloxacin] 500 mg PO DAILY 06/13/18 06/13/18 predniSONE [PredniSONE] 40 mg PO DAILY 06/13/18 06/13/18 Allergies Allergy/AdvReac Type Severity Reaction Status Date / Time cefdinir [From Omnicef] AdvReac Hypertensio Verified 06/13/18 14:25 n All systems ED: reviewed and negative except as stated. Constitutional: Denies: fever Cardiovascular: Denies: chest pain Respiratory: Reports: cough, dyspnea. Denies: sputum production Gastrointestinal: Denies: abdominal pain, nausea, vomiting Past Medical History - Past Medical History Source: patient Medical history: Reports: asthma, DVT, dementia, hypertension Surgical history: Reports: hysterectomy Psychiatric history: Reports: anxiety - Social History Smoking Status: Never smoker Smokeless Tobacco Status: No Alcohol use: Reports: none Drug use: Reports: none Physical Exam - General Limitations: no limitations General appearance: alert, in no apparent distress - Head Head exam: atraumatic, normocephalic, normal inspection - Eye Eye exam: Present: normal appearance, PERRL, EOMI - ENT ENT exam: normal exam, mucous membranes moist - Neck Neck exam: Present: normal inspection, trachea midline - Chest Chest inspection: Present: normal inspection, symmetric chest wall rise - Respiratory Respiratory exam: Present: wheezes (Bibasal or expiratory), accessory muscle use, prolonged expiratory phase, other (Coarse throughout) - Cardiovascular Cardiovascular exam: Present: regular rate, normal rhythm. Absent: systolic murmur - Abdominal Exam Abdominal exam: Present: soft, Non-Tender - Extremities Exam Extremities exam: Present: normal inspection. Absent: pedal edema - Expanded Lower Extremity Exam Neurovascular/Tendon exam: Present: normal capillary refill - Back Exam Back exam: Present: normal inspection - Neurological Exam Neurological exam: Present: alert, oriented X3, CN II-XII intact - Skin Skin exam: Present: warm Course Course Narrative: Patient seen and examined. Patient has increasing work of breathing. Patient's lung exam reveals wheezing and rhonchi. Will treat with aerosol steroids cardiopulmonary evaluation. Disposition likely admission. - Reevaluation(s) Reevaluation #1: Patient seen and examined. Given the patient's history of PE DVT in the past not currently anticoagulated with agreeable hypoxia as well as unremarkable chest x-ray patient with a CTa chest. Time: 13:53 Reevaluation #2: Patient seen and examined. Patient's resting comfortably. Updated on plan of care. Time: 15:30 Vital Signs Temperature 98.3 F 06/13/18 12:51 Pulse Rate 85 06/13/18 12:51 Respiratory Rate 22 06/13/18 12:51 Blood Pressure 149/83 06/13/18 12:51 O2 Sat by Pulse Oximetry 98 06/13/18 12:51 Temperature 98.3 F 06/13/18 13:01 Pulse Rate 101 06/13/18 15:08 Respiratory Rate 19 06/13/18 15:08 Blood Pressure 149/65 06/13/18 15:08 O2 Sat by Pulse Oximetry 97 06/13/18 15:08 Oxygen Delivery Oxygen Delivery Room Air Medical Decision Making - MDM Narrative Medical decision making narrative: Patient presents for concerns of hypoxia and shortness of breath. Patient's had symptom onset over the past few days. Patient does have a history of "asthma". Significant history of secondhand smoke. Does have oxygen available when necessary at home however the patient does not wear oxygen at baseline. Patient was requiring oxygen in the ED. Lungs reveal scattered wheeze with rhonchi. Patient was treated with aerosol steroids. Patient does have a history of PE and a CT angiogram of the chest was obtained shows no evidence of PE. Patient will be admitted for continued cardiopulmonary evaluation monitoring. - Medical Records Medical records reviewed: Yes I reviewed the patient's medical records. 11/28 Impressions: LVEF 65%. Normal LV chamber size, wall thickness and function. Mild left ventricular diastolic dysfunction. Normal right ventricular structure and function. Moderately calcified aortic valve leaflets. Mild aortic stenosis. Mean gradient 14 mmHg. Mild mitral regurgitation. Mild pulmonary hypertension. - Lab Data Lab results reviewed: Yes I reviewed the patient's lab results. Result diagrams: 06/13/18 13:03 06/13/18 13:03 Lab Results 06/13/18 06/13/18 06/13/18 Range/Units 13:03 13:03 13:03 WBC 8.2 (4.3-11.1) K/mcL RBC 4.87 (3.82-4.97) M/mcL Hgb 14.4 (11.5-15.4) g/dL Hct 42.8 (35.3-44.9) % MCV 87.9 (83.0-100.0) fL MCH 29.6 (28.0-33.3) pg MCHC 33.6 (31.6-35.5) g/dL RDW 13.2 (11.5-14.5) % Plt Count 152 (140-400) K/mcL MPV 10.0 (9.4-12.4) fL Immature Gran % 0.7 (0-4) % Seg Neutrophils % 86.7 % Lymphocytes % 7.7 % Monocytes % 4.8 % Eosinophils % 0.0 % Basophils % 0.1 % Neutrophils # 7.1 (1.6-8.9) K/mcL Lymphocytes # 0.6 (0.6-4.6) K/mcL Monocytes # 0.4 (0.0-1.3) K/mcL Eosinophils # 0.0 (0.0-0.6) K/mcL Basophils # 0.0 (0.0-0.2) K/mcL PT 12.3 H (9.4-12.1) Seconds INR 1.1 Sodium 138 (136-145) mEq/L Potassium 3.9 (3.5-5.1) mEq/L Chloride 103 (98-107) mEq/L Carbon Dioxide 25 (23-29) mEq/L BUN 21 (8-23) mg/dL Creatinine 0.93 (0.60-1.20) mg/dL Est GFR ( Amer) > 60 (> 60) Est GFR (Non-Af Amer) 57 L (> 60) BUN/Creatinine Ratio 23 (6-26) Glucose 86 (70-105) mg/dL Calculated Osmolality 288 (280-300) Lactic Acid (0.5-2.2) mmol/L Calcium 8.8 (8.6-10.3) mg/dL Total Bilirubin 0.8 (0.3-1.0) mg/dL Direct Bilirubin 0.2 (0.0-0.2) mg/dL Indirect Bilirubin 0.6 (0.0-1.2) mg/dL AST 23 (13-39) Units/L ALT 13 (7-52) Units/L Alkaline Phosphatase 71 (34-104) Units/L Troponin I < 0.03 (< 0.04) ng/mL B-Natriuretic Peptide (Less than 100) pg/mL Serum Total Protein 6.4 (6.4-8.9) g/dL Albumin 4.1 (3.5-5.7) g/dL Globulin 2.3 L (2.4-3.5) g/dL Albumin/Globulin Ratio 1.8 (1.1-2.2) 06/13/18 06/13/18 Range/Units 13:03 13:07 WBC (4.3-11.1) K/mcL RBC (3.82-4.97) M/mcL Hgb (11.5-15.4) g/dL Hct (35.3-44.9) % MCV (83.0-100.0) fL MCH (28.0-33.3) pg MCHC (31.6-35.5) g/dL RDW (11.5-14.5) % Plt Count (140-400) K/mcL MPV (9.4-12.4) fL Immature Gran % (0-4) % Seg Neutrophils % % Lymphocytes % % Monocytes % % Eosinophils % % Basophils % % Neutrophils # (1.6-8.9) K/mcL Lymphocytes # (0.6-4.6) K/mcL Monocytes # (0.0-1.3) K/mcL Eosinophils # (0.0-0.6) K/mcL Basophils # (0.0-0.2) K/mcL PT (9.4-12.1) Seconds INR Sodium (136-145) mEq/L Potassium (3.5-5.1) mEq/L Chloride (98-107) mEq/L Carbon Dioxide (23-29) mEq/L BUN (8-23) mg/dL Creatinine (0.60-1.20) mg/dL Est GFR ( Amer) (> 60) Est GFR (Non-Af Amer) (> 60) BUN/Creatinine Ratio (6-26) Glucose (70-105) mg/dL Calculated Osmolality (280-300) Lactic Acid 2.2 (0.5-2.2) mmol/L Calcium (8.6-10.3) mg/dL Total Bilirubin (0.3-1.0) mg/dL Direct Bilirubin (0.0-0.2) mg/dL Indirect Bilirubin (0.0-1.2) mg/dL AST (13-39) Units/L ALT (7-52) Units/L Alkaline Phosphatase (34-104) Units/L Troponin I (< 0.04) ng/mL B-Natriuretic Peptide 235 H (Less than 100) pg/mL Serum Total Protein (6.4-8.9) g/dL Albumin (3.5-5.7) g/dL Globulin (2.4-3.5) g/dL Albumin/Globulin Ratio (1.1-2.2) - Radiology Data Radiology results reviewed: Yes I reviewed the patient's radiology results. Chest X-Ray 06/13/18 13:03 IMPRESSION: No acute cardiopulmonary process. D/ / Virginia Neal MD / Virginia Neal MD Interpreting Provider: Virginia Neal MD Chest X-Ray 06/13/18 13:03 IMPRESSION: No acute cardiopulmonary process. D/ / Virginia Neal MD / Virginia Neal MD Interpreting Provider: Virginia Neal MD Chest CTA 06/13/18 13:47 IMPRESSION: No evidence of pulmonary embolism or acute pulmonary abnormality. Large hiatal hernia. Cholelithiasis. Low-attenuation lesion to the right thyroid lobe measuring 2.2 cm. Recommend nonemergent thyroid ultrasound. D/ / Sergio Beaver MD / Sergio Beaver MD Interpreting Provider: Sergio Beaver MD - EKG Data EKG #1 EKG attestation: Yes I reviewed and interpreted this EKG. EKG shows normal: sinus rhythm Rate: normal Rhythm: NSR [place]/QRS: normal P waves: JUSTIN Interpretation: no acute changes, nonspecific ST-T wave changes S.B.A.RKe - S.Dustin.William Situation: Demographics Background: Presenting Complaint Assessment: Vital Signs, Course and respsone to treatment, Patient/Family Expect ation Recommendation: Barrier(s) to disposition, Recommendation based on pending studies, treatments, or consults S.B.ARianna Report Given to: Hospitalist Lidia Lehman Time: 15:07
[2018-06-13 13:20] LABS: Basophils % 0.1 %; Hematocrit 42.8 % (35.3-44.9); Hemoglobin 14.4 g/dL (11.5-15.4); Immature Granulocytes % 0.7 % (0-4); Lymphocytes # 0.6 K/mcL (0.6-4.6); Lymphocytes % 7.7 %; Mean Corpuscular HGB Conc 33.6 g/dL (31.6-35.5); Mean Corpuscular Hemoglobin 29.6 pg (28.0-33.3); Mean Corpuscular Volume 87.9 fL (83.0-100.0); Monocytes # 0.4 K/mcL (0.0-1.3); Monocytes % 4.8 %; Neutrophils # 7.1 K/mcL (1.6-8.9); Platelet Count 152 K/mcL (140-400); Red Blood Count 4.87 M/mcL (3.82-4.97); Red Cell Distribution Width 13.2 % (11.5-14.5); Segmented Neutrophils % 86.7 %
[2018-06-13 13:29] LABS: INR 1.1; Prothrombin Time 12.3 Seconds (9.4-12.1)
[2018-06-13 13:42] LABS: Troponin I < 0.03 ng/mL (< 0.04)
[2018-06-13 13:44] LABS: Alanine Aminotransferase 13 Units/L (7-52); Albumin 4.1 g/dL (3.5-5.7); Albumin/Globulin Ratio 1.8 (1.1-2.2); Alkaline Phosphatase 71 Units/L (34-104); Aspartate Amino Transferase 23 Units/L (13-39); BUN/Creatinine Ratio 23 (6-26); Bilirubin,Direct 0.2 mg/dL (0.0-0.2); Bilirubin,Indirect 0.6 mg/dL (0.0-1.2); Bilirubin,Total 0.8 mg/dL (0.3-1.0); Blood Urea Nitrogen 21 mg/dL (8-23); Calcium 8.8 mg/dL (8.6-10.3); Carbon Dioxide 25 mEq/L (23-29); Chloride 103 mEq/L (98-107); Globulin 2.3 g/dL (2.4-3.5); Glucose 86 mg/dL (70-105); Osmolality,Calculated 288 (280-300); Potassium 3.9 mEq/L (3.5-5.1); Sodium 138 mEq/L (136-145); Total Protein 6.4 g/dL (6.4-8.9); eGFR For Non-African Americans 57 (> 60)
[2018-06-13] MEDS ORDERED: Isovue-370 500 ML INFUS..BTL IV ONE (13:47)
[2018-06-13] MEDS ORDERED: *HR* HYDROcodone/Acet 5/325 mg TABLET PO PRN (16:18)
[2018-06-13] MEDS ORDERED: Acetaminophen 325 MG TABLET PO PRN (16:18)
[2018-06-13] MEDS ORDERED: Naloxone 0.4 MG/ML INJ IVP PRN (16:18)
[2018-06-13] MEDS ORDERED: Albuterol 2.5 MG/3 ML NEBULIZER IH PRN (16:24)
--- NOTE | 2018-06-13 16:28 | Internal Med History&Physical ---
Date of Encounter: 06/13/18 Time of Encounter: 16:28 Internal Medicine - H&P: HPI Chief complaint: SOB Admitted From: Emergency Dept Plans for Post Hospital Care: Home History of present illness: Ms. Morales is a 88 year old female PMH asthma dementia DVT - According to the patient and daughters who are at bedside - she has been experiencing coughing and wheezing for approx 2 days- Cough is nonproductive no fevers or chills She has oxygen at home however she uses it as needed- she has not been using at this time. She has had a sick contact her caregiver who is her daughter has been treated for bronchitis - She was taken to Urgent care and started on Levaquin and steroids on Tuesday with little improvement. She did not receive flu or pneumonia vaccine. She presented to the ED with above complaint- CXR with no acute process there was concern for PE since patient has hx of DVT so CTA was completed CTA was negative for any PE Sats 93-94% on RA She was given IV solumedrol and breathing tx - Admitted for further workup and evaluation- Currently does not appear to be in any resp distress. I did discuss code status with family and patient who verbalized she would like to be a full code. Past Med Surg Social Fam HX - Past Medical History Medical history: asthma, DVT, dementia, hypertension Additional medical history: pneumonia Psychiatric history: anxiety - Past Surgical History Surgical History: hysterectomy Additional surgical history: EGD, duodenal ulcers - Social History Smoking Status: Never smoker Smokeless Tobacco Status: No Alcohol use: none Drug use: none - Family History Father Adopted: No Family Member Ethnicity: Non- Living Status: Hx Family Cardiac Disorders: Yes Hx Family Respiratory Disorders: No Hx Family Cancer: Yes (Melenoma) Hx Family GI Disorders: No Hx Family Endocrine Disorder: No Hx Family Neuromuscular Disorders: No Hx Family Neurologic Disorders: No Hx Family HEENT Disorders: No Hx Family Autoimmune Disorders: No Internal Medicine - H&P: Meds Albuterol Neb [AccuNeb] 1.25 mg IH Q12H PRN 06/13/18 [History] Benzonatate [Tessalon] 200 mg PO TID PRN 06/13/18 [History] Donepezil [Aricept] 10 mg PO DAILY 06/13/18 [History] Fluticasone/Salmeterol [Advair 250-50 Diskus] 1 puff IH BID 06/13/18 [History] Metoprolol Succinate [Toprol Xl] 12.5 mg PO DAILY 06/13/18 [History] Quetiapine Fumarate [Seroquel] 25 mg PO HS 06/13/18 [History] levoFLOXacin [Levofloxacin] 500 mg PO DAILY 06/13/18 [History] predniSONE [PredniSONE] 40 mg PO DAILY 06/13/18 [History] Allergy/AdvReac Type Severity Reaction Status Date / Time cefdinir [From Omnicef] AdvReac Hypertensio Verified 06/13/18 14:25 n All Systems PM: A 10-system review of systems was performed and is negative for pertinent findings except as documented above in the HPI. - Constitutional Constitutional: no chills, no fever(s), no night sweats - EENT Eyes: no change in vision, no discharge, no pain, no photophobia Ears: no ear discharge, no ear pain, no tinnitus Nose, mouth and throat: no dysphagia, no nasal discharge, no neck pain, no sore throat - Cardiovascular Cardiovascular ROS IM: no chest pain, no diaphoresis, no dyspnea, no lightheadedness, no palpitations, no syncope - Respiratory Respiratory: cough, wheezing - Gastrointestinal Gastrointestinal: no abdominal pain, no diarrhea, no hematemesis, no shraddha tochezia, no melena, no nausea, no vomiting - Genitourinary Genitourinary: no change in urinary stream, no dysuria, no flank pain, no hematuria - Musculoskeletal Musculoskeletal ROS IM: no numbness, no tingling - Integumentary Integumentary IM: no rash, no unusual bruising - Neurological Neurological ROS: no confusion, no convulsions, no focal weakness, no numbness, no tingling, no tremor(s) - Hematologic/Lymphatic Hematologic/Lymphatic: no easy bruising - Constitutional Vitals: Temp Pulse Resp BP Pulse Ox 98.3 F 105 19 134/77 97 06/13/18 13:01 06/13/18 15:53 06/13/18 15:08 06/13/18 15:53 06/13/18 15:53 General appearance: Present: A&O X 2 Exam: . - Head Head exam: Present: atraumatic, normocephalic - Eye Eye exam: Present: PERRL, conjuntiva pink, sclera anicteric Pupils: Present: PERRL - Neck Neck exam general surgery: Present: supple, trachea midline. Absent: lymphadenopathy - Respiratory Respiratory exam: Present: prolonged expiratory phase, wheezes. Absent: accessory muscle use, rales, rhonchi - Cardiovascular Cardiovascular exam: Present: RRR, +S1, +S2. Absent: diastolic murmur, gallop, rubs, systolic murmur - GI/Abdominal GI/Abdominal exam: Present: normal bowel sounds, soft, no peritoneal signs. A bsent: distended, tenderness - Extremities Exam Extremities exam: Present: warm, radial pulses palpable and symmetrical. Absent: calf tenderness, cyanotic, pedal edema - Neurological Exam Neurological exam: Present: CN II-XII intact, oriented X3, no focal deficits. Absent: pronater drift, facial droop, speech deficit - Skin Skin exam: Present: dry, intact Internal Med - H&P Results - Labs CBC & Chem 7: 06/13/18 13:03 06/13/18 13:03 Labs: Short CBC 06/13/18 Range/Units 13:03 WBC 8.2 (4.3-11.1) K/mcL Hgb 14.4 (11.5-15.4) g/dL Hct 42.8 (35.3-44.9) % Plt Count 152 (140-400) K/mcL Neutrophils # 7.1 (1.6-8.9) K/mcL BMP 06/13/18 13:03 Sodium 138 Potassium 3.9 Chloride 103 Carbon Dioxide 25 BUN 21 Creatinine 0.93 Glucose 86 Calcium 8.8 Cardiac Enzymes 06/13/18 Range/Units 13:03 Troponin I < 0.03 (< 0.04) ng/mL Liver Function 06/13/18 Range/Units 13:03 Total Bilirubin 0.8 (0.3-1.0) mg/dL Direct Bilirubin 0.2 (0.0-0.2) mg/dL AST 23 (13-39) Units/L ALT 13 (7-52) Units/L Alkaline Phosphatase 71 (34-104) Units/L Albumin 4.1 (3.5-5.7) g/dL - Impressions ITS Impressions Chest X-Ray 06/13/18 13:03 IMPRESSION: No acute cardiopulmonary process. D/ / Virginia Neal MD / Virginia Neal MD Interpreting Provider: Virginia Neal MD Chest CTA 06/13/18 13:47 IMPRESSION: No evidence of pulmonary embolism or acute pulmonary abnormality. Large hiatal hernia. Cholelithiasis. Low-attenuation lesion to the right thyroid lobe measuring 2.2 cm. Recommend nonemergent thyroid ultrasound. D/ /13/2018 15:06:09 Sergio Beaver MD / juan carlosyer Interpreting Provider: Sergio eBaver MD - Assessment and plan (1) Acute exacerbation of chronic obstructive airways disease Current Visit: No Status: Acute Assessment and plan: Hx of asthma- Has been experiencing coughing and wheezing for 2 days- nonproductive cough no fever - had sick exposure - was treated as outpatient oth oral steroids ATB with no improvement will check Resp panel has not had flu shot or pneumonia vaccine Wheezing throughout -cont with steroids - solumedrol 60mg IV every 6hrs Oxygen as needed to maintain spo2 > 92% bronchodilators cont levaquin (2) DVT prophylaxis Current Visit: No Status: Acute Assessment and plan: Lovenox subcutaneous (3) Hx of deep venous thrombosis Current Visit: No Status: Acute Assessment and plan: Family states that she is not on any anticoagulants - CTA negative for PE Heparin subq (4) Dementia Current Visit: No Status: Chronic Assessment and plan: 1 cont with aricept, seoquel Qualifiers: Dementia type: unspecified type Dementia behavioral disturbance: without behavioral disturbance Qualified Code(s): F03.90 - Unspecified dementia without behavioral disturbance (5) Hypertension Current Visit: No Status: Chronic Assessment and plan: controlled at this time - cont with home meds Qualifiers: Hypertension type: essential hypertension Qualified Code(s): I10 - Essential (primary) hypertension - Time Spent With Patient Total time spent is greater than 50% in coordination of care (as documented) at patient's floor/unit and/or counseling patient:
[2018-06-13] MEDS ORDERED: levoFLOXacin 500 MG TABLET PO SCH (16:45)
[2018-06-13] MEDS: Ipratropium/Albuterol Neb 3 ML IH SCH ×2 (18:00→22:07)
[2018-06-13 18:56] LABS: Adenovirus Not Detected (Not Detect); Coronavirus 229E Not Detected (Not Detect); Coronavirus HKU1 Not Detected (Not Detect); Coronavirus NL63 Not Detected (Not Detect); Coronavirus OC43 Not Detected (Not Detect); Human Metapneumovirus Not Detected (Not Detect); Human Rhinovirus/Enterovirus Not Detected (Not Detect)
[2018-06-13 18:57] LABS: Bordetella Pertussis Not Detected (Not Detect); Chlamydophila pneumoniae Not Detected (Not Detect); Influenza A Subtype 2009 H1 Not Detected (Not Detect); Influenza A Untypeable Not Detected (Not Detect); Influenza B Not Detected (Not Detect); Mycoplasma pneumoniae Not Detected (Not Detect); Parainfluenza Virus 1 Not Detected (Not Detect); Parainfluenza Virus 2 Not Detected (Not Detect); Parainfluenza Virus 3 Not Detected (Not Detect); Parainfluenza Virus 4 Not Detected (Not Detect); Respiratory Syncytial Virus Not Detected (Not Detect)
[2018-06-13] MEDS: Benzonatate 100 MG CAPSULE PO PRN (21:38)
[2018-06-13] MEDS: Budesonide/Formoterol 80/4.5 MDI IH SCH (22:07)
[2018-06-14] MEDS: methylPREDNISolone 125 MG/2 ML VIAL IVP SCH ×3 (01:05→16:57)
[2018-06-14] MEDS: Ipratropium/Albuterol Neb 3 ML IH SCH ×4 (05:09→22:53)
[2018-06-14 05:43] LABS: Basophils % 0.2 %; Hematocrit 37.7 % (35.3-44.9); Immature Granulocytes % 1.1 % (0-4); Lymphocytes # 0.4 K/mcL (0.6-4.6); Lymphocytes % 7.7 %; Mean Corpuscular HGB Conc 33.4 g/dL (31.6-35.5); Mean Corpuscular Hemoglobin 29.4 pg (28.0-33.3); Mean Corpuscular Volume 87.9 fL (83.0-100.0); Mean Platelet Volume 10.5 fL (9.4-12.4); Monocytes # 0.2 K/mcL (0.0-1.3); Monocytes % 2.6 %; Platelet Count 149 K/mcL (140-400); Red Blood Count 4.29 M/mcL (3.82-4.97); Red Cell Distribution Width 13.2 % (11.5-14.5); Segmented Neutrophils % 88.4 %
[2018-06-14 05:45] LABS: Hemoglobin 12.6 g/dL (11.5-15.4)
[2018-06-14 06:02] LABS: BUN/Creatinine Ratio 24 (6-26); Blood Urea Nitrogen 20 mg/dL (8-23); Calcium 8.6 mg/dL (8.6-10.3); Carbon Dioxide 24 mEq/L (23-29); Chloride 105 mEq/L (98-107); Glucose 186 mg/dL (70-105); Magnesium 1.9 mg/dL (1.6-2.6); Osmolality,Calculated 289 (280-300); Sodium 136 mEq/L (136-145); eGFR For Non-African Americans > 60 (> 60)
[2018-06-14] MEDS: *HR* Enoxaparin 40 MG/0.4 ML SYRINGE SQ SCH ×2 (06:04→06:07)
[2018-06-14] MEDS: Metoprolol XL (24 HR) Succ 25 MG TAB.ER.24H PO SCH (10:13)
[2018-06-14] MEDS: Benzonatate 100 MG CAPSULE PO PRN ×2 (10:16→16:56)
[2018-06-14] MEDS: Budesonide/Formoterol 80/4.5 MDI IH SCH ×2 (10:50→22:53)
--- NOTE | 2018-06-14 11:50 | Internal Med Progress Note ---
Hospitalist Progress Note - Encounter Date of Encounter: 06/14/18 Time of Encounter: 11:50 - Subjective Interval History: Patient was seen and examined at bedside currently does not appear to be any respiratory distress. States that she feels better no coughing noted encourage patient to ambulate - Exam Vitals: Temp Pulse Resp BP Pulse Ox 98.0 F 75 16 135/64 93 06/14/18 10:33 06/14/18 10:33 06/14/18 10:33 06/14/18 10:33 06/14/18 10:33 Exam: General appearance: Present: A&O X 2 Exam: . - Head Head exam: Present: atraumatic, normocephalic - Eye Eye exam: Present: PERRL, conjuntiva pink, sclera anicteric Pupils: Present: PERRL - Neck Neck exam general surgery: Present: supple, trachea midline. Absent: lymphadenopathy - Respiratory Respiratory exam: Present: prolonged expiratory phase, wheezes. Absent: accessory muscle use, rales, rhonchi - Cardiovascular Cardiovascular exam: Present: RRR, +S1, +S2 systolic murmur noted Absent: diastolic murmur, gallop, rubs, - GI/Abdominal GI/Abdominal exam: Present: normal bowel sounds, soft, no peritoneal signs. Absent: distended, tenderness - Extremities Exam Extremities exam: Present: warm, radial pulses palpable and symmetrical. Absent: calf tenderness, cyanotic, pedal edema - Neurological Exam Neurological exam: Present: CN II-XII intact, oriented X3, no focal deficits. Absent: pronater drift, facial droop, speech deficit - Skin Skin exam: Present: dry, intact - Assessment and Plan (1) Influenza A Current Visit: Yes Status: Acute Assessment and Plan: Respiratory panel was completed which did show positive influenza A-patient did not receive flu vaccine this year. She has been experiencing symptoms greater than 48 hours-no Tamiflu at this time supportive care only. We will continue with bronchodilators as well as steroids for wheezing. Tylenol for aches and fever (2) Acute exacerbation of chronic obstructive airways disease Current Visit: No Status: Acute Assessment and Plan: Hx of asthma- Has been experiencing coughing and wheezing for 2 days- nonproductive cough no fever - had sick exposure - was treated as outpatient oth oral steroids ATB with no improvement will check Resp panel has not had flu shot or pneumonia vaccine Wheezing throughout -cont with steroids - solumedrol 60mg IV every 6hrs Oxygen as needed to maintain spo2 > 92% bronchodilators cont levaquin 06/14/2018 Most likely secondary to influenza-wheezing has improved today we will continue with IV steroids at this time since patient did fail outpatient steroid treatment Oxygen as needed to maintain SPO2 greater than 90% Continue with bronchodilators (3) DVT prophylaxis Current Visit: No Status: Acute Assessment and Plan: Lovenox subcutaneous (4) Hx of deep venous thrombosis Current Visit: No Status: Acute Assessment and Plan: Family states that she is not on any anticoagulants - CTA negative for PE Heparin subq 06/14/2018 CTA negative for PE continue with heparin subcutaneous Encourage patient to ambulate (5) Dementia Current Visit: No Status: Chronic Assessment and Plan: 1 cont with aricept, seoquel -patient is pleasant and cooperative at this time (6) Hypertension Current Visit: No Status: Chronic Assessment and Plan: controlled at this time - cont with home meds - Time Spent with Patient Total time spent is greater than 50% in coordination of care (as documented) at patient's floor/unit and/or counseling patient: Internal Medicine: Result - Labs CBC & Chem 7: 06/14/18 04:29 06/14/18 04:29 Labs: Short CBC 06/13/18 06/14/18 Range/Units 13:03 04:29 WBC 8.2 5.7 (4.3-11.1) K/mcL Hgb 14.4 12.6 D (11.5-15.4) g/dL Hct 42.8 37.7 (35.3-44.9) % Plt Count 152 149 (140-400) K/mcL Neutrophils # 7.1 5.0 (1.6-8.9) K/mcL BMP 06/13/18 06/14/18 13:03 04:29 Sodium 138 136 Potassium 3.9 4.0 Chloride 103 105 Carbon Dioxide 25 24 BUN 21 20 Creatinine 0.93 0.84 Glucose 86 186 H Calcium 8.8 8.6 Cardiac Enzymes 06/13/18 Range/Units 13:03 Troponin I < 0.03 (< 0.04) ng/mL Liver Function 06/13/18 Range/Units 13:03 Total Bilirubin 0.8 (0.3-1.0) mg/dL Direct Bilirubin 0.2 (0.0-0.2) mg/dL AST 23 (13-39) Units/L ALT 13 (7-52) Units/L Alkaline Phosphatase 71 (34-104) Units/L Albumin 4.1 (3.5-5.7) g/dL - ABG Interpretation ABG results: PT/INR, D-dimer PT 12.3 Seconds (9.4-12.1) H 06/13/18 13:03 - Impressions Impressions Chest X-Ray 06/13/18 13:03 IMPRESSION: No acute cardiopulmonary process. D/ / Virginia Neal MD / Virginia Neal MD Interpreting Provider: Virginia Neal MD Chest CTA 06/13/18 13:47 IMPRESSION: No evidence of pulmonary embolism or acute pulmonary abnormality. Large hiatal hernia. Cholelithiasis. Low-attenuation lesion to the right thyroid lobe measuring 2.2 cm. Recommend nonemergent thyroid ultrasound. D/ /13/2018 15:06:09 Sergio Beaver MD / grant Interpreting Provider: Sergio Beaver MD Consult Discharge Plan - Plan Referrals: Chrissy Marie, DO [Primary Care Provider] - (5) Dementia Qualifiers: Dementia type: unspecified type Dementia behavioral disturbance: without behavioral disturbance Qualified Code(s): F03.90 - Unspecified dementia without behavioral disturbance (6) Hypertension Qualifiers: Hypertension type: essential hypertension Qualified Code(s): I10 - Essential (primary) hypertension
[2018-06-14] MEDS ORDERED: levoFLOXacin 250 MG TABLET PO SCH (15:00)
--- NOTE | 2018-06-14 15:44 | Electrocardiograph Report ---
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
[2018-06-15] MEDS: Ipratropium/Albuterol Neb 3 ML IH SCH ×2 (03:42→10:13)
[2018-06-15 04:44] LABS: Basophils % 0.3 %; Hematocrit 38.3 % (35.3-44.9); Hemoglobin 12.8 g/dL (11.5-15.4); Immature Granulocytes % 1.5 % (0-4); Lymphocytes # 0.7 K/mcL (0.6-4.6); Lymphocytes % 9.9 %; Mean Corpuscular HGB Conc 33.4 g/dL (31.6-35.5); Mean Corpuscular Hemoglobin 29.3 pg (28.0-33.3); Mean Corpuscular Volume 87.6 fL (83.0-100.0); Monocytes # 0.3 K/mcL (0.0-1.3); Neutrophils # 5.6 K/mcL (1.6-8.9); Platelet Count 158 K/mcL (140-400); Red Blood Count 4.37 M/mcL (3.82-4.97); Red Cell Distribution Width 13.2 % (11.5-14.5); Segmented Neutrophils % 84.3 %
[2018-06-15 05:02] LABS: BUN/Creatinine Ratio 25 (6-26); Blood Urea Nitrogen 20 mg/dL (8-23); Calcium 8.8 mg/dL (8.6-10.3); Carbon Dioxide 27 mEq/L (23-29); Chloride 105 mEq/L (98-107); Glucose 155 mg/dL (70-105); Osmolality,Calculated 290 (280-300); Potassium 4.2 mEq/L (3.5-5.1); Sodium 137 mEq/L (136-145); eGFR For Non-African Americans > 60 (> 60)
[2018-06-15] MEDS ORDERED: *HR* Enoxaparin 30 MG/0.3 ML SYRINGE SQ SCH (06:00)
[2018-06-15] MEDS: methylPREDNISolone 125 MG/2 ML VIAL IVP SCH (06:31)
[2018-06-15] MEDS: Metoprolol XL (24 HR) Succ 25 MG TAB.ER.24H PO SCH (08:54)
[2018-06-15] MEDS: Budesonide/Formoterol 80/4.5 MDI IH SCH (10:13)
--- NOTE | 2018-06-15 11:18 | Discharge Summary ---
- NOTES TO OUTPATIENT PROVIDER Notes to Outpatient Provider: COPD excerbation positive for Influenza A- given steroid taper. Qualified for O2 cont 2 L NC. Did have slightly elevated BP during admission suspect rt steroids - cont to monitor BP as outpatient Orders not resulted at time of discharge: Pending orders 06/13/18 13:19 Culture,Blood [BC] Stat Date of Encounter: 06/15/18 Time of Encounter: 11:13 - Discharge Diagnosis (1) Influenza A Priority: Secondary Status: Acute (2) Acute exacerbation of chronic obstructive airways disease Priority: Primary Status: Acute (3) Hx of deep venous thrombosis Priority: Secondary Status: Acute (4) Dementia Priority: Secondary Status: Chronic Qualifiers: Dementia type: unspecified type Dementia behavioral disturbance: without behavioral disturbance Qualified Code(s): F03.90 - Unspecified dementia without behavioral disturbance (5) Hypertension Priority: Secondary Status: Chronic Qualifiers: Hypertension type: essential hypertension Qualified Code(s): I10 - Essential (primary) hypertension Hospital course: Ms. Morales is a 88 year old female [facility] asthma dementia DVT - According to the patient and daughters who are at bedside - she has been experiencing coughing and wheezing for approx 2 days- Cough is nonproductive no fevers or chills She has oxygen at home however she uses it as needed- she has not been using at this time. She has had a sick contact her caregiver - She was taken to Urgent care and started on Levaquin and steroids on Tuesday with little improvement. She did not receive flu or pneumonia vaccine.CXR with no acute proces, Resp panel- Influenza A - She received steroids IV and bronchodilators- Had sx for over 2 days so no Tamiflu given- Her sats were stable during admission/ however she did qualify for oxygen per 6 min walk test. Oxygen has been set up per case preparer and liner Her resp state has improved no wheezing- does have a dry cough no fever- Advised family and patient to follow up with PCP She was given prescription for steroid taper She is hemodynamically stable at this time and ready for discharge Discharge discussed with: patient, family - Time Spent with Patient Total time spent providing and/or coordinating discharge services: - Discharge Medications Prescriptions: predniSONE [PredniSONE] 10 mg PO DAILY #30 tablet Home Medications: Albuterol Neb [AccuNeb] 1.25 mg IH Q12H PRN 06/13/18 [History] Benzonatate [Tessalon] 200 mg PO TID PRN 06/13/18 [History] Donepezil [Aricept] 10 mg PO DAILY 06/13/18 [History] Fluticasone/Salmeterol [Advair 250-50 Diskus] 1 puff IH BID 06/13/18 [History] Metoprolol Succinate [Toprol Xl] 12.5 mg PO DAILY 06/13/18 [History] Quetiapine Fumarate [Seroquel] 25 mg PO HS 06/13/18 [History] predniSONE [PredniSONE] 40 mg PO DAILY 06/13/18 [History] predniSONE [PredniSONE] 10 mg PO DAILY #30 tablet 06/15/18 [Rx] Allergies/Adverse Reactions: Allergy/AdvReac Type Severity Reaction Status Date / Time cefdinir [From Omnicef] AdvReac Hypertensio Verified 06/13/18 14:25 n Date of admission: 06/14/18 09:37 Primary care physician: Javad Ivey Discharging clinician: Olesya Rocha Anticipated date of discharge: 06/15/18 - Constitutional Vitals: Temp Pulse Resp BP Pulse Ox 97.6 F 86 16 148/85 99 06/15/18 07:19 06/15/18 09:39 06/15/18 10:12 06/15/18 09:39 06/15/18 10:12 General appearance: Present: A&O X 2 Exam: General appearance: Present: A&O X 2 Exam: . - Head Head exam: Present: atraumatic, normocephalic - Eye Eye exam: Present: PERRL, conjuntiva pink, sclera anicteric Pupils: Present: PERRL - Neck Neck exam general surgery: Present: supple, trachea midline. Absent: lymphadenopathy - Respiratory Respiratory exam: Present: prolonged expiratory phase, wheezes. Absent: accesso ry muscle use, rales, rhonchi - Cardiovascular Cardiovascular exam: Present: RRR, +S1, +S2 systolic murmur noted Absent: diastolic murmur, gallop, rubs, - GI/Abdominal GI/Abdominal exam: Present: normal bowel sounds, soft, no peritoneal signs. Absent: distended, tenderness - Extremities Exam Extremities exam: Present: warm, radial pulses palpable and symmetrical. Absent: calf tenderness, cyanotic, pedal edema - Neurological Exam Neurological exam: Present: CN II-XII intact, oriented X3, no focal deficits. Absent: pronater drift, facial droop, speech deficit - Skin Skin exam: Present: dry, intact - Head Head exam: Present: atraumatic, normocephalic - Eye Eye exam: Present: PERRL, conjuntiva pink, sclera anicteric Pupils: Present: PERRL - Neck Neck exam general surgery: Present: supple, trachea midline. Absent: lymphadenopathy - Respiratory Respiratory exam: Present: CTAB. Absent: accessory muscle use, rales, rhonchi, wheezes - Cardiovascular Cardiovascular exam: Present: RRR, +S1, +S2, systolic murmur. Absent: diastolic murmur, gallop, rubs - GI/Abdominal GI/Abdominal exam: Present: normal bowel sounds, soft, no peritoneal signs. Absent: distended, tenderness - Extremities Exam Extremities exam: Present: warm, radial pulses palpable and symmetrical. Absent: calf tenderness, cyanotic, pedal edema - Neurological Exam Neurological exam: Present: CN II-XII intact, oriented X3, no focal deficits. Absent: pronater drift, facial droop, speech deficit - Skin Skin exam: Present: dry, intact - Patient Status Disposition: Home, Self-Care Condition: Fair Functional capacity at discharge: independent ambulation Overall status at discharge: patient is back to baseline - Discharge Instructions Instructions: Asthma (DC) Follow Up With: Chrissy Marie DO [Primary Care Provider] - 06/21/18 9:30 am Additional Instructions: Call [facility] when you get home to have portable oxygen tanks delivered if you need them. #[phone] - Diet and Activity Activity: increase activity as tolerated Diet: advance to your usual diet
[2018-06-15 11:54] VITALS: BP 151/78
[2018-06-16] MEDS ORDERED: Metoprolol XL (24 HR) Succ 25 MG TAB.ER.24H PO SCH (09:00)
== END 2018-06-15 14:50 | disposition home or self-care (01) | DRG 194 ==
LOC: EMEROOARM 12:46 → 3BNU 12:46
PROVIDERS: ADMIT Internal Medicine; ATTEND Internal Medicine

== ENCOUNTER 2019-12-08 16:29 | Observation (INO) ==
[2019-12-08] MEDS ORDERED: Isovue-370 500 ML BOTTLE IVP ONE (17:11)
[2019-12-08 17:37] LABS: Basophils % 0.5 %; Hematocrit 35.2 % (35.3-44.9); Hemoglobin 11.1 g/dL (11.5-15.4); Immature Granulocytes % 0.4 % (0-4); Lymphocytes # 0.8 K/mcL (0.6-4.6); Lymphocytes % 10.2 %; Mean Corpuscular HGB Conc 31.5 g/dL (31.6-35.5); Mean Corpuscular Hemoglobin 27.5 pg (28.0-33.3); Mean Corpuscular Volume 87.1 fL (83.0-100.0); Mean Platelet Volume 9.5 fL (9.4-12.4); Monocytes # 0.9 K/mcL (0.0-1.3); Monocytes % 10.7 %; Neutrophils # 6.4 K/mcL (1.6-8.9); Platelet Count 247 K/mcL (140-400); Red Blood Count 4.04 M/mcL (3.82-4.97); Red Cell Distribution Width 13.1 % (11.5-14.5); Segmented Neutrophils % 78.2 %; White Blood Count 8.2 K/mcL (4.3-11.1)
[2019-12-08 17:44] LABS: INR 1.3; Prothrombin Time 15.1 Seconds (9.4-12.1)
[2019-12-08 17:47] LABS: Activated Partial Thrombo Time 27.3 Seconds (26.0-36.0)
[2019-12-08 17:59] LABS: Acetaminophen < 10 mcg/mL (10-20); Alanine Aminotransferase 7 Units/L (7-52); Albumin 3.2 g/dL (3.5-5.7); Albumin/Globulin Ratio 1.3 (1.1-2.2); Alkaline Phosphatase 54 Units/L (34-104); Aspartate Amino Transferase 15 Units/L (13-39); BUN/Creatinine Ratio 17 (6-26); Bilirubin,Total 0.9 mg/dL (0.3-1.0); Blood Urea Nitrogen 11 mg/dL (8-23); Carbon Dioxide 23 mEq/L (23-29); Chloride 103 mEq/L (98-107); Ethanol < 10 mg/dL (Less than 10); Globulin 2.5 g/dL (2.4-3.5); Glucose 118 mg/dL (70-105); Lipase 37 Units/L (11-82); Osmolality,Calculated 284 (280-300); Potassium 3.2 mEq/L (3.5-5.1); Salicylate < 2.5 mg/dL (15.0-30.0); Sodium 137 mEq/L (136-145); Total Protein 5.7 g/dL (6.4-8.9); eGFR For African Americans > 60 (> 60); eGFR For Non-African Americans > 60 (> 60)
[2019-12-08 18:06] LABS: Amphetamine Screen,Urine Negative ng/mL (Cutoff=1000); Barbiturate Screen,Urine Negative ng/mL (Cutoff=200); Benzodiazepines Screen,Urine Negative ng/mL (Cutoff=200); Cannabinoid Screen,Urine Negative ng/mL (Cutoff = 50); Cocaine Screen,Urine Negative ng/mL (Cutoff= 300); Opiate Screen,Urine Positive ng/mL (Cutoff=300); Phencyclidine Screen,Urine Negative ng/mL (Cutoff=25)
[2019-12-08 18:11] LABS: Bacteria,Urine Few per hpf (None-Few); Bilirubin,Urine Negative (Negative); Blood,Urine Moderate (Negative); Clarity,Urine Turbid (Clear); Color,Urine Yellow (Yellow); Glucose,Urine (UA) Normal (Normal); Hyaline Casts,Urine Few per lpf (None Seen); Ketones,Urine 40 mg/dL (Negative); Leukocyte Esterase,Urine Large (Negative); Mucus,Urine Moderate per lpf (None-Few); Nitrite,Urine Negative (Negative); Protein,Urine 30 mg/dL (Neg-Trace); Renal Epithelial Cells,Urine Few per hpf (None-Few); Squamous Epithelial Cell,Urine Moderate per hpf (None-Few); Transitional Epi Cells,Urine Few per hpf (None-Few); Urobilinogen,Urine Normal (Normal); WBC,Urine 30-50 per hpf (0-3)
[2019-12-08 18:12] LABS: Troponin I 0.04 ng/mL (< 0.04)
[2019-12-08 18:15] LABS: Thyroid Stimulating Hormone 0.822 mcIU/mL (0.340-5.600)
[2019-12-08] MEDS ORDERED: Naloxone 0.4 MG/ML INJ IVP PRN (23:53)
[2019-12-08] MEDS ORDERED: Potassium Chloride 40 MEQ, Lidocaine 1% 2 ML in 0.9 % Sodium Chloride 500 ML IVPB ONE (23:56)
[2019-12-09 00:20] LABS: Hematocrit 31.9 % (35.3-44.9); Hemoglobin 10.4 g/dL (11.5-15.4); Mean Corpuscular HGB Conc 32.6 g/dL (31.6-35.5); Mean Corpuscular Hemoglobin 28.3 pg (28.0-33.3); Mean Corpuscular Volume 86.9 fL (83.0-100.0); Mean Platelet Volume 9.7 fL (9.4-12.4); Platelet Count 227 K/mcL (140-400); Red Blood Count 3.67 M/mcL (3.82-4.97); Red Cell Distribution Width 13.2 % (11.5-14.5); White Blood Count 7.3 K/mcL (4.3-11.1)
[2019-12-09 07:54] LABS: BUN/Creatinine Ratio 16 (6-26); Blood Urea Nitrogen 10 mg/dL (8-23); Calcium 8.4 mg/dL (8.6-10.3); Carbon Dioxide 23 mEq/L (23-29); Chloride 107 mEq/L (98-107); Glucose 75 mg/dL (70-105); Magnesium 1.7 mg/dL (1.6-2.6); Osmolality,Calculated 286 (280-300); Phosphorous 2.6 mg/dL (2.7-4.5); Potassium 3.6 mEq/L (3.5-5.1); Sodium 139 mEq/L (136-145); eGFR For African Americans > 60 (> 60); eGFR For Non-African Americans > 60 (> 60)
[2019-12-09 07:56] LABS: Hematocrit 33.7 % (35.3-44.9); Hemoglobin 10.7 g/dL (11.5-15.4); Mean Corpuscular HGB Conc 31.8 g/dL (31.6-35.5); Mean Corpuscular Hemoglobin 27.6 pg (28.0-33.3); Mean Corpuscular Volume 87.1 fL (83.0-100.0); Mean Platelet Volume 9.7 fL (9.4-12.4); Platelet Count 277 K/mcL (140-400); Red Blood Count 3.87 M/mcL (3.82-4.97); Red Cell Distribution Width 13.2 % (11.5-14.5); White Blood Count 6.5 K/mcL (4.3-11.1)
[2019-12-09 08:01] LABS: Troponin I 0.04 ng/mL (< 0.04)
[2019-12-09] MEDS: Piperacillin/Tazobactam 3.375 GM in 0.9 % Sodium Chloride Mini Bag 100 ML IVPB SCH ×3 (09:43→23:20)
[2019-12-09] MEDS: Budesonide/Formoterol 80/4.5 1 PUFF INH IH SCH ×2 (11:09→20:05)
[2019-12-09] MEDS: Metoprolol XL (24 HR) Succ 25 MG TAB.ER.24H PO SCH (11:32)
[2019-12-09] MEDS ORDERED: 0.9 % Sodium Chloride 500 ML IVC SCH (15:30)
[2019-12-09] MEDS: Hydrocortisone Rectal 2.5% CRM 28 GM TUBE RC SCH ×2 (19:02→21:38)
[2019-12-09] MEDS: Hydrocortisone Acetate 25 MG RECTAL SUPPOSITORY RC SCH (21:39)
[2019-12-09] MEDS ORDERED: Acetaminophen 325 MG TABLET PO PRN (23:52)
[2019-12-10 03:32] LABS: Hematocrit 30.4 % (35.3-44.9); Hemoglobin 9.7 g/dL (11.5-15.4)
[2019-12-10] MEDS: Budesonide/Formoterol 80/4.5 1 PUFF INH IH SCH (08:04)
[2019-12-10] MEDS ORDERED: Loratadine 10 MG TABLET PO SCH (09:00)
[2019-12-10] MEDS ORDERED: Metoprolol XL (24 HR) Succ 50 MG TAB.ER.24H PO SCH (09:00)
[2019-12-10] MEDS ORDERED: 0.9 % Sodium Chloride Mini Bag 100 ML ONE (09:06)
[2019-12-10] MEDS: Metoprolol XL (24 HR) Succ 25 MG TAB.ER.24H PO SCH (09:08)
[2019-12-10] MEDS: Piperacillin/Tazobactam 3.375 GM in 0.9 % Sodium Chloride Mini Bag 100 ML IVPB SCH (09:09)
[2019-12-10 10:58] VITALS: BP 141/78
[2019-12-10] MEDS: Hydrocortisone Rectal 2.5% CRM 28 GM TUBE RC SCH (11:54)
[2019-12-10] MEDS: Hydrocortisone Acetate 25 MG RECTAL SUPPOSITORY RC SCH (11:54)
== END 2019-12-10 11:57 | disposition home health service (06) ==
LOC: 3BNU 16:29 → EMEROOARM 16:29 → SUATTDRO 20:12 → 3BNU 20:51
PROVIDERS: ADMIT Family Medicine; ATTEND Internal Medicine